=== PATIENT | male | born 1950 | race Caucasian/White ===

== ENCOUNTER → 2018-03-01 09:07 | Outpatient (CLI) | payer MEDICARE, OTHER, SELFPAY ==
--- NOTE | 2018-03-01 | PATH_ITS ---
Note [facility] Accession Number: [id number] TESTS RESULT FLAG UNITS REF RANGE LAB Clinician Provided Cytology Information No. of containers..01 ThinPrep Vial URINE DIAGNOSIS: 02 URINE NEGATIVE FOR HIGH-GRADE UROTHELIAL CARCINOMA ([facility]). Pathologist ICD10: 02 Z13.89 02 Ander Vanegas MD, Pathologist NPI- [id number] Jossie Vásquez, Network Support Administrator (ASC) 01 60 CC, YELLOW, CLOUDY /LCS FLAG LEGEND: L-Low Normal,H-High Normal,LL-Alert Low,HH-Alert High <-Panic Low,>-Panic High,A-Abnormal,AA-Critical Abnormal Performed at: 01 =Z [facility] [address], [place] [address] Ritchie Botello MD, 02 [facility] [address] [place] [id number] Cj Slade MD, A duplicate report has been generated due to demographic updates. Performed at: 01 [facility] [address], [place], [place] [id number] MD Ritchie Botello MD Phone: [phone]
[2018-03-01 09:22] LABS: Bacteria Urine None Seen
[2018-03-01 09:40] LABS: Add Manual Diff / Slide Review NO; Basophils Percent Auto 0.4 % (0-2); Eosinophils Percent Auto 2.8 % (2-4); Hematocrit 42.3 % (41-53); Hemoglobin 14.2 g/dL (13.5-17.5); Lymphocytes Percent Auto 24.6 % (25-40); Mean Corpuscular HGB Conc 33.5 % (30-36); Mean Corpuscular Hemoglobin 30.1 PG (26-34); Mean Corpuscular Volume 89.8 fL (80-100); Monocytes Percent Auto 7.5 % (3-14); Neutrophils Absolute Auto 4400 /uL (3000-5900); Neutrophils Percent Auto 64.7 % (50-75); Platelet Count 166 X10^3/uL (150-400); Red Blood Cell Count 4.71 X10^6/uL (4.5-5.9); Red Cell Distribution Width 14.1 % (11.6-14.8); White Blood Cell Count 6.9 X10^3/uL (4.5-11.0)
[2018-03-01 09:45] LABS: Appearance Urine UA CLOUDY; Bilirubin Urine UA NEGATIVE (NEGATIVE); Color Urine UA YELLOW; Glucose Urine UA NEGATIVE (Normal); Ketones Urine UA NEGATIVE (NEGATIVE); Leukocyte Esterase Urine UA 1+ (NEGATIVE); Nitrite Urine UA POSITIVE (Negative); Occult Blood Urine UA 1+ (Negative); Protein Urine UA 1+ (Negative); Specific Gravity Urine UA 1.015 (1.000-1.035); Urobilinogen Urine UA 0.2 E.U./dL (0.2)
[2018-03-01 10:31] LABS: Alanine Aminotransferase 25 IU/L (21-72); Albumin 3.8 g/dL (3.5-5.0); Albumin Globulin Ratio 1.3 (1.0-2.8); Alkaline Phosphatase 121 U/L (38-126); Aspartate Aminotransferase 18 IU/L (17-59); BUN Creatinine Ratio 23.3 (6-22); Bilirubin Total 0.3 mg/dL (0.2-1.3); Blood Urea Nitrogen 21 mg/dL (9-20); Carbon Dioxide 20 mmol/L (22-32); Chloride 110 mmol/L (98-107); Estimated Glomerular Filt Rate > 60.0 mL/min (>60); Glucose 114 mg/dL (80-110); HEMOLYSIS < 15 (0-50); Potassium 4.4 mmol/L (3.4-5.1); Sodium 140 mmol/L (137-145); Total Protein 6.8 g/dL (6.3-8.2)
[2018-03-01 10:32] LABS: RBC Urine 1-5/HPF (0-5/HPF); WBC Urine 10-30/HPF (0-5/HPF)
[2018-03-01 10:33] LABS: Amorphous Sediment Urine 3+; Culture Indicated Urine Specimen Cultured; Red Blood Cell Casts Urine 30-100/LPF (1-5/LPF)
--- NOTE | 2018-03-01 15:39 | PC.NURSE ---
Addendum entered by Cindi Grove R.N. 03/03/18 14:58: Micro came back on pt's urine submitted on 03/01. It's + for klebseilla pneumoniae. Sensitivity report faxed to [facility] clinic as well as [facility] (DR Dahl there today). Also called and spoke with Katharine to report + results and left message on [facility] clinic voicemail regarding the positive results. Original Note: Pt in for pre visit labs and urine specimen. Urine is being cx at this time. Source of urine was suprapubic catheter. Last time pt was seen her was approx 1 year ago and has since established care from Dr Garcia to Dr Dahl at the [facility]. I did fax these results to him for follow up. I tried to contact the clinic several times without success. Will brief 03/02 triage for follow up
--- NOTE | 2018-03-02 | DI.CT.S_ITS ---
PROCEDURE: CT ABDOMEN PELVIS WO/W CON INDICATIONS: survvaillence prostat cancer TECHNIQUE: After the administration of oral contrast, 5 mm thick sections acquired from the diaphragms to the iliac crests. After the administration of intravenous contrast, 5 mm thick sections acquired from the diaphragms to the symphysis. 5 mm thick coronal and sagittal reformats were acquired. For radiation dose reduction, the following was used: automated exposure control, adjustment of mA and/or kV according to patient size. COMPARISON: [facility], CT, IVP (ABD & PEL WWO CONTRAST), 12/13/2013, 9:51. [facility], CT, IVP (ABD & PEL WWO CONTRAST), 08/03/2014, 9:19. [facility], CT, IVP (ABD & PEL WWO CONTRAST), 02/27/2015, 11:43. [facility], CT, IVP (ABD & PEL WWO CONTRAST), 02/29/2016, 9:22. [facility], CT, IVP (ABD & PEL WWO CONTRAST), 03/03/2017, 10:39. FINDINGS: Image quality: Excellent. ABDOMEN: Lung bases: Lung bases are clear. Heart size is normal. Solid organs: Liver is normal in size and enhancement. Hepatic cyst is again noted measuring 6.3 cm on current study. Gallbladder appears normal. Biliary system is non-dilated. Pancreas enhances normally. Spleen is normal in size and enhancement. Splenules present anterior to the upper pole and at the anterior hilum of the spleen. 1 cm right adrenal nodule is unchanged and shows an internal attenuation of 9, consistent with adenoma. Both kidneys are normal in size. Small exophytic hypodensity in the anterolateral lower pole of the left kidney is unchanged. No hydronephrosis or nephrolithiasis. Bowel and peritoneum: Stomach, small and large bowel loops are normal in caliber and wall thickness. Surgical sutures adjacent to the cecum with nonvisualized appendix. Colonic diverticulosis. No free fluid or air. Nodes and vessels: No retroperitoneal or mesenteric adenopathy by size criteria. Aorta and inferior vena are normal in caliber. Miscellaneous: Supraumbilical hernia contains nonobstructed small bowel loops and fat. PELVIS: Genitourinary: Urinary bladder has been resected and neobladder is present with ileal conduit and right lower quadrant stoma. Prostate and seminal vesicles are nonvisualized.. Miscellaneous: No inguinal hernias or adenopathy. Bones: No suspicious bony lesions. No vertebral body compression fractures. IMPRESSION: 1. Status post urinary bladder resection with ileal conduit, no focal recurrence or metastatic disease seen. Status post prostatectomy. 2. Large hepatic cyst is unchanged. The 9 mm left renal cyst appears unchanged 3. 1 cm right adrenal adenoma is stable. 4. Uncomplicated colonic diverticulosis. Status post appendectomy. 5. Ventral hernia. Dictated by: Luis Reeder M.D. on 03/02/2018 at 11:35 Approved by: Luis Reeder M.D. on 03/02/2018 at 11:51
== END ==
PROVIDERS: Nurse Practitioner Gerontology; Family Provider Internal Medicine; PCP Internal Medicine; Visit Provider Internal Medicine Hematology & Oncology
DX: C67.9 Malignant neoplasm of bladder, unspecified (principal)
CPT/HCPCS: 36415; 80053; 81001; 85025; 87077; 87086; 87186

== ENCOUNTER → 2018-03-02 12:00 | Outpatient (CLI) | payer MEDICARE, OTHER, SELFPAY | PROVIDERS: Family Provider Internal Medicine; PCP Internal Medicine; Visit Provider Registered Nurse | DX: C67.9 Malignant neoplasm of bladder, unspecified (principal); C61 Malignant neoplasm of prostate; K76.89 Other specified diseases of liver; N28.1 Cyst of kidney, acquired; D35.01 Benign neoplasm of right adrenal gland; K57.90 Diverticulosis of intestine, part unspecified, without perforation or abscess without bleeding; K43.9 Ventral hernia without obstruction or gangrene | CPT/HCPCS: 71046; 74178; Q9967 ==

== ENCOUNTER → 2018-03-23 15:56 | Outpatient (CLI) | payer MEDICARE, OTHER, SELFPAY | LOC: DI 15:59 → CT 16:01 | PROVIDERS: Family Provider Internal Medicine; PCP Internal Medicine; Visit Provider Internal Medicine Hematology & Oncology | DX: Z53.9 Procedure and treatment not carried out, unspecified reason (principal) ==

== ENCOUNTER 2018-05-18 14:30 | Outpatient (RCR) | payer MEDICARE, OTHER, SELFPAY ==
--- NOTE | 2018-01-13 15:30 | PT.OIE ---
Current Diagnoses Morbid (severe) obesity due to excess calories (01/13/18) Pain in right knee (01/13/18) Pain in left knee (01/13/18) Low back pain (01/13/18) Difficulty in walking, not elsewhere classified (01/13/18) Weakness (01/13/18) Past Medical History (Last Updated 01/13/18 @ 15:12 by Lorenza Keating, PT) Depression (Acute) Past Surgical History (Last Updated 01/13/18 @ 15:13 by Lorenza Keating, PT) History of total knee arthroplasty (Acute) History of urostomy (Acute) Provider Visit Care Team Role Provider Type Esteban Garcia MD Family Provider Physician Primary Care Provider Specialty: Internal Medicine Address: [address] [place] [address], [id number] Email: HECTOR Encinas Attending Provider Advanced Practioner Clinician Specialty: Medical Address: [address] [place] [address], [id number] Email: Physical Therapy Initial Evaluation PT-OP-A Visit Information Start: 01/13/18 07:25 Freq: Status: Active Protocol: Document 01/13/18 14:58 [facility] (Rec: 01/13/18 15:29 [facility] [email or web address]) Out-Patient Physical Therapy Visit Information Visit Information Visit Type Initial Evaluation Visit Start Time 08:20 Visit Stop Time 09:00 Total Visit Minutes 40 Visit Number 1 Number of PROJECT ADMINISTRATOR Visits 0 PT-OP-B Current Condition Start: 01/13/18 07:25 Freq: Status: Active Protocol: Document 01/13/18 14:58 [facility] (Rec: 01/13/18 15:29 [facility] [email or web address]) Current Condition History of Current Condition Current Complaints weakness, B knee pain & LBP History of Current Condition Pt reports has lost 45 lbs recently (30 lbs in past 10 weeks with help of [facility] ). [facility] wants his exercise directed by a PT d/t his issues of LBP & B knee pain. Pt wants to continue to loose weight and wants a program to support this without aggrevating his knees or LB. Pt has hx of TKA which he did PT for in the past and did attend aquatic PT which he cont to do his exercises 3 days a week. Pt reports B knees give him pain especially with walking, extended activity, stairs and late in the day. He also reports the outside of his L foot hurts d/ t his reported supination ( feet were not evaluated this session d/t time). Pt waers SAS shoes or sketchers to help this. Treatment Goals Patient/Caregiver Goals be able to walk more without knee pain or fatigue, get up/ down from floor, have program to loose weight that does not aggrevate his knees or back PT-OP-G Mobility & Gait Start: 01/13/18 07:25 Freq: Status: Active Protocol: Document 01/13/18 14:58 [facility] (Rec: 01/13/18 15:29 [facility] [email or web address]) OP Gait Assessment Comments Gait Comments Dec overall push off with inc lat lean. PT-OP-K Range of Motion Start: 01/13/18 07:25 Freq: Status: Active Protocol: Document 01/13/18 14:58 [facility] (Rec: 01/13/18 15:29 [facility] [email or web address]) Knee Goniometric Range of Motion Knee Measured in Degrees Right Patient Position Supine Flexion Active (degrees) 110 Extension Active (degrees) 2 Left Patient Position Supine Flexion Active (degrees) 115 Extension Active (degrees) 2 PT-OP-M Strength Start: 01/13/18 07:25 Freq: Status: Active Protocol: Document 01/13/18 14:58 [facility] (Rec: 01/13/18 15:29 [facility] [email or web address]) Hip Strength Hip Manual Muscle Testing Right Flexion (L2) 5 Normal External Rotation 4 Good Internal Rotation 4 Good Left Flexion (L2) 5 Normal External Rotation 4- Good- Internal Rotation 4 Good Knee Strength Knee Manual Muscle Testing Right Flexion (S2) 4+ Good+ Extension (L3) 4+ Good+ Left Flexion (S2) 4 Good Extension (L3) 4+ Good+ Ankle/Foot Strength Ankle and Foot Manual Muscle Testing Right Dorsiflexion (L4) 5 Normal Plantarflexion (S1) 4+ Good+ Left Dorsiflexion (L4) 5 Normal Plantarflexion (S1) 4+ Good+ Comments seated testing PT-OP-Q Treatments Start: 01/13/18 07:25 Freq: Status: Active Protocol: Document 01/13/18 14:58 [facility] (Rec: 01/13/18 15:29 [facility] [email or web address]) Cardio Equipment Recumbent Stepper (Sci-Fit) Duration (Minutes) 3 Other edu on set up of seat & screen & encouraged to do at pool PT-OP-T Assessment and Plan Start: 01/13/18 07:25 Freq: Status: Active Protocol: Document 01/13/18 14:58 [facility] (Rec: 01/13/18 15:29 [facility] [email or web address]) Physical Therapy Assessment Rehab Potential Rehabilitation Potential Good Evaluation Complexity Number of Personal Factors/Comorbidities 3 or More Number of Body Systems Impaired 4 or More Clinical Presentation at Evaluation Stable Impairments Impairments Balance Gait Pain ROM Strength Goals Three Impairment Strength Mcc Goal (LTG) 5/5 LE strength to allow pt to inc walking distance to 1 mile. LTG Duration 03/15/18 Two Impairment up/down from ground Mcc Goal (LTG) Pt will be able to get up/down from ground independently & safely. LTG Duration 03/15/18 One Impairment strength Short Term Goal (STG) Indep with aquatic HEP STG Duration 02/12/18 Mcc Goal (LTG) Indep with gym program LTG Duration 03/15/18 Physical Therapy Plan Frequency and Duration Frequency of Treatment 2x/Week Duration of Treatment 2 months Plan of Care Start Date 01/13/18 Plan of Care End Date 03/15/18 Therapeutic Interventions Therapeutic Interventions Aquatic Therapy Balance Training Gait Training Manual Therapy Self-Care/Home Management Soft Tissue Mobilization Taping Therapeutic Exercises Modalities Cold Pack/Ice Massage Electric Stimulation Hot Packs Next Visit Focus/Plan Next Note Type Treatment Note Next Visit Plan Develop HEP for pool for challenging pt cardiovascularly & strength based for LEs & core; Teach patient about target HR
--- NOTE | 2018-01-13 15:30 | PT.OPPOC ---
Current Diagnoses Morbid (severe) obesity due to excess calories (01/13/18) Pain in right knee (01/13/18) Pain in left knee (01/13/18) Low back pain (01/13/18) Difficulty in walking, not elsewhere classified (01/13/18) Weakness (01/13/18) Provider Visit Care Team Role Provider Type Esteban Garcia MD Family Provider Physician Primary Care Provider Specialty: Internal Medicine Address: [address] [place] [address], [phone] Email: HECTOR Encinas Attending Provider Advanced Practioner Clinician Specialty: Medical Address: [address] [place] [address], [id number] Email: Plan Of Care PT-OP-T Assessment and Plan Start: 01/13/18 07:25 Freq: Status: Active Protocol: Document 01/13/18 14:58 [facility] (Rec: 01/13/18 15:29 [facility] [email or web address]) Physical Therapy Assessment Rehab Potential Rehabilitation Potential Good Evaluation Complexity Number of Personal Factors/Comorbidities 3 or More Number of Body Systems Impaired 4 or More Clinical Presentation at Evaluation Stable Impairments Impairments Balance Gait Pain ROM Strength Goals Three Impairment Strength Automatic Steel Tie Adjuster Goal (LTG) 5/5 LE strength to allow pt to inc walking distance to 1 mile. LTG Duration 03/15/18 Two Impairment up/down from ground Automatic Steel Tie Adjuster Goal (LTG) Pt will be able to get up/down from ground independently & safely. LTG Duration 03/15/18 One Impairment strength Short Term Goal (STG) Indep with aquatic HEP STG Duration 02/12/18 Jail Goal (LTG) Indep with gym program LTG Duration 03/15/18 Physical Therapy Plan Frequency and Duration Frequency of Treatment 2x/Week Duration of Treatment 2 months Plan of Care Start Date 01/13/18 Plan of Care End Date 03/15/18 Therapeutic Interventions Therapeutic Interventions Aquatic Therapy Balance Training Gait Training Manual Therapy Self-Care/Home Management Soft Tissue Mobilization Taping Therapeutic Exercises Modalities Cold Pack/Ice Massage Electric Stimulation Hot Packs Next Visit Focus/Plan Next Note Type Treatment Note Next Visit Plan Develop HEP for pool for challenging pt cardiovascularly & strength based for LEs & core; Teach patient about target HR Plan of Care Dates Plan of Care Start Date 01/13/18 Plan of Care End Date 03/15/18 Please Sign and Return: I have reviewed this Plan of Care and certify that the skilled therapy services above are required to meet the patient?s needs. Physician Signature Date Printed Name and Credentials Clinical Instructor Signature Printed Name and Credentials
--- NOTE | 2018-01-15 16:03 | PT.OTN ---
Current Diagnoses Morbid (severe) obesity due to excess calories (01/15/18) Pain in left knee (01/15/18) Physical Therapy Treatment Note PT-OP-A Visit Information Start: 01/13/18 07:25 Freq: Status: Active Protocol: Document 01/15/18 15:53 [facility] (Rec: 01/15/18 16:03 [facility] [id number]) Out-Patient Physical Therapy Visit Information Visit Information Visit Type Treatment Note Visit Start Time 11:00 Visit Stop Time 11:45 Total Visit Minutes 45 Visit Number 2 Number of RACING MANAGER Visits 0 Evaluation Information Evaluation Date 01/13/18 PT-OP-B Current Condition Start: 01/13/18 07:25 Freq: Status: Active Protocol: Document 01/13/18 14:58 [facility] (Rec: 01/13/18 15:29 [facility] [email or web address]) Current Condition History of Current Condition Current Complaints weakness, B knee pain & LBP History of Current Condition Pt reports has lost 45 lbs recently (30 lbs in past 10 weeks with help of [facility] ). [facility] wants his exercise directed by a PT d/t his issues of LBP & B knee pain. Pt wants to continue to loose weight and wants a program to support this without aggrevating his knees or LB. Pt has hx of TKA which he did PT for in the past and did attend aquatic PT which he cont to do his exercises 3 days a week. Pt reports B knees give him pain especially with walking, extended activity, stairs and late in the day. He also reports the outside of his L foot hurts d/ t his reported supination ( feet were not evaluated this session d/t time). Pt waers SAS shoes or sketchers to help this. Treatment Goals Patient/Caregiver Goals be able to walk more without knee pain or fatigue, get up/ down from floor, have program to loose weight that does not aggrevate his knees or back PT-OP-C Subjective Start: 01/13/18 07:25 Freq: Status: Active Protocol: Document 01/15/18 15:53 [facility] (Rec: 01/15/18 16:03 [facility] [id number]) OP-PT Subjective Patient Comments Patient Comments Excited to get started with aquatic therapy. Reports losing 29 lbs since starting at [facility]. Remains highly motivated. Frustrated that knee pain persists despite weight loss. PT-OP-G Mobility & Gait Start: 01/13/18 07:25 Freq: Status: Active Protocol: Document 01/13/18 14:58 [facility] (Rec: 01/13/18 15:29 [facility] [email or web address]) OP Gait Assessment Comments Gait Comments Dec overall push off with inc lat lean. PT-OP-K Range of Motion Start: 01/13/18 07:25 Freq: Status: Active Protocol: Document 01/13/18 14:58 [facility] (Rec: 01/13/18 15:29 [facility] [email or web address]) Knee Goniometric Range of Motion Knee Measured in Degrees Right Patient Position Supine Flexion Active (degrees) 110 Extension Active (degrees) 2 Left Patient Position Supine Flexion Active (degrees) 115 Extension Active (degrees) 2 PT-OP-M Strength Start: 01/13/18 07:25 Freq: Status: Active Protocol: Document 01/13/18 14:58 [facility] (Rec: 01/13/18 15:29 [facility] [email or web address]) Hip Strength Hip Manual Muscle Testing Right Flexion (L2) 5 Normal External Rotation 4 Good Internal Rotation 4 Good Left Flexion (L2) 5 Normal External Rotation 4- Good- Internal Rotation 4 Good Knee Strength Knee Manual Muscle Testing Right Flexion (S2) 4+ Good+ Extension (L3) 4+ Good+ Left Flexion (S2) 4 Good Extension (L3) 4+ Good+ Ankle/Foot Strength Ankle and Foot Manual Muscle Testing Right Dorsiflexion (L4) 5 Normal Plantarflexion (S1) 4+ Good+ Left Dorsiflexion (L4) 5 Normal Plantarflexion (S1) 4+ Good+ Comments seated testing PT-OP-Q Treatments Start: 01/13/18 07:25 Freq: Status: Active Protocol: Document 01/13/18 14:58 [facility] (Rec: 01/13/18 15:29 [facility] [email or web address]) Cardio Equipment Recumbent Stepper (Sci-Fit) Duration (Minutes) 3 Other edu on set up of seat & screen & encouraged to do at pool PT-OP-S Aquatic Treatment Start: 01/15/18 15:53 Freq: Status: Active Protocol: Document 01/15/18 15:53 [facility] (Rec: 01/15/18 16:03 [facility] [id number]) Aquatics Treatment Pool Entry/Exit Pool Entry/Exit Method Stairs Assistance Independent Water Walking Lunge Walk Water Level Chest Level Level of Assistance Verbal Cues Upper Extremity Exercises 1 Details forward pull downs Body Position Standing Water Level Chest Level Equipment med barbells Reps/Duration 10 Comments emphasis on core stabilization Spinal Exercises 1 Details supine crunch Equipment none Reps/Duration 20 [place] Activities [place] Activities Bicycle Bicycle Backwards [place] Running Hip Abduction/Adduction Sit Kicks Other Activities slow hip abd with ER and add with IR Duration 25 Comments including 10 min intervals 30 :30 submerging barbells during backward bicycle PT-OP-T Assessment and Plan Start: 01/13/18 07:25 Freq: Status: Active Protocol: Document 01/15/18 15:53 [facility] (Rec: 01/15/18 16:03 [facility] [id number]) Physical Therapy Assessment Rehab Potential Rehabilitation Potential Good Assessment Summary Assessment Frequent cues for LE alignment with all therapy activities; tendency toward LE external rotation right greater than left. Denied pain with aquatic exercise Physical Therapy Plan Next Visit Focus/Plan Next Note Type Treatment Note Next Visit Plan Target HR instruction, progression of ther ex as tolerated with continued emphasis on alignment, core stabilization with all activities, core strengthening
--- NOTE | 2018-01-18 13:00 | PT.OTN ---
Current Diagnoses Morbid (severe) obesity due to excess calories (01/18/18) Pain in left knee (01/18/18) Physical Therapy Treatment Note PT-OP-A Visit Information Start: 01/13/18 07:25 Freq: Status: Active Protocol: Document 01/18/18 13:00 [facility] (Rec: 01/18/18 15:50 [facility] [email or web address]) Out-Patient Physical Therapy Visit Information Visit Information Visit Type Treatment Note Visit Start Time 12:15 Visit Stop Time 13:00 Total Visit Minutes 45 Visit Number 3 Number of HAND PRESSER Visits 1 PT-OP-B Current Condition Start: 01/13/18 07:25 Freq: Status: Active Protocol: Document 01/13/18 14:58 [facility] (Rec: 01/13/18 15:29 [facility] [email or web address]) Current Condition History of Current Condition Current Complaints weakness, B knee pain & LBP History of Current Condition Pt reports has lost 45 lbs recently (30 lbs in past 10 weeks with help of [facility] ). [facility] wants his exercise directed by a PT d/t his issues of LBP & B knee pain. Pt wants to continue to loose weight and wants a program to support this without aggrevating his knees or LB. Pt has hx of TKA which he did PT for in the past and did attend aquatic PT which he cont to do his exercises 3 days a week. Pt reports B knees give him pain especially with walking, extended activity, stairs and late in the day. He also reports the outside of his L foot hurts d/ t his reported supination ( feet were not evaluated this session d/t time). Pt waers SAS shoes or sketchers to help this. Treatment Goals Patient/Caregiver Goals be able to walk more without knee pain or fatigue, get up/ down from floor, have program to loose weight that does not aggrevate his knees or back PT-OP-C Subjective Start: 01/13/18 07:25 Freq: Status: Active Protocol: Document 01/18/18 13:00 [facility] (Rec: 01/18/18 15:50 [facility] [email or web address]) OP-PT Subjective Patient Comments Patient Comments Pt. states he over did it last visit. States he had muscular pain for 3 days afterwards and was very fatigued. Hoping to back off a little bit today. PT-OP-G Mobility & Gait Start: 01/13/18 07:25 Freq: Status: Active Protocol: Document 01/13/18 14:58 [facility] (Rec: 01/13/18 15:29 [facility] [email or web address]) OP Gait Assessment Comments Gait Comments Dec overall push off with inc lat lean. PT-OP-K Range of Motion Start: 01/13/18 07:25 Freq: Status: Active Protocol: Document 01/13/18 14:58 [facility] (Rec: 01/13/18 15:29 [facility] [email or web address]) Knee Goniometric Range of Motion Knee Measured in Degrees Right Patient Position Supine Flexion Active (degrees) 110 Extension Active (degrees) 2 Left Patient Position Supine Flexion Active (degrees) 115 Extension Active (degrees) 2 PT-OP-M Strength Start: 01/13/18 07:25 Freq: Status: Active Protocol: Document 01/13/18 14:58 [facility] (Rec: 01/13/18 15:29 [facility] [email or web address]) Hip Strength Hip Manual Muscle Testing Right Flexion (L2) 5 Normal External Rotation 4 Good Internal Rotation 4 Good Left Flexion (L2) 5 Normal External Rotation 4- Good- Internal Rotation 4 Good Knee Strength Knee Manual Muscle Testing Right Flexion (S2) 4+ Good+ Extension (L3) 4+ Good+ Left Flexion (S2) 4 Good Extension (L3) 4+ Good+ Ankle/Foot Strength Ankle and Foot Manual Muscle Testing Right Dorsiflexion (L4) 5 Normal Plantarflexion (S1) 4+ Good+ Left Dorsiflexion (L4) 5 Normal Plantarflexion (S1) 4+ Good+ Comments seated testing PT-OP-Q Treatments Start: 01/13/18 07:25 Freq: Status: Active Protocol: Document 01/13/18 14:58 [facility] (Rec: 01/13/18 15:29 [facility] [email or web address]) Cardio Equipment Recumbent Stepper (Sci-Fit) Duration (Minutes) 3 Other edu on set up of seat & screen & encouraged to do at pool PT-OP-S Aquatic Treatment Start: 01/15/18 15:53 Freq: Status: Active Protocol: Document 01/18/18 13:00 [facility] (Rec: 01/18/18 15:50 [facility] [email or web address]) Aquatics Treatment Pool Entry/Exit Pool Entry/Exit Method Stairs Assistance Independent Water Walking Sideways Water Level Chest Level Walking Equipment Resistance Fins Forwards Water Level Chest Level Walking Equipment Resistance Fins Lunge Walk Water Level Chest Level Level of Assistance Verbal Cues Spinal Exercises 1 Details supine crunch Equipment Small Noodle Reps/Duration 20 Comments including obliques [place] Activities [place] Activities Bicycle Bicycle Backwards [place] Running Hip Abduction/Adduction Other Activities slow hip abd with ER and add with IR Duration 25 Comments including 10 min intervals 30 :30 submerging barbells during backward bicycle PT-OP-T Assessment and Plan Start: 01/13/18 07:25 Freq: Status: Active Protocol: Document 01/18/18 13:00 [facility] (Rec: 01/18/18 15:50 [facility] [email or web address]) Physical Therapy Assessment Assessment Summary Assessment Pt. decreased pace slightly with deep water cardio exercises, occasional cues needed for posture. Physical Therapy Plan Frequency and Duration Frequency of Treatment 2x/Week Duration of Treatment 2 months Plan of Care Start Date 01/13/18 Plan of Care End Date 03/15/18 Next Visit Focus/Plan Next Note Type Treatment Note Next Visit Plan Target HR instruction, progression of ther ex as tolerated with continued emphasis on alignment, core stabilization with all activities, core strengthening
--- NOTE | 2018-01-25 12:15 | PT.OTN ---
Current Diagnoses Morbid (severe) obesity due to excess calories (01/25/18) Pain in left knee (01/25/18) Physical Therapy Treatment Note PT-OP-A Visit Information Start: 01/13/18 07:25 Freq: Status: Active Protocol: Document 01/25/18 12:15 TMS (Rec: 01/25/18 15:23 TMS [email or web address]) Out-Patient Physical Therapy Visit Information Visit Information Visit Type Treatment Note Visit Start Time 11:30 Visit Stop Time 12:30 Total Visit Minutes 45 Visit Number 4 Number of TRIAL CONSULTANT Visits 2 PT-OP-B Current Condition Start: 01/13/18 07:25 Freq: Status: Active Protocol: Document 01/13/18 14:58 [facility] (Rec: 01/13/18 15:29 [facility] [email or web address]) Current Condition History of Current Condition Current Complaints weakness, B knee pain & LBP History of Current Condition Pt reports has lost 45 lbs recently (30 lbs in past 10 weeks with help of [facility] clinic ). Elmm wants his exercise directed by a PT d/t his issues of LBP & B knee pain. Pt wants to continue to loose weight and wants a program to support this without aggrevating his knees or LB. Pt has hx of TKA which he did PT for in the past and did attend aquatic PT which he cont to do his exercises 3 days a week. Pt reports B knees give him pain especially with walking, extended activity, stairs and late in the day. He also reports the outside of his L foot hurts d/ t his reported supination ( feet were not evaluated this session d/t time). Pt waers SAS shoes or sketchers to help this. Treatment Goals Patient/Caregiver Goals be able to walk more without knee pain or fatigue, get up/ down from floor, have program to loose weight that does not aggrevate his knees or back PT-OP-C Subjective Start: 01/13/18 07:25 Freq: Status: Active Protocol: Document 01/25/18 12:15 TMS (Rec: 01/25/18 15:23 TMS [email or web address]) OP-PT Subjective Patient Comments Patient Comments Pt. states he tolerated last treatment better then first. States he had slight pain in right hip after he was in pool independently last week. OK now. PT-OP-G Mobility & Gait Start: 01/13/18 07:25 Freq: Status: Active Protocol: Document 01/13/18 14:58 [facility] (Rec: 01/13/18 15:29 [facility] [email or web address]) OP Gait Assessment Comments Gait Comments Dec overall push off with inc lat lean. PT-OP-K Range of Motion Start: 01/13/18 07:25 Freq: Status: Active Protocol: Document 01/13/18 14:58 [facility] (Rec: 01/13/18 15:29 [facility] [email or web address]) Knee Goniometric Range of Motion Knee Measured in Degrees Right Patient Position Supine Flexion Active (degrees) 110 Extension Active (degrees) 2 Left Patient Position Supine Flexion Active (degrees) 115 Extension Active (degrees) 2 PT-OP-M Strength Start: 01/13/18 07:25 Freq: Status: Active Protocol: Document 01/13/18 14:58 [facility] (Rec: 01/13/18 15:29 [facility] [email or web address]) Hip Strength Hip Manual Muscle Testing Right Flexion (L2) 5 Normal External Rotation 4 Good Internal Rotation 4 Good Left Flexion (L2) 5 Normal External Rotation 4- Good- Internal Rotation 4 Good Knee Strength Knee Manual Muscle Testing Right Flexion (S2) 4+ Good+ Extension (L3) 4+ Good+ Left Flexion (S2) 4 Good Extension (L3) 4+ Good+ Ankle/Foot Strength Ankle and Foot Manual Muscle Testing Right Dorsiflexion (L4) 5 Normal Plantarflexion (S1) 4+ Good+ Left Dorsiflexion (L4) 5 Normal Plantarflexion (S1) 4+ Good+ Comments seated testing PT-OP-Q Treatments Start: 01/13/18 07:25 Freq: Status: Active Protocol: Document 01/13/18 14:58 [facility] (Rec: 01/13/18 15:29 [facility] [email or web address]) Cardio Equipment Recumbent Stepper (Sci-Fit) Duration (Minutes) 3 Other edu on set up of seat & screen & encouraged to do at pool PT-OP-S Aquatic Treatment Start: 01/15/18 15:53 Freq: Status: Active Protocol: Document 01/25/18 12:15 TMS (Rec: 01/25/18 15:23 TMS [email or web address]) Aquatics Treatment Pool Entry/Exit Pool Entry/Exit Method Stairs Assistance Independent Water Walking Sideways Water Level Chest Level Walking Equipment Resistance Fins Forwards Water Level Chest Level Walking Equipment Resistance Fins Lunge Walk Water Level Chest Level Walking Equipment Resistance Fins Level of Assistance Verbal Cues Lower Extremity Exercises 3 Details L.E. circumduction Body Position Standing Water Level Chest Level Equipment Resistance Fins Reps/Duration x 15 reps 2 Details Hip AB/AD Body Position Standing Water Level Chest Level Equipment Resistance Fins Reps/Duration x 15 reps 1 Details Hip flexion/extension Body Position Standing Water Level Chest Level Equipment Resistance Fins Reps/Duration x 15 reps Spinal Exercises 2 Details Deep water stabilization Water Level [place] Equipment Resistance Fins 1 Details supine crunch Equipment Large Noodle Reps/Duration 30 Comments including obliques [place] Activities [place] Activities Bicycle Bicycle Backwards Cross [place] Running Hip Abduction/Adduction Other Activities slow hip abd with ER and add with IR Duration 25 Comments Small resistance fins PT-OP-T Assessment and Plan Start: 01/13/18 07:25 Freq: Status: Active Protocol: Document 01/25/18 12:15 TMS (Rec: 01/25/18 15:23 TMS [email or web address]) Physical Therapy Assessment Assessment Summary Assessment Pt. tolerated increased resistance of fins with deep water exercises well, was fatigued after cardio exercises. No complaints of pain. Physical Therapy Plan Frequency and Duration Frequency of Treatment 2x/Week Duration of Treatment 2 months Plan of Care Start Date 01/13/18 Plan of Care End Date 03/15/18 Next Visit Focus/Plan Next Note Type Treatment Note Next Visit Plan Target HR instruction, progression of ther ex as tolerated with continued emphasis on alignment, core stabilization with all activities, core strengthening
--- NOTE | 2018-02-01 17:29 | PT.OTN ---
Current Diagnoses Morbid (severe) obesity due to excess calories (02/01/18) Pain in left knee (02/01/18) Physical Therapy Treatment Note PT-OP-A Visit Information Start: 01/13/18 07:25 Freq: Status: Active Protocol: Document 02/01/18 11:30 [facility] (Rec: 02/01/18 17:29 [facility] [id number]) Out-Patient Physical Therapy Visit Information Visit Information Visit Type Treatment Note Visit Start Time 11:30 Visit Stop Time 12:15 Total Visit Minutes 45 Visit Number 5 Number of LIBRARIAN HEAD Visits 0 PT-OP-B Current Condition Start: 01/13/18 07:25 Freq: Status: Active Protocol: Document 01/13/18 14:58 [facility] (Rec: 01/13/18 15:29 [facility] [email or web address]) Current Condition History of Current Condition Current Complaints weakness, B knee pain & LBP History of Current Condition Pt reports has lost 45 lbs recently (30 lbs in past 10 weeks with help of [facility] clinic ). Elmm wants his exercise directed by a PT d/t his issues of LBP & B knee pain. Pt wants to continue to loose weight and wants a program to support this without aggrevating his knees or LB. Pt has hx of TKA which he did PT for in the past and did attend aquatic PT which he cont to do his exercises 3 days a week. Pt reports B knees give him pain especially with walking, extended activity, stairs and late in the day. He also reports the outside of his L foot hurts d/ t his reported supination ( feet were not evaluated this session d/t time). Pt waers SAS shoes or sketchers to help this. Treatment Goals Patient/Caregiver Goals be able to walk more without knee pain or fatigue, get up/ down from floor, have program to loose weight that does not aggrevate his knees or back PT-OP-C Subjective Start: 01/13/18 07:25 Freq: Status: Active Protocol: Document 02/01/18 11:30 [facility] (Rec: 02/01/18 17:29 [facility] [id number]) OP-PT Subjective Patient Comments Patient Comments Reports he had low motivation for exercise last week, hoping to step it back up again this week. Has appointment at [facility] clinic this week. Patient Reported Progress Improving PT-OP-G Mobility & Gait Start: 01/13/18 07:25 Freq: Status: Active Protocol: Document 01/13/18 14:58 [facility] (Rec: 01/13/18 15:29 [facility] [email or web address]) OP Gait Assessment Comments Gait Comments Dec overall push off with inc lat lean. PT-OP-K Range of Motion Start: 01/13/18 07:25 Freq: Status: Active Protocol: Document 01/13/18 14:58 [facility] (Rec: 01/13/18 15:29 [facility] [email or web address]) Knee Goniometric Range of Motion Knee Measured in Degrees Right Patient Position Supine Flexion Active (degrees) 110 Extension Active (degrees) 2 Left Patient Position Supine Flexion Active (degrees) 115 Extension Active (degrees) 2 PT-OP-M Strength Start: 01/13/18 07:25 Freq: Status: Active Protocol: Document 01/13/18 14:58 [facility] (Rec: 01/13/18 15:29 [facility] [email or web address]) Hip Strength Hip Manual Muscle Testing Right Flexion (L2) 5 Normal External Rotation 4 Good Internal Rotation 4 Good Left Flexion (L2) 5 Normal External Rotation 4- Good- Internal Rotation 4 Good Knee Strength Knee Manual Muscle Testing Right Flexion (S2) 4+ Good+ Extension (L3) 4+ Good+ Left Flexion (S2) 4 Good Extension (L3) 4+ Good+ Ankle/Foot Strength Ankle and Foot Manual Muscle Testing Right Dorsiflexion (L4) 5 Normal Plantarflexion (S1) 4+ Good+ Left Dorsiflexion (L4) 5 Normal Plantarflexion (S1) 4+ Good+ Comments seated testing PT-OP-Q Treatments Start: 01/13/18 07:25 Freq: Status: Active Protocol: Document 01/13/18 14:58 [facility] (Rec: 01/13/18 15:29 [facility] [email or web address]) Cardio Equipment Recumbent Stepper (Sci-Fit) Duration (Minutes) 3 Other edu on set up of seat & screen & encouraged to do at pool PT-OP-S Aquatic Treatment Start: 01/15/18 15:53 Freq: Status: Active Protocol: Document 02/01/18 11:30 [facility] (Rec: 02/01/18 17:29 [facility] [id number]) Aquatics Treatment Pool Entry/Exit Pool Entry/Exit Method Stairs Assistance Independent Water Walking Sideways Water Level Chest Level Walking Equipment Resistance Fins Forwards Water Level Chest Level Walking Equipment Resistance Fins Lunge Walk Water Level Chest Level Walking Equipment Resistance Fins Level of Assistance Verbal Cues Upper Extremity Exercises 1 Details plank Body Position Standing Water Level Chest Level Equipment long barbell Reps/Duration 6 Comments emphasis on core stabilization Spinal Exercises 1 Details supine crunch Equipment Large Noodle Reps/Duration 30 Comments including obliques [place] Activities [place] Activities Bicycle Bicycle Backwards Cross [place] Running Hip Abduction/Adduction Duration 25 Comments Small resistance fins 22 minutes of intervals PT-OP-T Assessment and Plan Start: 01/13/18 07:25 Freq: Status: Active Protocol: Document 02/01/18 11:30 [facility] (Rec: 02/01/18 17:29 [facility] [id number]) Physical Therapy Assessment Goals Three Impairment Strength Nuclear Chemistry Technician Goal (LTG) 5/5 LE strength to allow pt to inc walking distance to 1 mile. LTG Duration 03/15/18 Two Impairment up/down from ground Senior Care Goal (LTG) Pt will be able to get up/down from ground independently & safely. LTG Duration 03/15/18 One Impairment strength Short Term Goal (STG) Indep with aquatic HEP STG Duration 02/12/18 Senior Care Goal (LTG) Indep with gym program LTG Duration 03/15/18 Assessment Summary Assessment Fatigued with exercises but tolerated progress of intervals well today, mod fatigue. Plank exercise required moderate cues and manual assist on last rep Physical Therapy Plan Frequency and Duration Frequency of Treatment 2x/Week Duration of Treatment 2 months Plan of Care Start Date 01/13/18 Plan of Care End Date 03/15/18 Therapeutic Interventions Therapeutic Interventions Aquatic Therapy Balance Training Gait Training Manual Therapy Self-Care/Home Management Soft Tissue Mobilization Taping Therapeutic Exercises Modalities Cold Pack/Ice Massage Electric Stimulation Hot Packs Next Visit Focus/Plan Next Note Type Treatment Note Next Visit Plan Continue aquatic exercise progression.
--- NOTE | 2018-02-04 11:02 | PT.OTN ---
Current Diagnoses Morbid (severe) obesity due to excess calories (02/04/18) Pain in left knee (02/04/18) Physical Therapy Treatment Note PT-OP-A Visit Information Start: 01/13/18 07:25 Freq: Status: Active Protocol: Document 02/04/18 10:52 EA (Rec: 02/04/18 11:02 EA [id number]) Out-Patient Physical Therapy Visit Information Visit Information Visit Type Treatment Note Visit Start Time 09:00 Visit Stop Time 09:45 Total Visit Minutes 45 Visit Number 6 PT-OP-B Current Condition Start: 01/13/18 07:25 Freq: Status: Active Protocol: Document 01/13/18 14:58 [facility] (Rec: 01/13/18 15:29 [facility] [email or web address]) Current Condition History of Current Condition Current Complaints weakness, B knee pain & LBP History of Current Condition Pt reports has lost 45 lbs recently (30 lbs in past 10 weeks with help of [facility] clinic ). Elmm wants his exercise directed by a PT d/t his issues of LBP & B knee pain. Pt wants to continue to loose weight and wants a program to support this without aggrevating his knees or LB. Pt has hx of TKA which he did PT for in the past and did attend aquatic PT which he cont to do his exercises 3 days a week. Pt reports B knees give him pain especially with walking, extended activity, stairs and late in the day. He also reports the outside of his L foot hurts d/ t his reported supination ( feet were not evaluated this session d/t time). Pt waers SAS shoes or sketchers to help this. Treatment Goals Patient/Caregiver Goals be able to walk more without knee pain or fatigue, get up/ down from floor, have program to loose weight that does not aggrevate his knees or back PT-OP-C Subjective Start: 01/13/18 07:25 Freq: Status: Active Protocol: Document 02/04/18 10:52 EA (Rec: 02/04/18 11:02 EA [id number]) OP-PT Subjective Patient Comments Patient Comments Pt reports [place] of [place] PT and and his goals is continue to lose weight with the use of safe exercises technique and education; states wants to loss more weight to prevent from having knee surgery. Patient reports that he lost > 50 lbs of BW since PT-OP-G Mobility & Gait Start: 01/13/18 07:25 Freq: Status: Active Protocol: Document 01/13/18 14:58 [facility] (Rec: 01/13/18 15:29 [facility] [email or web address]) OP Gait Assessment Comments Gait Comments Jun overall push off with inc lat lean. PT-OP-K Range of Motion Start: 01/13/18 07:25 Freq: Status: Active Protocol: Document 01/13/18 14:58 [facility] (Rec: 01/13/18 15:29 [facility] [email or web address]) Knee Goniometric Range of Motion Knee Measured in Degrees Right Patient Position Supine Flexion Active (degrees) 110 Extension Active (degrees) 2 Left Patient Position Supine Flexion Active (degrees) 115 Extension Active (degrees) 2 PT-OP-M Strength Start: 01/13/18 07:25 Freq: Status: Active Protocol: Document 01/13/18 14:58 [facility] (Rec: 01/13/18 15:29 [facility] [email or web address]) Hip Strength Hip Manual Muscle Testing Right Flexion (L2) 5 Normal External Rotation 4 Good Internal Rotation 4 Good Left Flexion (L2) 5 Normal External Rotation 4- Good- Internal Rotation 4 Good Knee Strength Knee Manual Muscle Testing Right Flexion (S2) 4+ Good+ Extension (L3) 4+ Good+ Left Flexion (S2) 4 Good Extension (L3) 4+ Good+ Ankle/Foot Strength Ankle and Foot Manual Muscle Testing Right Dorsiflexion (L4) 5 Normal Plantarflexion (S1) 4+ Good+ Left Dorsiflexion (L4) 5 Normal Plantarflexion (S1) 4+ Good+ Comments seated testing PT-OP-Q Treatments Start: 01/13/18 07:25 Freq: Status: Active Protocol: Document 02/04/18 10:52 [facility] (Rec: 02/04/18 11:02 EA [id number]) Cardio Equipment Recumbent Stepper (Sci-Fit) Duration (Minutes) 5 Other Cool down Recumbent Bicycle Duration (Minutes) 10 Other warm up Gym Equipment Cable Column (Body Solid) Rows Resistance x 4-5 pltes Reps/Time x 15 reps Lat Pull Down Details wide and close [place] Resistance 4-5 plates Reps/Time x 15 reps Shuttle Recovery Bilateral Squats Details 90 deg knee and hip angle Resistance 4-6 cords Shuttle Recovery Platform Stable Reps/Time x 15 reps x 3 sets Therapeutic Exercises Standing Exercises 1 Standing Exercise Name Semi steady squat: DB shoulder press,lateral raises, front raises Resistance 5 lbs DB Reps/Minutes 15 reps Comments Cues with form PT-OP-S Aquatic Treatment Start: 01/15/18 15:53 Freq: Status: Active Protocol: Document 02/01/18 11:30 [facility] (Rec: 02/01/18 17:29 [facility] [id number]) Aquatics Treatment Pool Entry/Exit Pool Entry/Exit Method Stairs Assistance Independent Water Walking Sideways Water Level Chest Level Walking Equipment Resistance Fins Forwards Water Level Chest Level Walking Equipment Resistance Fins Lunge Walk Water Level Chest Level Walking Equipment Resistance Fins Level of Assistance Verbal Cues Upper Extremity Exercises 1 Details plank Body Position Standing Water Level Chest Level Equipment long barbell Reps/Duration 6 Comments emphasis on core stabilization Spinal Exercises 1 Details supine crunch Equipment Large Noodle Reps/Duration 30 Comments including obliques [place] Activities [place] Activities Bicycle Bicycle Backwards [place] Running Hip Abduction/Adduction Duration 25 Comments Small resistance fins 22 minutes of intervals PT-OP-T Assessment and Plan Start: 01/13/18 07:25 Freq: Status: Active Protocol: Document 02/04/18 10:52 EA (Rec: 02/04/18 11:02 EA [id number]) Physical Therapy Assessment Assessment Summary Assessment Patient requires cues with cardion and toher resistance exercises as patient tends to push to maximum limit. Patient tolerated treatment well with no c/o pain and difficulty. Pt educated and showed good understanding with all exercises. Physical Therapy Plan Next Visit Focus/Plan Next Note Type Treatment Note Next Visit Plan Provide HEP.
--- NOTE | 2018-02-08 13:45 | PT.OTN ---
Current Diagnoses Morbid (severe) obesity due to excess calories (02/08/18) Pain in left knee (02/08/18) Physical Therapy Treatment Note PT-OP-A Visit Information Start: 01/13/18 07:25 Freq: Status: Active Protocol: Document 02/08/18 13:45 [facility] (Rec: 02/08/18 15:22 [facility] [email or web address]) Out-Patient Physical Therapy Visit Information Visit Information Visit Type Treatment Note Visit Start Time 13:00 Visit Stop Time 13:45 Total Visit Minutes 45 Visit Number 7 Number of [employer] OFFICER Visits 1 PT-OP-B Current Condition Start: 01/13/18 07:25 Freq: Status: Active Protocol: Document 01/13/18 14:58 [facility] (Rec: 01/13/18 15:29 [facility] [email or web address]) Current Condition History of Current Condition Current Complaints weakness, B knee pain & LBP History of Current Condition Pt reports has lost 45 lbs recently (30 lbs in past 10 weeks with help of [facility] clinic ). Elmm wants his exercise directed by a PT d/t his issues of LBP & B knee pain. Pt wants to continue to loose weight and wants a program to support this without aggrevating his knees or LB. Pt has hx of TKA which he did PT for in the past and did attend aquatic PT which he cont to do his exercises 3 days a week. Pt reports B knees give him pain especially with walking, extended activity, stairs and late in the day. He also reports the outside of his L foot hurts d/ t his reported supination ( feet were not evaluated this session d/t time). Pt waers SAS shoes or sketchers to help this. Treatment Goals Patient/Caregiver Goals be able to walk more without knee pain or fatigue, get up/ down from floor, have program to loose weight that does not aggrevate his knees or back PT-OP-C Subjective Start: 01/13/18 07:25 Freq: Status: Active Protocol: Document 02/08/18 13:45 [facility] (Rec: 02/08/18 15:22 [facility] [email or web address]) OP-PT Subjective Patient Comments Patient Comments Pt. states he's lost 50 pounds this year. PT-OP-G Mobility & Gait Start: 01/13/18 07:25 Freq: Status: Active Protocol: Document 01/13/18 14:58 [facility] (Rec: 01/13/18 15:29 [facility] [email or web address]) OP Gait Assessment Comments Gait Comments Dec overall push off with inc lat lean. PT-OP-K Range of Motion Start: 01/13/18 07:25 Freq: Status: Active Protocol: Document 01/13/18 14:58 [facility] (Rec: 01/13/18 15:29 [facility] [email or web address]) Knee Goniometric Range of Motion Knee Measured in Degrees Right Patient Position Supine Flexion Active (degrees) 110 Extension Active (degrees) 2 Left Patient Position Supine Flexion Active (degrees) 115 Extension Active (degrees) 2 PT-OP-M Strength Start: 01/13/18 07:25 Freq: Status: Active Protocol: Document 01/13/18 14:58 [facility] (Rec: 01/13/18 15:29 [facility] [email or web address]) Hip Strength Hip Manual Muscle Testing Right Flexion (L2) 5 Normal External Rotation 4 Good Internal Rotation 4 Good Left Flexion (L2) 5 Normal External Rotation 4- Good- Internal Rotation 4 Good Knee Strength Knee Manual Muscle Testing Right Flexion (S2) 4+ Good+ Extension (L3) 4+ Good+ Left Flexion (S2) 4 Good Extension (L3) 4+ Good+ Ankle/Foot Strength Ankle and Foot Manual Muscle Testing Right Dorsiflexion (L4) 5 Normal Plantarflexion (S1) 4+ Good+ Left Dorsiflexion (L4) 5 Normal Plantarflexion (S1) 4+ Good+ Comments seated testing PT-OP-Q Treatments Start: 01/13/18 07:25 Freq: Status: Active Protocol: Document 02/04/18 10:52 EA (Rec: 02/04/18 11:02 EA [id number]) Cardio Equipment Recumbent Stepper (Sci-Fit) Duration (Minutes) 5 Other Cool down Recumbent Bicycle Duration (Minutes) 10 Other warm up Gym Equipment Cable Column (Body Solid) Rows Resistance x 4-5 pltes Reps/Time x 15 reps Lat Pull Down Details wide and close translator deaf Resistance 4-5 plates Reps/Time x 15 reps Shuttle Recovery Bilateral Squats Details 90 deg knee and hip angle Resistance 4-6 cords Shuttle Recovery Platform Stable Reps/Time x 15 reps x 3 sets Therapeutic Exercises Standing Exercises 1 Standing Exercise Name Semi steady squat: DB shoulder press,lateral raises, front raises Resistance 5 lbs DB Reps/Minutes 15 reps Comments Cues with form PT-OP-S Aquatic Treatment Start: 01/15/18 15:53 Freq: Status: Active Protocol: Document 02/08/18 13:45 [facility] (Rec: 02/08/18 15:22 [facility] [email or web address]) Aquatics Treatment Pool Entry/Exit Pool Entry/Exit Method Stairs Assistance Independent Water Walking Sideways Water Level Chest Level Walking Equipment Resistance Fins Forwards Water Level Chest Level Walking Equipment Resistance Fins Comments Marching Lunge Walk Water Level Chest Level Walking Equipment Resistance Fins Level of Assistance Verbal Cues Upper Extremity Exercises 1 Details plank Body Position Standing Water Level Chest Level Equipment long barbell Reps/Duration 10 Comments emphasis on core stabilization Spinal Exercises 2 Details Deep water stabilization Water Level [place] Equipment Large barbells Comments including single and double arm pull downs 1 Details supine crunch Equipment Large Noodle Reps/Duration 30 Comments including obliques [place] Activities [place] Activities Bicycle Bicycle Backwards [place] Running Hip Abduction/Adduction Duration 25 Comments Small resistance fins, 5 rounds of 30/30 PT-OP-T Assessment and Plan Start: 01/13/18 07:25 Freq: Status: Active Protocol: Document 02/08/18 13:45 [facility] (Rec: 02/08/18 15:22 [facility] [email or web address]) Physical Therapy Assessment Assessment Summary Assessment Pt. fatigued after intervals, standing plank exercises challenging. Physical Therapy Plan Frequency and Duration Frequency of Treatment 2x/Week Duration of Treatment 2 months Plan of Care Start Date 01/13/18 Plan of Care End Date 03/15/18 Next Visit Focus/Plan Next Note Type Treatment Note Next Visit Plan Continue aquatics and land P.T . progression, provide HEP for land.
--- NOTE | 2018-02-11 16:48 | PT.OTN ---
Current Diagnoses Morbid (severe) obesity due to excess calories (02/11/18) Pain in left knee (02/11/18) Physical Therapy Treatment Note PT-OP-A Visit Information Start: 01/13/18 07:25 Freq: Status: Active Protocol: Document 02/11/18 13:01 [facility] (Rec: 02/11/18 13:56 [facility] [id number]) Out-Patient Physical Therapy Visit Information Visit Information Visit Type Treatment Note Visit Start Time 13:00 Visit Stop Time 13:45 Total Visit Minutes 45 Visit Number 7 Number of CUSHION INSTALLER Visits 1 PT-OP-B Current Condition Start: 01/13/18 07:25 Freq: Status: Active Protocol: Document 01/13/18 14:58 [facility] (Rec: 01/13/18 15:29 [facility] [email or web address]) Current Condition History of Current Condition Current Complaints weakness, B knee pain & LBP History of Current Condition Pt reports has lost 45 lbs recently (30 lbs in past 10 weeks with help of [facility] clinic ). Elmm wants his exercise directed by a PT d/t his issues of LBP & B knee pain. Pt wants to continue to loose weight and wants a program to support this without aggrevating his knees or LB. Pt has hx of TKA which he did PT for in the past and did attend aquatic PT which he cont to do his exercises 3 days a week. Pt reports B knees give him pain especially with walking, extended activity, stairs and late in the day. He also reports the outside of his L foot hurts d/ t his reported supination ( feet were not evaluated this session d/t time). Pt waers SAS shoes or sketchers to help this. Treatment Goals Patient/Caregiver Goals be able to walk more without knee pain or fatigue, get up/ down from floor, have program to loose weight that does not aggrevate his knees or back PT-OP-C Subjective Start: 01/13/18 07:25 Freq: Status: Active Protocol: Document 02/11/18 13:01 [facility] (Rec: 02/11/18 13:56 [facility] [id number]) OP-PT Subjective Patient Comments Patient Comments No new c/o. Still working to lose more weight, 35 if possible. Patient Reported Progress Improving PT-OP-G Mobility & Gait Start: 01/13/18 07:25 Freq: Status: Active Protocol: Document 01/13/18 14:58 [facility] (Rec: 01/13/18 15:29 [facility] [email or web address]) OP Gait Assessment Comments Gait Comments Dec overall push off with inc lat lean. PT-OP-K Range of Motion Start: 01/13/18 07:25 Freq: Status: Active Protocol: Document 01/13/18 14:58 [facility] (Rec: 01/13/18 15:29 [facility] [email or web address]) Knee Goniometric Range of Motion Knee Measured in Degrees Right Patient Position Supine Flexion Active (degrees) 110 Extension Active (degrees) 2 Left Patient Position Supine Flexion Active (degrees) 115 Extension Active (degrees) 2 PT-OP-M Strength Start: 01/13/18 07:25 Freq: Status: Active Protocol: Document 01/13/18 14:58 [facility] (Rec: 01/13/18 15:29 [facility] [email or web address]) Hip Strength Hip Manual Muscle Testing Right Flexion (L2) 5 Normal External Rotation 4 Good Internal Rotation 4 Good Left Flexion (L2) 5 Normal External Rotation 4- Good- Internal Rotation 4 Good Knee Strength Knee Manual Muscle Testing Right Flexion (S2) 4+ Good+ Extension (L3) 4+ Good+ Left Flexion (S2) 4 Good Extension (L3) 4+ Good+ Ankle/Foot Strength Ankle and Foot Manual Muscle Testing Right Dorsiflexion (L4) 5 Normal Plantarflexion (S1) 4+ Good+ Left Dorsiflexion (L4) 5 Normal Plantarflexion (S1) 4+ Good+ Comments seated testing PT-OP-Q Treatments Start: 01/13/18 07:25 Freq: Status: Active Protocol: Document 02/11/18 13:01 [facility] (Rec: 02/11/18 13:56 [facility] [id number]) Cardio Equipment Elliptical Duration (Minutes) 3 Resistance 1 Recumbent Stepper (Sci-Fit) Duration (Minutes) 5 Resistance 4 Recumbent Bicycle Duration (Minutes) 10 Resistance 6 Gym Equipment Cable Column (Body Solid) Rows Resistance x 4-5 pltes Reps/Time x 15 reps Lat Pull Down Details wide and close flyer repairer Resistance 4-5 plates Reps/Time x 15 reps Shuttle Recovery Bilateral Squats Details 90 deg knee and hip angle Resistance 4-6 cords Shuttle Recovery Platform Stable Reps/Time x 15 reps x 3 sets Therapeutic Exercises Sitting Exercises 1 Sitting Exercise Name seated hamstring curl Side bilateral Resistance 50 Reps/Minutes 2 x 10 Standing Exercises 4 Standing Exercise Name HS stretch Reps/Minutes 2 reps 3 Standing Exercise Name sidestepping with yellow theraband 2 Standing Exercise Name HC stretch Equipment Used AILYN 1 Standing Exercise Name Semi steady squat: DB shoulder press,lateral raises, front raises Resistance 5 lbs DB Reps/Minutes 15 reps Comments Cues with form PT-OP-S Aquatic Treatment Start: 01/15/18 15:53 Freq: Status: Active Protocol: Document 02/08/18 13:45 [facility] (Rec: 02/08/18 15:22 [facility] [email or web address]) Aquatics Treatment Pool Entry/Exit Pool Entry/Exit Method Stairs Assistance Independent Water Walking Sideways Water Level Chest Level Walking Equipment Resistance Fins Forwards Water Level Chest Level Walking Equipment Resistance Fins Comments Marching Lunge Walk Water Level Chest Level Walking Equipment Resistance Fins Level of Assistance Verbal Cues Upper Extremity Exercises 1 Details plank Body Position Standing Water Level Chest Level Equipment long barbell Reps/Duration 10 Comments emphasis on core stabilization Spinal Exercises 2 Details Deep water stabilization Water Level [place] Equipment Large barbells Comments including single and double arm pull downs 1 Details supine crunch Equipment Large Noodle Reps/Duration 30 Comments including obliques [place] Activities [place] Activities Bicycle Bicycle Backwards [place] Running Hip Abduction/Adduction Duration 25 Comments Small resistance fins, 5 rounds of 30/30 PT-OP-T Assessment and Plan Start: 01/13/18 07:25 Freq: Status: Active Protocol: Document 02/11/18 13:01 [facility] (Rec: 02/11/18 13:56 [facility] [id number]) Physical Therapy Assessment Goals Three Impairment Strength Mis Specialist Goal (LTG) 5/5 LE strength to allow pt to inc walking distance to 1 mile. LTG Duration 03/15/18 Two Impairment up/down from ground Mis Specialist Goal (LTG) Pt will be able to get up/down from ground independently & safely. LTG Duration 03/15/18 One Impairment strength Short Term Goal (STG) Indep with aquatic HEP STG Duration 02/12/18 Half-Way Goal (LTG) Indep with gym program LTG Duration 03/15/18 Assessment Summary Assessment Fatigued but no pain with ther ex Physical Therapy Plan Frequency and Duration Frequency of Treatment 2x/Week Duration of Treatment 2 months Plan of Care Start Date 01/13/18 Plan of Care End Date 03/15/18 Therapeutic Interventions Therapeutic Interventions Aquatic Therapy Balance Training Gait Training Manual Therapy Self-Care/Home Management Soft Tissue Mobilization Taping Therapeutic Exercises Modalities Cold Pack/Ice Massage Electric Stimulation Hot Packs Next Visit Focus/Plan Next Note Type Treatment Note Next Visit Plan Continue aquatics and land P.T . progression, treadmill trial as able or timed walk.
--- NOTE | 2018-02-15 15:48 | PT.OTN ---
Current Diagnoses Morbid (severe) obesity due to excess calories (02/15/18) Pain in left knee (02/15/18) Physical Therapy Treatment Note PT-OP-A Visit Information Start: 01/13/18 07:25 Freq: Status: Active Protocol: Document 02/15/18 11:30 [facility] (Rec: 02/15/18 15:48 [facility] [email or web address]) Out-Patient Physical Therapy Visit Information Visit Information Visit Start Time 11:30 Visit Stop Time 12:15 Total Visit Minutes 45 Visit Number 9 Number of CEMENT DESPATCH OPERATOR Visits 1 PT-OP-B Current Condition Start: 01/13/18 07:25 Freq: Status: Active Protocol: Document 01/13/18 14:58 [facility] (Rec: 01/13/18 15:29 [facility] [email or web address]) Current Condition History of Current Condition Current Complaints weakness, B knee pain & LBP History of Current Condition Pt reports has lost 45 lbs recently (30 lbs in past 10 weeks with help of [facility] clinic ). Elmm wants his exercise directed by a PT d/t his issues of LBP & B knee pain. Pt wants to continue to loose weight and wants a program to support this without aggrevating his knees or LB. Pt has hx of TKA which he did PT for in the past and did attend aquatic PT which he cont to do his exercises 3 days a week. Pt reports B knees give him pain especially with walking, extended activity, stairs and late in the day. He also reports the outside of his L foot hurts d/ t his reported supination ( feet were not evaluated this session d/t time). Pt waers SAS shoes or sketchers to help this. Treatment Goals Patient/Caregiver Goals be able to walk more without knee pain or fatigue, get up/ down from floor, have program to loose weight that does not aggrevate his knees or back PT-OP-C Subjective Start: 01/13/18 07:25 Freq: Status: Active Protocol: Document 02/15/18 11:30 [facility] (Rec: 02/15/18 15:48 [facility] [email or web address]) OP-PT Subjective Patient Comments Patient Comments Pt with no new complaints. Patient Reported Progress Improving PT-OP-G Mobility & Gait Start: 01/13/18 07:25 Freq: Status: Active Protocol: Document 01/13/18 14:58 [facility] (Rec: 01/13/18 15:29 [facility] [email or web address]) OP Gait Assessment Comments Gait Comments Dec overall push off with inc lat lean. PT-OP-K Range of Motion Start: 01/13/18 07:25 Freq: Status: Active Protocol: Document 01/13/18 14:58 [facility] (Rec: 01/13/18 15:29 [facility] [email or web address]) Knee Goniometric Range of Motion Knee Measured in Degrees Right Patient Position Supine Flexion Active (degrees) 110 Extension Active (degrees) 2 Left Patient Position Supine Flexion Active (degrees) 115 Extension Active (degrees) 2 PT-OP-M Strength Start: 01/13/18 07:25 Freq: Status: Active Protocol: Document 01/13/18 14:58 [facility] (Rec: 01/13/18 15:29 [facility] [email or web address]) Hip Strength Hip Manual Muscle Testing Right Flexion (L2) 5 Normal External Rotation 4 Good Internal Rotation 4 Good Left Flexion (L2) 5 Normal External Rotation 4- Good- Internal Rotation 4 Good Knee Strength Knee Manual Muscle Testing Right Flexion (S2) 4+ Good+ Extension (L3) 4+ Good+ Left Flexion (S2) 4 Good Extension (L3) 4+ Good+ Ankle/Foot Strength Ankle and Foot Manual Muscle Testing Right Dorsiflexion (L4) 5 Normal Plantarflexion (S1) 4+ Good+ Left Dorsiflexion (L4) 5 Normal Plantarflexion (S1) 4+ Good+ Comments seated testing PT-OP-Q Treatments Start: 01/13/18 07:25 Freq: Status: Active Protocol: Document 02/11/18 13:01 [facility] (Rec: 02/11/18 13:56 [facility] [id number]) Cardio Equipment Elliptical Duration (Minutes) 3 Resistance 1 Recumbent Stepper (Sci-Fit) Duration (Minutes) 5 Resistance 4 Recumbent Bicycle Duration (Minutes) 10 Resistance 6 Gym Equipment Cable Column (Body Solid) Rows Resistance x 4-5 pltes Reps/Time x 15 reps Lat Pull Down Details wide and close security and compliance project manager Resistance 4-5 plates Reps/Time x 15 reps Shuttle Recovery Bilateral Squats Details 90 deg knee and hip angle Resistance 4-6 cords Shuttle Recovery Platform Stable Reps/Time x 15 reps x 3 sets Therapeutic Exercises Sitting Exercises 1 Sitting Exercise Name seated hamstring curl Side bilateral Resistance 50 Reps/Minutes 2 x 10 Standing Exercises 4 Standing Exercise Name HS stretch Reps/Minutes 2 reps 3 Standing Exercise Name sidestepping with yellow theraband 2 Standing Exercise Name HC stretch Equipment Used AILYN 1 Standing Exercise Name Semi steady squat: DB shoulder press,lateral raises, front raises Resistance 5 lbs DB Reps/Minutes 15 reps Comments Cues with form PT-OP-S Aquatic Treatment Start: 01/15/18 15:53 Freq: Status: Active Protocol: Document 02/15/18 11:30 [facility] (Rec: 02/15/18 15:48 [facility] [email or web address]) Aquatics Treatment Pool Entry/Exit Pool Entry/Exit Method Stairs Assistance Independent Upper Extremity Exercises 1 Details plank Body Position Standing Water Level Chest Level Equipment long barbell Reps/Duration 10 Comments emphasis on core stabilization Spinal Exercises 2 Details Deep water stabilization Water Level [place] Equipment Large barbells Comments including single and double arm pull downs 1 Details supine crunch Equipment Large Noodle Reps/Duration 30 Comments including obliques [place] Activities [place] Activities Bicycle Bicycle Backwards [place] Running Hip Abduction/Adduction Duration 25 Comments Small resistance fins, 5 rounds of 30/30 PT-OP-T Assessment and Plan Start: 01/13/18 07:25 Freq: Status: Active Protocol: Document 02/15/18 11:30 [facility] (Rec: 02/15/18 15:48 [facility] [email or web address]) Physical Therapy Plan Frequency and Duration Frequency of Treatment 2x/Week Duration of Treatment 2 months Plan of Care Start Date 01/13/18 Plan of Care End Date 03/15/18 Therapeutic Interventions Therapeutic Interventions Aquatic Therapy Balance Training Gait Training Manual Therapy Self-Care/Home Management Soft Tissue Mobilization Taping Therapeutic Exercises Next Visit Focus/Plan Next Note Type Treatment Note Next Visit Plan Continue aquatics and land P.T . progression, treadmill trial as able or timed walk.
--- NOTE | 2018-02-17 09:43 | PT.OTN ---
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 Joy Parks Visit Start Time 09:45 Visit Stop Time 10:30 Total Visit Minutes 45 Visit Number 10 Number of DIVE SUPERVISOR Visits 1 PT-OP-B Current Condition Start: 01/13/18 07:25 Freq: Status: Active Protocol: Document 02/16/18 09:45 [facility] (Rec: 02/17/18 09:43 [facility] [email or web address]) Current Condition History of Current Condition Current Complaints c/o frequent bladder urgency day and night History of Current Condition bladder urgency symptoms began initially 5 years ago at 6 months s/p bladder cancer and removal of the bladder when the urostomy was performed. These symptoms were brought to his doctors attention but went away on their own. Now in the last 6 months these symptoms have returned. Carlos describes these symptoms as if she has a urge to void. They wake him up numerous times per night and occur frequently throughout the day. He reports feeling symptoms on the right side of his pelvis and urges last 10- 30 seconds at a time. Carlos also reports these symptoms started out as a tingling sensation but have greadually increased. He notes that they seem to have increased with his increase in exercise and weight loss. Future Testing and Treatments Planned Carlos is scheduled for a MRI and blood work on 03/02/18 PT-OP-C Subjective Start: 01/13/18 07:25 Freq: Status: Active Protocol: Document 02/15/18 11:30 [facility] (Rec: 02/15/18 15:48 [facility] [email or web address]) OP-PT Subjective Patient Comments Patient Comments Pt with no new complaints. Patient Reported Progress Improving PT-OP-G Mobility & Gait Start: 01/13/18 07:25 Freq: Status: Active Protocol: Document 01/13/18 14:58 [facility] (Rec: 01/13/18 15:29 [facility] [email or web address]) OP Gait Assessment Comments Gait Comments Dec overall push off with inc lat lean. PT-OP-J Posture/Palpation/Skin Start: 01/13/18 07:25 Freq: Status: Active Protocol: Document 02/16/18 09:45 [facility] (Rec: 02/17/18 09:43 [facility] [email or web address]) Palpation Assessment Location Two Palpation Location suprapubic fascia Palpation Findings Soft Tissue Tightness Palpation Details There is scar tissue noted over the suprapubic fascia on the right side in the region of bladder urgency symptoms One Palpation Location right sacral ARCENIO and S2-4 region Palpation Details right sided sacral palpation in the region of S2-4 did reproduce bladder urgency findings PT-OP-K Range of Motion Start: 01/13/18 07:25 Freq: Status: Active Protocol: Document 01/13/18 14:58 [facility] (Rec: 01/13/18 15:29 [facility] [email or web address]) Knee Goniometric Range of Motion Knee Measured in Degrees Right Patient Position Supine Flexion Active (degrees) 110 Extension Active (degrees) 2 Left Patient Position Supine Flexion Active (degrees) 115 Extension Active (degrees) 2 PT-OP-M Strength Start: 01/13/18 07:25 Freq: Status: Active Protocol: Document 01/13/18 14:58 [facility] (Rec: 01/13/18 15:29 [facility] [email or web address]) Hip Strength Hip Manual Muscle Testing Right Flexion (L2) 5 Normal External Rotation 4 Good Internal Rotation 4 Good Left Flexion (L2) 5 Normal External Rotation 4- Good- Internal Rotation 4 Good Knee Strength Knee Manual Muscle Testing Right Flexion (S2) 4+ Good+ Extension (L3) 4+ Good+ Left Flexion (S2) 4 Good Extension (L3) 4+ Good+ Ankle/Foot Strength Ankle and Foot Manual Muscle Testing Right Dorsiflexion (L4) 5 Normal Plantarflexion (S1) 4+ Good+ Left Dorsiflexion (L4) 5 Normal Plantarflexion (S1) 4+ Good+ Comments seated testing PT-OP-Q Treatments Start: 01/13/18 07:25 Freq: Status: Active Protocol: Document 02/16/18 09:45 [facility] (Rec: 02/17/18 09:43 [facility] [email or web address]) Therapeutic Exercises Other Exercises 2 Other Exercise Name quadraped pelvic tilts for sacral mobility 1 Other Exercise Name seated and standing pelvic tilts Comments Carlos educated on working on sacral mobility when urges appear Manual Therapy Treatment Joint Mobilizations 1 Joint sacral nutation/counter nutation Comments assessing S1 S2 nerve roots for any reproduction of bladder urgency symptoms Self-Care/Home Management Treatment Education Patient Education Home Exercise Program Caregiver Education education on urge symptoms and possible scar tissue contributing to symptoms PT-OP-S Aquatic Treatment Start: 01/15/18 15:53 Freq: Status: Active Protocol: Document 02/15/18 11:30 [facility] (Rec: 02/15/18 15:48 [facility] [email or web address]) Aquatics Treatment Pool Entry/Exit Pool Entry/Exit Method Stairs Assistance Independent Upper Extremity Exercises 1 Details plank Body Position Standing Water Level Chest Level Equipment long barbell Reps/Duration 10 Comments emphasis on core stabilization Spinal Exercises 2 Details Deep water stabilization Water Level [place] Equipment Large barbells Comments including single and double arm pull downs 1 Details supine crunch Equipment Large Noodle Reps/Duration 30 Comments including obliques [place] Activities [place] Activities Bicycle Bicycle Backwards [place] Running Hip Abduction/Adduction Duration 25 Comments Small resistance fins, 5 rounds of PT-OP-T Assessment and Plan Start: 01/13/18 07:25 Freq: Status: Active Protocol: Document 02/16/18 09:45 [facility] (Rec: 02/17/18 09:43 [facility] [email or web address]) Physical Therapy Assessment Assessment Summary Assessment I was able to reproduce bladder symptoms with plapation at the S2-4 region on the right as well as with sacral mobilizations. I need to look into this further as I am not sure if it was coincidence that Carlos experienced his symptoms of a bladder spasm with palpation or if it actually came from the palpation. There is scar tissue noted in the region of the right suprapubic fascia where he notes that his symptoms come from. Carlos is scheduled for a MRI 03/02/18 and I would like to get these results before we start doing any MFR and scar tissue mobilization. If he is clear then I will work on releasing scar tissue as well as sacral mobilizations and see if this helps reduce his phantom urgency symptoms. Physical Therapy Plan Frequency and Duration Frequency of Treatment 2x/Week Duration of Treatment 2 months Plan of Care Start Date 01/13/18 Plan of Care End Date 03/15/18 Therapeutic Interventions Therapeutic Interventions Aquatic Therapy Balance Training Gait Training Manual Therapy Self-Care/Home Management Soft Tissue Mobilization Taping Therapeutic Exercises Next Visit Focus/Plan Next Note Type Treatment Note Next Visit Plan continue with treatment for the lumbar spine and begin scar tissue work in the suprapubic region following MRI results of the region.
--- NOTE | 2018-02-21 14:41 | PT.OTN ---
Current Diagnoses Morbid (severe) obesity due to excess calories (02/18/18) Pain in left knee (02/18/18) Physical Therapy Treatment Note PT-OP-A Visit Information Start: 01/13/18 07:25 Freq: Status: Active Protocol: Document 02/18/18 09:45 SAK (Rec: 02/18/18 10:30 SAK [id number]) Out-Patient Physical Therapy Visit Information Visit Information Visit Type Progress Note Visit Start Time 09:45 Visit Stop Time 10:30 Total Visit Minutes 45 Visit Number 11 Number of CHIEF OF STAFF Visits 0 PT-OP-B Current Condition Start: 01/13/18 07:25 Freq: Status: Active Protocol: Document 02/16/18 09:45 AMH (Rec: 02/17/18 09:43 AMH [email or web address]) Current Condition History of Current Condition Current Complaints c/o frequent bladder urgency day and night History of Current Condition bladder urgency symptoms began initially 5 years ago at 6 months s/p bladder cancer and removal of the bladder when the urostomy was performed. These symptoms were brought to his doctors attention but went away on their own. Now in the last 6 months these symptoms have returned. Carlos describes these symptoms as if she has a urge to void. They wake him up numerous times per night and occur frequently throughout the day. He reports feeling symptoms on the right side of his pelvis and urges last 10- 30 seconds at a time. Carlos also reports these symptoms started out as a tingling sensation but have greadually increased. He notes that they seem to have increased with his increase in exercise and weight loss. Future Testing and Treatments Planned Carlos is scheduled for a MRI and blood work on 03/02/18 PT-OP-C Subjective Start: 01/13/18 07:25 Freq: Status: Active Protocol: Document 02/15/18 11:30 CLB (Rec: 02/15/18 15:48 CLB [email or web address]) OP-PT Subjective Patient Comments Patient Comments Pt with no new complaints. Patient Reported Progress Improving PT-OP-G Mobility & Gait Start: 01/13/18 07:25 Freq: Status: Active Protocol: Document 01/13/18 14:58 [facility] (Rec: 01/13/18 15:29 [facility] [email or web address]) OP Gait Assessment Comments Gait Comments Dec overall push off with inc lat lean. PT-OP-J Posture/Palpation/Skin Start: 01/13/18 07:25 Freq: Status: Active Protocol: Document 02/16/18 09:45 AMH (Rec: 02/17/18 09:43 AMH [email or web address]) Palpation Assessment Location Two Palpation Location suprapubic fascia Palpation Findings Soft Tissue Tightness Palpation Details There is scar tissue noted over the suprapubic fascia on the right side in the region of bladder urgency symptoms One Palpation Location right sacral ARCENIO and S2-4 region Palpation Details right sided sacral palpation in the region of S2-4 did reproduce bladder urgency findings PT-OP-K Range of Motion Start: 01/13/18 07:25 Freq: Status: Active Protocol: Document 01/13/18 14:58 [facility] (Rec: 01/13/18 15:29 [facility] [email or web address]) Knee Goniometric Range of Motion Knee Measured in Degrees Right Patient Position Supine Flexion Active (degrees) 110 Extension Active (degrees) 2 Left Patient Position Supine Flexion Active (degrees) 115 Extension Active (degrees) 2 PT-OP-M Strength Start: 01/13/18 07:25 Freq: Status: Active Protocol: Document 01/13/18 14:58 [facility] (Rec: 01/13/18 15:29 [facility] [email or web address]) Hip Strength Hip Manual Muscle Testing Right Flexion (L2) 5 Normal External Rotation 4 Good Internal Rotation 4 Good Left Flexion (L2) 5 Normal External Rotation 4- Good- Internal Rotation 4 Good Knee Strength Knee Manual Muscle Testing Right Flexion (S2) 4+ Good+ Extension (L3) 4+ Good+ Left Flexion (S2) 4 Good Extension (L3) 4+ Good+ Ankle/Foot Strength Ankle and Foot Manual Muscle Testing Right Dorsiflexion (L4) 5 Normal Plantarflexion (S1) 4+ Good+ Left Dorsiflexion (L4) 5 Normal Plantarflexion (S1) 4+ Good+ Comments seated testing PT-OP-Q Treatments Start: 01/13/18 07:25 Freq: Status: Active Protocol: Document 02/18/18 09:45 SAK (Rec: 02/18/18 10:30 SAK [id number]) Cardio Equipment Recumbent Stepper (Sci-Fit) Duration (Minutes) 10 Resistance 4 Gym Equipment Cable Column (Body Solid) Rows Resistance x 4-5 pltes Reps/Time x 15 reps Lat Pull Down Details wide and close asbestos surveyor Resistance 4-5 plates Reps/Time x 15 reps Shuttle Recovery Bilateral Squats Details 90 deg knee and hip angle Resistance 4-6 cords Shuttle Recovery Platform Stable Reps/Time x 15 reps x 3 sets Therapeutic Exercises Sitting Exercises 2 Sitting Exercise Name seated crunch Reps/Minutes 10x 1 Sitting Exercise Name seated hamstring curl Side bilateral Resistance 50 Reps/Minutes 2 x 10 Comments unil with 30# Standing Exercises 3 Standing Exercise Name sidestepping with yellow theraband 2 Standing Exercise Name HC stretch Equipment Used AILYN 1 Standing Exercise Name Semi steady squat: DB shoulder press,lateral raises, front raises Resistance 5 lbs DB Reps/Minutes 15 reps Comments Cues with form Self-Care/Home Management Treatment Education Other Education Target heart rate monitoring with practice PT-OP-S Aquatic Treatment Start: 01/15/18 15:53 Freq: Status: Active Protocol: Document 02/15/18 11:30 CLB (Rec: 02/15/18 15:48 CLB [email or web address]) Aquatics Treatment Pool Entry/Exit Pool Entry/Exit Method Stairs Assistance Independent Upper Extremity Exercises 1 Details plank Body Position Standing Water Level Chest Level Equipment long barbell Reps/Duration 10 Comments emphasis on core stabilization Spinal Exercises 2 Details Deep water stabilization Water Level [place] Equipment Large barbells Comments including single and double arm pull downs 1 Details supine crunch Equipment Large Noodle Reps/Duration 30 Comments including obliques [place] Activities [place] Activities Bicycle Bicycle Backwards Cross [place] Running Hip Abduction/Adduction Duration 25 Comments Small resistance fins, 5 rounds of 30/30 PT-OP-T Assessment and Plan Start: 01/13/18 07:25 Freq: Status: Active Protocol: Document 02/18/18 09:45 SAK (Rec: 02/21/18 14:41 SAK [id number]) Physical Therapy Assessment Goals Three Impairment Strength Manager Resort Goal (LTG) 5/5 LE strength to allow pt to inc walking distance to 1 mile. (goal progress) LTG Duration 6 wks Two Impairment up/down from ground Manager [place] Goal (LTG) Pt will be able to get up/down from ground independently & safely. (goal progress) LTG Duration 6 wks One Impairment strength Short Term Goal (STG) Indep with aquatic HEP (achieved) Mcfp Goal (LTG) Indep with gym program (goal progress) LTG Duration 6 wks Assessment Summary Assessment Fatigued but no pain with ther ex Physical Therapy Plan Frequency and Duration Frequency of Treatment 2x/Week Duration of Treatment 6 wks Plan of Care Start Date 02/18/18 Plan of Care End Date 04/01/18 Therapeutic Interventions Therapeutic Interventions Aquatic Therapy Balance Training Gait Training Manual Therapy Self-Care/Home Management Soft Tissue Mobilization Taping Therapeutic Exercises Next Visit Focus/Plan Next Note Type Treatment Note Next Visit Plan No further aquatic PT as patient is independent. Will focus on land-based PT with ther ex progression to help patient meet his therapy goals .
--- NOTE | 2018-02-23 17:39 | PT.OTN ---
Current Diagnoses Morbid (severe) obesity due to excess calories (02/23/18) Pain in left knee (02/23/18) Physical Therapy Treatment Note PT-OP-A Visit Information Start: 01/13/18 07:25 Freq: Status: Active Protocol: Document 02/18/18 09:45 SAK (Rec: 02/18/18 10:30 SAK [id number]) Out-Patient Physical Therapy Visit Information Visit Information Visit Type Progress Note Visit Start Time 09:45 Visit Stop Time 10:30 Total Visit Minutes 45 Visit Number 11 Number of ROADSIDE MECHANIC Visits 0 PT-OP-B Current Condition Start: 01/13/18 07:25 Freq: Status: Active Protocol: Document 02/16/18 09:45 [facility]H (Rec: 02/17/18 09:43 AMH [email or web address]) Current Condition History of Current Condition Current Complaints c/o frequent bladder urgency day and night History of Current Condition bladder urgency symptoms began initially 5 years ago at 6 months s/p bladder cancer and removal of the bladder when the urostomy was performed. These symptoms were brought to his doctors attention but went away on their own. Now in the last 6 months these symptoms have returned. Carlos describes these symptoms as if she has a urge to void. They wake him up numerous times per night and occur frequently throughout the day. He reports feeling symptoms on the right side of his pelvis and urges last 10- 30 seconds at a time. Carlos also reports these symptoms started out as a tingling sensation but have greadually increased. He notes that they seem to have increased with his increase in exercise and weight loss. Future Testing and Treatments Planned Carlos is scheduled for a MRI and blood work on 03/02/18 PT-OP-C Subjective Start: 01/13/18 07:25 Freq: Status: Active Protocol: Document 02/23/18 09:07 SAK (Rec: 02/23/18 09:52 SAK [id number]) OP-PT Subjective Patient Comments Patient Comments Walked 1 1/2 miles over weekend and paid for it PT-OP-G Mobility & Gait Start: 01/13/18 07:25 Freq: Status: Active Protocol: Document 01/13/18 14:58 LR (Rec: 01/13/18 15:29 LR [email or web address]) OP Gait Assessment Comments Gait Comments Dec overall push off with inc lat lean. PT-OP-J Posture/Palpation/Skin Start: 01/13/18 07:25 Freq: Status: Active Protocol: Document 02/16/18 09:45 [facility]H (Rec: 02/17/18 09:43 AMH [email or web address]) Palpation Assessment Location Two Palpation Location suprapubic fascia Palpation Findings Soft Tissue Tightness Palpation Details There is scar tissue noted over the suprapubic fascia on the right side in the region of bladder urgency symptoms One Palpation Location right sacral ARCENIO and S2-4 region Palpation Details right sided sacral palpation in the region of S2-4 did reproduce bladder urgency findings PT-OP-K Range of Motion Start: 01/13/18 07:25 Freq: Status: Active Protocol: Document 01/13/18 14:58 [facility] (Rec: 01/13/18 15:29 [facility] [email or web address]) Knee Goniometric Range of Motion Knee Measured in Degrees Right Patient Position Supine Flexion Active (degrees) 110 Extension Active (degrees) 2 Left Patient Position Supine Flexion Active (degrees) 115 Extension Active (degrees) 2 PT-OP-M Strength Start: 01/13/18 07:25 Freq: Status: Active Protocol: Document 01/13/18 14:58 [facility] (Rec: 01/13/18 15:29 [facility] [email or web address]) Hip Strength Hip Manual Muscle Testing Right Flexion (L2) 5 Normal External Rotation 4 Good Internal Rotation 4 Good Left Flexion (L2) 5 Normal External Rotation 4- Good- Internal Rotation 4 Good Knee Strength Knee Manual Muscle Testing Right Flexion (S2) 4+ Good+ Extension (L3) 4+ Good+ Left Flexion (S2) 4 Good Extension (L3) 4+ Good+ Ankle/Foot Strength Ankle and Foot Manual Muscle Testing Right Dorsiflexion (L4) 5 Normal Plantarflexion (S1) 4+ Good+ Left Dorsiflexion (L4) 5 Normal Plantarflexion (S1) 4+ Good+ Comments seated testing PT-OP-Q Treatments Start: 01/13/18 07:25 Freq: Status: Active Protocol: Document 02/23/18 09:07 SAK (Rec: 02/23/18 09:52 SAK [id number]) Cardio Equipment Recumbent Stepper (Sci-Fit) Duration (Minutes) 10 Resistance 2-4 Gym Equipment Cable Column (Body Solid) Other- 1 Details biceps free weights Resistance 7# bernadette Reps/Time 15 reps Triceps Resistance 3 plates Reps/Time 15 reps Rows Resistance x 4-5 pltes Reps/Time x 15 reps Lat Pull Down Details wide and close c d still operator Resistance 4-5 plates Reps/Time x 15 reps Shuttle Recovery Unilateral Squats Resistance 67 Reps/Time 15 reps Bilateral Squats Details 90 deg knee and hip angle Resistance 4-6 cords Shuttle Recovery Platform Stable Reps/Time x 15 reps x 3 sets Therapeutic Exercises Standing Exercises 5 Standing Exercise Name quad and hamstring stretches Reps/Minutes 2 x 30 3 Standing Exercise Name monster steps all directions with red theraband, standing hip ex 3 way Reps/Minutes 10 2 Standing Exercise Name HC stretch Equipment Used AILYN Self-Care/Home Management Treatment Education Other Education Target heart rate monitoring with practice; review. Instruction in lower HR at rest and with ex in pool. PT-OP-S Aquatic Treatment Start: 01/15/18 15:53 Freq: Status: Active Protocol: Document 02/15/18 11:30 CLB (Rec: 02/15/18 15:48 CLB [email or web address]) Aquatics Treatment Pool Entry/Exit Pool Entry/Exit Method Stairs Assistance Independent Upper Extremity Exercises 1 Details plank Body Position Standing Water Level Chest Level Equipment long barbell Reps/Duration 10 Comments emphasis on core stabilization Spinal Exercises 2 Details Deep water stabilization Water Level [place] Equipment Large barbells Comments including single and double arm pull downs 1 Details supine crunch Equipment Large Noodle Reps/Duration 30 Comments including obliques [place] Activities [place] Activities Bicycle Bicycle Backwards [place] Running Hip Abduction/Adduction Duration 25 Comments Small resistance fins, 5 rounds of 30/30 PT-OP-T Assessment and Plan Start: 01/13/18 07:25 Freq: Status: Active Protocol: Document 02/23/18 09:07 SAK (Rec: 02/23/18 17:39 SAK [id number]) Physical Therapy Assessment Goals Three Impairment Strength Crew Clerk Goal (LTG) 5/5 LE strength to allow pt to inc walking distance to 1 mile. (goal progress) LTG Duration 6 wks Two Impairment up/down from ground Crew Clerk Goal (LTG) Pt will be able to get up/down from ground independently & safely. (goal progress) LTG Duration 6 wks One Impairment strength Short Term Goal (STG) Indep with aquatic HEP (achieved) Shelter Goal (LTG) Indep with gym program (goal progress) LTG Duration 6 wks Assessment Summary Assessment Good tolerance for progression of ex with good focus and response to cues for form with ex. Physical Therapy Plan Frequency and Duration Frequency of Treatment 2x/Week Duration of Treatment 6 wks Plan of Care Start Date 02/18/18 Plan of Care End Date 04/01/18 Therapeutic Interventions Therapeutic Interventions Aquatic Therapy Balance Training Gait Training Manual Therapy Self-Care/Home Management Soft Tissue Mobilization Taping Therapeutic Exercises Next Visit Focus/Plan Next Note Type Treatment Note Next Visit Plan Try lunge walking, core ex including possible modified plank.
--- NOTE | 2018-03-02 09:55 | PT.OTN ---
Current Diagnoses Morbid (severe) obesity due to excess calories (03/02/18) Pain in left knee (03/02/18) Physical Therapy Treatment Note PT-OP-A Visit Information Start: 01/13/18 07:25 Freq: Status: Active Protocol: Document 03/02/18 09:09 [facility] (Rec: 03/02/18 09:54 [facility] [id number]) Out-Patient Physical Therapy Visit Information Visit Information Visit Type Treatment Note Visit Start Time 09:00 Visit Stop Time 09:45 Total Visit Minutes 45 Visit Number 13 Number of MISSILE INSPECTOR PREFLIGHT Visits 0 PT-OP-B Current Condition Start: 01/13/18 07:25 Freq: Status: Active Protocol: Document 02/16/18 09:45 [facility] (Rec: 02/17/18 09:43 [facility] [email or web address]) Current Condition History of Current Condition Current Complaints c/o frequent bladder urgency day and night History of Current Condition bladder urgency symptoms began initially 5 years ago at 6 months s/p bladder cancer and removal of the bladder when the urostomy was performed. These symptoms were brought to his doctors attention but went away on their own. Now in the last 6 months these symptoms have returned. Carlos describes these symptoms as if she has a urge to void. They wake him up numerous times per night and occur frequently throughout the day. He reports feeling symptoms on the right side of his pelvis and urges last 10- 30 seconds at a time. Carlos also reports these symptoms started out as a tingling sensation but have greadually increased. He notes that they seem to have increased with his increase in exercise and weight loss. Future Testing and Treatments Planned Carlos is scheduled for a MRI and blood work on 03/02/18 PT-OP-C Subjective Start: 01/13/18 07:25 Freq: Status: Active Protocol: Document 03/02/18 09:09 [facility] (Rec: 03/02/18 09:54 [facility] [id number]) OP-PT Subjective Patient Comments Patient Comments Pt reports he has been working on pool and land workouts. PT-OP-G Mobility & Gait Start: 01/13/18 07:25 Freq: Status: Active Protocol: Document 01/13/18 14:58 [facility] (Rec: 01/13/18 15:29 [facility] [id number]) OP Gait Assessment Comments Gait Comments Dec overall push off with inc lat lean. PT-OP-J Posture/Palpation/Skin Start: 01/13/18 07:25 Freq: Status: Active Protocol: Document 02/16/18 09:45 [facility] (Rec: 02/17/18 09:43 [facility] [email or web address]) Palpation Assessment Location Two Palpation Location suprapubic fascia Palpation Findings Soft Tissue Tightness Palpation Details There is scar tissue noted over the suprapubic fascia on the right side in the region of bladder urgency symptoms One Palpation Location right sacral ARCENIO and S2-4 region Palpation Details right sided sacral palpation in the region of S2-4 did reproduce bladder urgency findings PT-OP-K Range of Motion Start: 01/13/18 07:25 Freq: Status: Active Protocol: Document 01/13/18 14:58 [facility] (Rec: 01/13/18 15:29 [facility] [id number]) Knee Goniometric Range of Motion Knee Measured in Degrees Right Patient Position Supine Flexion Active (degrees) 110 Extension Active (degrees) 2 Left Patient Position Supine Flexion Active (degrees) 115 Extension Active (degrees) 2 PT-OP-M Strength Start: 01/13/18 07:25 Freq: Status: Active Protocol: Document 01/13/18 14:58 [facility] (Rec: 01/13/18 15:29 [facility] [id number]) Hip Strength Hip Manual Muscle Testing Right Flexion (L2) 5 Normal External Rotation 4 Good Internal Rotation 4 Good Left Flexion (L2) 5 Normal External Rotation 4- Good- Internal Rotation 4 Good Knee Strength Knee Manual Muscle Testing Right Flexion (S2) 4+ Good+ Extension (L3) 4+ Good+ Left Flexion (S2) 4 Good Extension (L3) 4+ Good+ Ankle/Foot Strength Ankle and Foot Manual Muscle Testing Right Dorsiflexion (L4) 5 Normal Plantarflexion (S1) 4+ Good+ Left Dorsiflexion (L4) 5 Normal Plantarflexion (S1) 4+ Good+ Comments seated testing PT-OP-Q Treatments Start: 01/13/18 07:25 Freq: Status: Active Protocol: Document 03/02/18 09:09 [facility] (Rec: 03/02/18 09:54 [facility] [id number]) Gym Equipment Cable Column (Body Solid) Triceps Details focus on posture Resistance 3 plates Reps/Time 15 reps Shuttle Balance 1 Details red clips Comments WBOS & NBOS fwd & side Therapeutic Exercises Standing Exercises 6 Standing Exercise Name walking lunges Reps/Minutes 3x20ft 5 Standing Exercise Name quad and hamstring stretches Reps/Minutes 2 x 30 3 Standing Exercise Name monster steps all directions with red theraband, standing hip ex 3 way Reps/Minutes 2x20ft each Other Exercises 3 Other Exercise Name pplank on forearm & knees Comments 3x30 sec Therapeutic Activity Therapeutic Activity 1 Name up and down from floor Comments rail for down; none for up PT-OP-S Aquatic Treatment Start: 01/15/18 15:53 Freq: Status: Active Protocol: Document 02/15/18 11:30 [facility] (Rec: 02/15/18 15:48 [facility] [email or web address]) Aquatics Treatment Pool Entry/Exit Pool Entry/Exit Method Stairs Assistance Independent Upper Extremity Exercises 1 Details plank Body Position Standing Water Level Chest Level Equipment long barbell Reps/Duration 10 Comments emphasis on core stabilization Spinal Exercises 2 Details Deep water stabilization Water Level [place] Equipment Large barbells Comments including single and double arm pull downs 1 Details supine crunch Equipment Large Noodle Reps/Duration 30 Comments including obliques [place] Activities [place] Activities Bicycle Bicycle Backwards [place] Running Hip Abduction/Adduction Duration 25 Comments Small resistance fins, 5 rounds of 30/30 PT-OP-T Assessment and Plan Start: 01/13/18 07:25 Freq: Status: Active Protocol: Document 03/02/18 09:09 [facility] (Rec: 03/02/18 09:54 [facility] [id number]) Physical Therapy Assessment Goals Three Impairment Strength Penitentiary Goal (LTG) 5/5 LE strength to allow pt to inc walking distance to 1 mile. (goal progress) LTG Duration 6 wks Two Impairment up/down from ground Hair Sample Matcher Goal (LTG) Pt will be able to get up/down from ground independently & safely. (goal progress) LTG Duration 6 wks One Impairment strength Short Term Goal (STG) Indep with aquatic HEP (achieved) Penitentiary Goal (LTG) Indep with gym program (goal progress) LTG Duration 6 wks Assessment Summary Assessment Pt did great with new exercises with cueing throughout for form. He did well with challenge of balance board. Physical Therapy Plan Frequency and Duration Frequency of Treatment 2x/Week Duration of Treatment 6 wks Plan of Care Start Date 02/18/18 Plan of Care End Date 04/01/18 Next Visit Focus/Plan Next Note Type Treatment Note Next Visit Plan Advance balance
--- NOTE | 2018-03-02 10:46 | DI.RAD.S_ITS ---
PROCEDURE: XR CHEST 2V INDICATIONS: Bladder cancer surveillance TECHNIQUE: 2 views of the chest were acquired. COMPARISON: [facility], , CHEST 2 VIEW, 03/03/2017, 10:14. FINDINGS: Surgical changes and devices: None. Lungs and pleura: No pleural effusions or pneumothorax. Lungs are clear. Mediastinum: Mediastinal contours are normal. Heart size is normal. Bones and chest wall: No suspicious bony abnormalities. Soft tissues appear unremarkable. IMPRESSION: No acute cardiopulmonary abnormality or evidence of metastatic disease. Dictated by: Luis Reeder M.D. on 03/02/2018 at 11:33 Approved by: Luis Reeder M.D. on 03/02/2018 at 11:34
--- NOTE | 2018-03-09 09:53 | PT.OTN ---
Current Diagnoses Morbid (severe) obesity due to excess calories (03/09/18) Pain in left knee (03/09/18) Physical Therapy Treatment Note PT-OP-A Visit Information Start: 01/13/18 07:25 Freq: Status: Active Protocol: Document 03/09/18 09:02 [facility] (Rec: 03/09/18 09:53 [facility] [id number]) Out-Patient Physical Therapy Visit Information Visit Information Visit Type Treatment Note Visit Start Time 09:00 Visit Stop Time 09:45 Total Visit Minutes 45 Visit Number 14 Number of APPRENTICE PHOTOGRAPHER Visits 0 PT-OP-B Current Condition Start: 01/13/18 07:25 Freq: Status: Active Protocol: Document 02/16/18 09:45 [facility] (Rec: 02/17/18 09:43 [facility] [email or web address]) Current Condition History of Current Condition Current Complaints c/o frequent bladder urgency day and night History of Current Condition bladder urgency symptoms began initially 5 years ago at 6 months s/p bladder cancer and removal of the bladder when the urostomy was performed. These symptoms were brought to his doctors attention but went away on their own. Now in the last 6 months these symptoms have returned. Carlos describes these symptoms as if she has a urge to void. They wake him up numerous times per night and occur frequently throughout the day. He reports feeling symptoms on the right side of his pelvis and urges last 10- 30 seconds at a time. Carlos also reports these symptoms started out as a tingling sensation but have greadually increased. He notes that they seem to have increased with his increase in exercise and weight loss. Future Testing and Treatments Planned Carlos is scheduled for a MRI and blood work on 03/02/18 PT-OP-C Subjective Start: 01/13/18 07:25 Freq: Status: Active Protocol: Document 03/09/18 09:02 [facility] (Rec: 03/09/18 09:53 [facility] [id number]) OP-PT Subjective Patient Comments Patient Comments Last week, he had a lot of tests and they found a bacterial test and is on antibiotics. Reports he plans to do a couple more land sessions PT-OP-G Mobility & Gait Start: 01/13/18 07:25 Freq: Status: Active Protocol: Document 01/13/18 14:58 [facility] (Rec: 01/13/18 15:29 [facility] [email or web address]) OP Gait Assessment Comments Gait Comments Dec overall push off with inc lat lean. PT-OP-J Posture/Palpation/Skin Start: 01/13/18 07:25 Freq: Status: Active Protocol: Document 02/16/18 09:45 [facility] (Rec: 02/17/18 09:43 [facility] [email or web address]) Palpation Assessment Location Two Palpation Location suprapubic fascia Palpation Findings Soft Tissue Tightness Palpation Details There is scar tissue noted over the suprapubic fascia on the right side in the region of bladder urgency symptoms One Palpation Location right sacral ARCENIO and S2-4 region Palpation Details right sided sacral palpation in the region of S2-4 did reproduce bladder urgency findings PT-OP-K Range of Motion Start: 01/13/18 07:25 Freq: Status: Active Protocol: Document 01/13/18 14:58 [facility] (Rec: 01/13/18 15:29 [facility] [email or web address]) Knee Goniometric Range of Motion Knee Measured in Degrees Right Patient Position Supine Flexion Active (degrees) 110 Extension Active (degrees) 2 Left Patient Position Supine Flexion Active (degrees) 115 Extension Active (degrees) 2 PT-OP-M Strength Start: 01/13/18 07:25 Freq: Status: Active Protocol: Document 01/13/18 14:58 [facility] (Rec: 01/13/18 15:29 [facility] [email or web address]) Hip Strength Hip Manual Muscle Testing Right Flexion (L2) 5 Normal External Rotation 4 Good Internal Rotation 4 Good Left Flexion (L2) 5 Normal External Rotation 4- Good- Internal Rotation 4 Good Knee Strength Knee Manual Muscle Testing Right Flexion (S2) 4+ Good+ Extension (L3) 4+ Good+ Left Flexion (S2) 4 Good Extension (L3) 4+ Good+ Ankle/Foot Strength Ankle and Foot Manual Muscle Testing Right Dorsiflexion (L4) 5 Normal Plantarflexion (S1) 4+ Good+ Left Dorsiflexion (L4) 5 Normal Plantarflexion (S1) 4+ Good+ Comments seated testing PT-OP-Q Treatments Start: 01/13/18 07:25 Freq: Status: Active Protocol: Document 03/09/18 09:02 [facility] (Rec: 03/09/18 09:53 [facility] [id number]) Cardio Equipment Recumbent Stepper (Sci-Fit) Duration (Minutes) 10 Resistance 2-4 Gym Equipment Shuttle Balance 1 Details red clips Comments WBOS & NBOS fwd & side; fwd staggered stance Therapeutic Exercises Supine Exercises 1 Supine Exercise Name bridge w/ball under ankles Reps/Minutes 10 sec x10 reps Standing Exercises 6 Standing Exercise Name walking lunges Reps/Minutes 3x20ft 3 Standing Exercise Name monster steps all directions with red theraband, standing hip ex 3 way Reps/Minutes 2x20ft each 2 Standing Exercise Name HC stretch Equipment Used AILYN Other Exercises 4 Other Exercise Name Sideplank forearm & knee Reps/Minutes 2x20 B 3 Other Exercise Name plank on forearm & knees Comments 3x30 sec PT-OP-S Aquatic Treatment Start: 01/15/18 15:53 Freq: Status: Active Protocol: Document 02/15/18 11:30 [facility] (Rec: 02/15/18 15:48 [facility] [email or web address]) Aquatics Treatment Pool Entry/Exit Pool Entry/Exit Method Stairs Assistance Independent Upper Extremity Exercises 1 Details plank Body Position Standing Water Level Chest Level Equipment long barbell Reps/Duration 10 Comments emphasis on core stabilization Spinal Exercises 2 Details Deep water stabilization Water Level [place] Equipment Large barbells Comments including single and double arm pull downs 1 Details supine crunch Equipment Large Noodle Reps/Duration 30 Comments including obliques [place] Activities [place] Activities Bicycle Bicycle Backwards [place] Running Hip Abduction/Adduction Duration 25 Comments Small resistance fins, 5 rounds of 30/30 PT-OP-T Assessment and Plan Start: 01/13/18 07:25 Freq: Status: Active Protocol: Document 03/09/18 09:02 [facility] (Rec: 03/09/18 09:53 [facility] [id number]) Physical Therapy Assessment Goals Three Impairment Strength Sn[place] Goal (LTG) 5/5 LE strength to allow pt to inc walking distance to 1 mile. (goal progress) LTG Duration 6 wks Two Impairment up/down from ground [place] Goal (LTG) Pt will be able to get up/down from ground independently & safely. (goal progress) LTG Duration 6 wks One Impairment strength Short Term Goal (STG) Indep with aquatic HEP (achieved) Snf Goal (LTG) Indep with gym program (goal progress) LTG Duration 6 wks Assessment Summary Assessment Pt is improving with his overall tolerance to exercise. He did better with balance exercises. Physical Therapy Plan Frequency and Duration Frequency of Treatment 2x/Week Duration of Treatment 6 wks Plan of Care Start Date 02/18/18 Plan of Care End Date 04/01/18 Next Visit Focus/Plan Next Note Type Treatment Note Next Visit Plan Advance balance
--- NOTE | 2018-03-25 17:39 | PT.OTN ---
Current Diagnoses Morbid (severe) obesity due to excess calories (03/25/18) Pain in left knee (03/25/18) Physical Therapy Treatment Note PT-OP-A Visit Information Start: 01/13/18 07:25 Freq: Status: Active Protocol: Document 03/09/18 09:02 [facility] (Rec: 03/09/18 09:53 [facility] [id number]) Out-Patient Physical Therapy Visit Information Visit Information Visit Type Treatment Note Visit Start Time 09:00 Visit Stop Time 09:45 Total Visit Minutes 45 Visit Number 14 Number of SECURITY SUPERVISOR Visits 0 PT-OP-B Current Condition Start: 01/13/18 07:25 Freq: Status: Active Protocol: Document 02/16/18 09:45 [facility] (Rec: 02/17/18 09:43 [facility] [email or web address]) Current Condition History of Current Condition Current Complaints c/o frequent bladder urgency day and night History of Current Condition bladder urgency symptoms began initially 5 years ago at 6 months s/p bladder cancer and removal of the bladder when the urostomy was performed. These symptoms were brought to his doctors attention but went away on their own. Now in the last 6 months these symptoms have returned. Carlos describes these symptoms as if she has a urge to void. They wake him up numerous times per night and occur frequently throughout the day. He reports feeling symptoms on the right side of his pelvis and urges last 10- 30 seconds at a time. Carlos also reports these symptoms started out as a tingling sensation but have greadually increased. He notes that they seem to have increased with his increase in exercise and weight loss. Future Testing and Treatments Planned Carlos is scheduled for a MRI and blood work on 03/02/18 PT-OP-C Subjective Start: 01/13/18 07:25 Freq: Status: Active Protocol: Document 03/25/18 17:32 [facility] (Rec: 03/25/18 17:38 [facility] [email or web address]) OP-PT Subjective Patient Comments Patient Comments Carlos reports his CT scan is clear. He has questions about the report saying that sutures are seen near the cecum though. He requests me to look up CT scan PT-OP-G Mobility & Gait Start: 01/13/18 07:25 Freq: Status: Active Protocol: Document 01/13/18 14:58 [facility] (Rec: 01/13/18 15:29 [facility] [email or web address]) OP Gait Assessment Comments Gait Comments Dec overall push off with inc lat lean. PT-OP-J Posture/Palpation/Skin Start: 01/13/18 07:25 Freq: Status: Active Protocol: Document 02/16/18 09:45 [facility] (Rec: 02/17/18 09:43 [facility] [email or web address]) Palpation Assessment Location Two Palpation Location suprapubic fascia Palpation Findings Soft Tissue Tightness Palpation Details There is scar tissue noted over the suprapubic fascia on the right side in the region of bladder urgency symptoms One Palpation Location right sacral ARCENIO and S2-4 region Palpation Details right sided sacral palpation in the region of S2-4 did reproduce bladder urgency findings PT-OP-K Range of Motion Start: 01/13/18 07:25 Freq: Status: Active Protocol: Document 01/13/18 14:58 [facility] (Rec: 01/13/18 15:29 [facility] [email or web address]) Knee Goniometric Range of Motion Knee Measured in Degrees Right Patient Position Supine Flexion Active (degrees) 110 Extension Active (degrees) 2 Left Patient Position Supine Flexion Active (degrees) 115 Extension Active (degrees) 2 PT-OP-M Strength Start: 01/13/18 07:25 Freq: Status: Active Protocol: Document 01/13/18 14:58 [facility] (Rec: 01/13/18 15:29 [facility] [email or web address]) Hip Strength Hip Manual Muscle Testing Right Flexion (L2) 5 Normal External Rotation 4 Good Internal Rotation 4 Good Left Flexion (L2) 5 Normal External Rotation 4- Good- Internal Rotation 4 Good Knee Strength Knee Manual Muscle Testing Right Flexion (S2) 4+ Good+ Extension (L3) 4+ Good+ Left Flexion (S2) 4 Good Extension (L3) 4+ Good+ Ankle/Foot Strength Ankle and Foot Manual Muscle Testing Right Dorsiflexion (L4) 5 Normal Plantarflexion (S1) 4+ Good+ Left Dorsiflexion (L4) 5 Normal Plantarflexion (S1) 4+ Good+ Comments seated testing PT-OP-Q Treatments Start: 01/13/18 07:25 Freq: Status: Active Protocol: Document 03/25/18 17:32 [facility] (Rec: 03/25/18 17:38 [facility] [email or web address]) Manual Therapy Treatment Soft Tissue Mobilization 1 Body Location MFR across suprapubic fascia and region of the cecum Body Position Supine Comments good tolerance Manual Techniques 1 Type manual iliopsoas stretch Comments in migue test position PT-OP-S Aquatic Treatment Start: 01/15/18 15:53 Freq: Status: Active Protocol: Document 02/15/18 11:30 [facility] (Rec: 02/15/18 15:48 [facility] [email or web address]) Aquatics Treatment Pool Entry/Exit Pool Entry/Exit Method Stairs Assistance Independent Upper Extremity Exercises 1 Details plank Body Position Standing Water Level Chest Level Equipment long barbell Reps/Duration 10 Comments emphasis on core stabilization Spinal Exercises 2 Details Deep water stabilization Water Level [place] Equipment Large barbells Comments including single and double arm pull downs 1 Details supine crunch Equipment Large Noodle Reps/Duration 30 Comments including obliques [place] Activities [place] Activities Bicycle Bicycle Backwards [place] Running Hip Abduction/Adduction Duration 25 Comments Small resistance fins, 5 rounds of 30/30 PT-OP-T Assessment and Plan Start: 01/13/18 07:25 Freq: Status: Active Protocol: Document 03/25/18 17:32 [facility] (Rec: 03/25/18 17:38 [facility] [email or web address]) Physical Therapy Assessment Assessment Summary Assessment scar tissue present over the cecum region and suprapubic fascia. Iliopsoas also tight on the right so encouraged stretching at home Physical Therapy Plan Frequency and Duration Frequency of Treatment 2x/Week Duration of Treatment 6 wks Plan of Care Start Date 02/18/18 Plan of Care End Date 04/01/18 Therapeutic Interventions Therapeutic Interventions Aquatic Therapy Balance Training Gait Training Manual Therapy Self-Care/Home Management Soft Tissue Mobilization Taping Therapeutic Exercises Next Visit Focus/Plan Next Note Type Progress Note Next Visit Plan review objective info for progress report
--- NOTE | 2018-03-30 17:23 | PT.OTN ---
Current Diagnoses Morbid (severe) obesity due to excess calories (03/30/18) Pain in left knee (03/30/18) Physical Therapy Treatment Note PT-OP-A Visit Information Start: 01/13/18 07:25 Freq: Status: Active Protocol: Document 03/30/18 17:14 [facility] (Rec: 03/30/18 17:23 [facility] [email or web address]) Out-Patient Physical Therapy Visit Information Visit Information Visit Type Progress Note Visit Start Time 14:30 Visit Stop Time 15:15 Total Visit Minutes 45 Visit Number 15 Number of COMPUTING CONSULTANT Visits 0 PT-OP-B Current Condition Start: 01/13/18 07:25 Freq: Status: Active Protocol: Document 02/16/18 09:45 [facility] (Rec: 02/17/18 09:43 [facility] [email or web address]) Current Condition History of Current Condition Current Complaints c/o frequent bladder urgency day and night History of Current Condition bladder urgency symptoms began initially 5 years ago at 6 months s/p bladder cancer and removal of the bladder when the urostomy was performed. These symptoms were brought to his doctors attention but went away on their own. Now in the last 6 months these symptoms have returned. Carlos describes these symptoms as if she has a urge to void. They wake him up numerous times per night and occur frequently throughout the day. He reports feeling symptoms on the right side of his pelvis and urges last 10- 30 seconds at a time. Carlos also reports these symptoms started out as a tingling sensation but have greadually increased. He notes that they seem to have increased with his increase in exercise and weight loss. 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 PT-OP-J Posture/Palpation/Skin Start: 01/13/18 07:25 Freq: Status: Active Protocol: Document 03/30/18 17:14 [facility] (Rec: 03/30/18 17:23 [facility] [email or web address]) Palpation Assessment Location Two Palpation Location suprapubic fascia Palpation Findings Soft Tissue Tightness Palpation Details There is scar tissue noted over the suprapubic fascia on the right side in the region of bladder urgency symptoms One Palpation Location right sacral ARCENIO and S2-4 region Palpation Details right sided sacral palpation in the region of S2-4 did reproduce bladder urgency findings PT-OP-K Range of Motion Start: 01/13/18 07:25 Freq: Status: Active Protocol: Document 01/13/18 14:58 [facility] (Rec: 01/13/18 15:29 [facility] [email or web address]) Knee Goniometric Range of Motion Knee Measured in Degrees Right Patient Position Supine Flexion Active (degrees) 110 Extension Active (degrees) 2 Left Patient Position Supine Flexion Active (degrees) 115 Extension Active (degrees) 2 PT-OP-M Strength Start: 01/13/18 07:25 Freq: Status: Active Protocol: Document 01/13/18 14:58 [facility] (Rec: 01/13/18 15:29 [facility] [email or web address]) Hip Strength Hip Manual Muscle Testing Right Flexion (L2) 5 Normal External Rotation 4 Good Internal Rotation 4 Good Left Flexion (L2) 5 Normal External Rotation 4- Good- Internal Rotation 4 Good Knee Strength Knee Manual Muscle Testing Right Flexion (S2) 4+ Good+ Extension (L3) 4+ Good+ Left Flexion (S2) 4 Good Extension (L3) 4+ Good+ Ankle/Foot Strength Ankle and Foot Manual Muscle Testing Right Dorsiflexion (L4) 5 Normal Plantarflexion (S1) 4+ Good+ Left Dorsiflexion (L4) 5 Normal Plantarflexion (S1) 4+ Good+ Comments seated testing PT-OP-Q Treatments Start: 01/13/18 07:25 Freq: Status: Active Protocol: Document 03/30/18 17:14 [facility] (Rec: 03/30/18 17:23 [facility] [email or web address]) Manual Therapy Treatment Soft Tissue Mobilization 1 Body Location MFR across suprapubic fascia and region of the cecum Body Position Supine Comments good tolerance Manual Techniques 1 Type manual iliopsoas stretch Comments in migue test position PT-OP-R Modalities Start: 01/13/18 07:25 Freq: Status: Active Protocol: Document 03/30/18 17:14 [facility] (Rec: 03/30/18 17:23 [facility] [email or web address]) Electric Stimulation Electric Stimulation Pre-Modulated Body Location sacral nerve roots Comments trial of electrical stimulation over the sacral nerve roots bilaterally PT-OP-S Aquatic Treatment Start: 01/15/18 15:53 Freq: Status: Active Protocol: Document 02/15/18 11:30 [facility] (Rec: 02/15/18 15:48 [facility] [email or web address]) Aquatics Treatment Pool Entry/Exit Pool Entry/Exit Method Stairs Assistance Independent Upper Extremity Exercises 1 Details plank Body Position Standing Water Level Chest Level Equipment long barbell Reps/Duration 10 Comments emphasis on core stabilization Spinal Exercises 2 Details Deep water stabilization Water Level Kulm Equipment Large barbells Comments including single and double arm pull downs 1 Details supine crunch Equipment Large Noodle Reps/Duration 30 Comments including obliques Kulm Activities Kulm Activities Bicycle Bicycle Backwards [place] Running Hip Abduction/Adduction Duration 25 Comments Small resistance fins, 5 rounds of 30/30 PT-OP-T Assessment and Plan Start: 01/13/18 07:25 Freq: Status: Active Protocol: Document 03/30/18 17:14 [facility] (Rec: 03/30/18 17:23 [facility] [email or web address]) Physical Therapy Assessment Assessment Summary Assessment 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 This is only his second visit for this treatment and there has not been any change yet. I did do a trial of stimuation over the sacral nerve roots to see if this can help at all. He may be a candidate for a home TENS unit Physical Therapy Plan Frequency and Duration Frequency of Treatment 2x/Week Duration of Treatment 6 wks Plan of Care Start Date 03/30/18 Plan of Care End Date 05/11/18 Therapeutic Interventions Therapeutic Interventions Aquatic Therapy Balance Training Gait Training Manual Therapy Self-Care/Home Management Soft Tissue Mobilization Taping Therapeutic Exercises Next Visit Focus/Plan Next Note Type Treatment Note Next Visit Plan continue working on scar tissue reduction to see if we can decrease nerve symptoms
--- NOTE | 2018-04-06 17:32 | PT.OTN ---
Current Diagnoses Morbid (severe) obesity due to excess calories (04/06/18) Pain in left knee (04/06/18) Physical Therapy Treatment Note PT-OP-A Visit Information Start: 01/13/18 07:25 Freq: Status: Active Protocol: Document 04/06/18 17:28 [facility] (Rec: 04/06/18 17:32 [facility] [email or web address]) Out-Patient Physical Therapy Visit Information Visit Information Visit Type Treatment Note Visit Start Time 14:30 Visit Stop Time 15:15 Total Visit Minutes 45 Visit Number 16 Number of PROVIDER RELATIONS MANAGER Visits 0 PT-OP-B Current Condition Start: 01/13/18 07:25 Freq: Status: Active Protocol: Document 02/16/18 09:45 [facility] (Rec: 02/17/18 09:43 [facility] [email or web address]) Current Condition History of Current Condition Current Complaints c/o frequent bladder urgency day and night History of Current Condition bladder urgency symptoms began initially 5 years ago at 6 months s/p bladder cancer and removal of the bladder when the urostomy was performed. These symptoms were brought to his doctors attention but went away on their own. Now in the last 6 months these symptoms have returned. Carlos describes these symptoms as if she has a urge to void. They wake him up numerous times per night and occur frequently throughout the day. He reports feeling symptoms on the right side of his pelvis and urges last 10- 30 seconds at a time. Carlos also reports these symptoms started out as a tingling sensation but have greadually increased. He notes that they seem to have increased with his increase in exercise and weight loss. Future Testing and Treatments Planned Carlos is scheduled for a MRI and blood work on 03/02/18 PT-OP-C Subjective Start: 01/13/18 07:25 Freq: Status: Active Protocol: Document 04/06/18 17:28 [facility] (Rec: 04/06/18 17:32 [facility] [email or web address]) OP-PT Subjective Patient Comments Patient Comments Carlos states he feels treatment may be helping some. He has had a night or two with decreased symptoms PT-OP-G Mobility & Gait Start: 01/13/18 07:25 Freq: Status: Active Protocol: Document 01/13/18 14:58 [facility] (Rec: 01/13/18 15:29 [facility] [email or web address]) OP Gait Assessment Comments Gait Comments Dec overall push off with inc lat lean. PT-OP-J Posture/Palpation/Skin Start: 01/13/18 07:25 Freq: Status: Active Protocol: Document 03/30/18 17:14 [facility] (Rec: 03/30/18 17:23 [facility] [email or web address]) Palpation Assessment Location Two Palpation Location suprapubic fascia Palpation Findings Soft Tissue Tightness Palpation Details There is scar tissue noted over the suprapubic fascia on the right side in the region of bladder urgency symptoms One Palpation Location right sacral ARCENIO and S2-4 region Palpation Details right sided sacral palpation in the region of S2-4 did reproduce bladder urgency findings PT-OP-K Range of Motion Start: 01/13/18 07:25 Freq: Status: Active Protocol: Document 01/13/18 14:58 [facility] (Rec: 01/13/18 15:29 [facility] [email or web address]) Knee Goniometric Range of Motion Knee Measured in Degrees Right Patient Position Supine Flexion Active (degrees) 110 Extension Active (degrees) 2 Left Patient Position Supine Flexion Active (degrees) 115 Extension Active (degrees) 2 PT-OP-M Strength Start: 01/13/18 07:25 Freq: Status: Active Protocol: Document 01/13/18 14:58 [facility] (Rec: 01/13/18 15:29 [facility] [email or web address]) Hip Strength Hip Manual Muscle Testing Right Flexion (L2) 5 Normal External Rotation 4 Good Internal Rotation 4 Good Left Flexion (L2) 5 Normal External Rotation 4- Good- Internal Rotation 4 Good Knee Strength Knee Manual Muscle Testing Right Flexion (S2) 4+ Good+ Extension (L3) 4+ Good+ Left Flexion (S2) 4 Good Extension (L3) 4+ Good+ Ankle/Foot Strength Ankle and Foot Manual Muscle Testing Right Dorsiflexion (L4) 5 Normal Plantarflexion (S1) 4+ Good+ Left Dorsiflexion (L4) 5 Normal Plantarflexion (S1) 4+ Good+ Comments seated testing PT-OP-Q Treatments Start: 01/13/18 07:25 Freq: Status: Active Protocol: Document 04/06/18 17:28 [facility] (Rec: 04/06/18 17:32 [facility] [email or web address]) Manual Therapy Treatment Soft Tissue Mobilization 1 Body Location MFR across suprapubic fascia and region of the cecum Body Position Supine Comments good tolerance Manual Techniques 1 Type manual iliopsoas stretch Comments in migue test position PT-OP-R Modalities Start: 01/13/18 07:25 Freq: Status: Active Protocol: Document 04/06/18 17:28 [facility] (Rec: 04/06/18 17:32 [facility] [email or web address]) Ultrasound Therapy Treatment right lower abdomen Treatment Duration (minutes) 8 Patient Position Supine Coupling Medium Ultrasound Gel Applicator Size (cm2) 5 Frequency Setting (mHz) 1 Mode Setting Continuous Duty Cycle 100% Intensity Setting (w/cm2) 1.5 PT-OP-S Aquatic Treatment Start: 01/15/18 15:53 Freq: Status: Active Protocol: Document 02/15/18 11:30 [facility] (Rec: 02/15/18 15:48 [facility] [email or web address]) Aquatics Treatment Pool Entry/Exit Pool Entry/Exit Method Stairs Assistance Independent Upper Extremity Exercises 1 Details plank Body Position Standing Water Level Chest Level Equipment long barbell Reps/Duration 10 Comments emphasis on core stabilization Spinal Exercises 2 Details Deep water stabilization Water Level Firestone Equipment Large barbells Comments including single and double arm pull downs 1 Details supine crunch Equipment Large Noodle Reps/Duration 30 Comments including obliques Firestone Activities Firestone Activities Bicycle Bicycle Backwards [place] Running Hip Abduction/Adduction Duration 25 Comments Small resistance fins, 5 rounds of 30/30 PT-OP-T Assessment and Plan Start: 01/13/18 07:25 Freq: Status: Active Protocol: Document 04/06/18 17:28 [facility] (Rec: 04/06/18 17:32 [facility] [email or web address]) Physical Therapy Assessment Assessment Summary Assessment Carlos has myofascial restrictions and scar tissue near the cecum and stoma. MFR to this region reproduced his phantom bladder symtoms today Physical Therapy Plan Frequency and Duration Frequency of Treatment 2x/Week Duration of Treatment 6 wks Plan of Care Start Date 03/30/18 Plan of Care End Date 05/11/18 Therapeutic Interventions Therapeutic Interventions Aquatic Therapy Balance Training Gait Training Manual Therapy Self-Care/Home Management Soft Tissue Mobilization Taping Therapeutic Exercises Next Visit Focus/Plan Next Note Type Treatment Note Next Visit Plan continue working on scar tissue reduction to see if we can decrease nerve symptoms
--- NOTE | 2018-04-13 16:19 | PT.OTN ---
Current Diagnoses Morbid (severe) obesity due to excess calories (04/13/18) Pain in left knee (04/13/18) Physical Therapy Treatment Note PT-OP-A Visit Information Start: 01/13/18 07:25 Freq: Status: Active Protocol: Document 04/06/18 17:28 [facility] (Rec: 04/06/18 17:32 [facility] [email or web address]) Out-Patient Physical Therapy Visit Information Visit Information Visit Type Treatment Note Visit Start Time 14:30 Visit Stop Time 15:15 Total Visit Minutes 45 Visit Number 16 Number of EXHIBITOR SALES Visits 0 PT-OP-B Current Condition Start: 01/13/18 07:25 Freq: Status: Active Protocol: Document 02/16/18 09:45 [facility] (Rec: 02/17/18 09:43 [facility] [email or web address]) Current Condition History of Current Condition Current Complaints c/o frequent bladder urgency day and night History of Current Condition bladder urgency symptoms began initially 5 years ago at 6 months s/p bladder cancer and removal of the bladder when the urostomy was performed. These symptoms were brought to his doctors attention but went away on their own. Now in the last 6 months these symptoms have returned. Carlos describes these symptoms as if she has a urge to void. They wake him up numerous times per night and occur frequently throughout the day. He reports feeling symptoms on the right side of his pelvis and urges last 10- 30 seconds at a time. Carlos also reports these symptoms started out as a tingling sensation but have greadually increased. He notes that they seem to have increased with his increase in exercise and weight loss. Future Testing and Treatments Planned Carlos is scheduled for a MRI and blood work on 03/02/18 PT-OP-C Subjective Start: 01/13/18 07:25 Freq: Status: Active Protocol: Document 04/13/18 16:13 [facility] (Rec: 04/13/18 16:16 [facility] [email or web address]) OP-PT Subjective Patient Comments Patient Comments Christiano reports symptoms may be a little better but he is not sleeping at all and is very tired today PT-OP-G Mobility & Gait Start: 01/13/18 07:25 Freq: Status: Active Protocol: Document 01/13/18 14:58 [facility] (Rec: 01/13/18 15:29 [facility] [email or web address]) OP Gait Assessment Comments Gait Comments Dec overall push off with inc lat lean. PT-OP-J Posture/Palpation/Skin Start: 01/13/18 07:25 Freq: Status: Active Protocol: Document 03/30/18 17:14 [facility] (Rec: 03/30/18 17:23 [facility] [email or web address]) Palpation Assessment Location Two Palpation Location suprapubic fascia Palpation Findings Soft Tissue Tightness Palpation Details There is scar tissue noted over the suprapubic fascia on the right side in the region of bladder urgency symptoms One Palpation Location right sacral ARCENIO and S2-4 region Palpation Details right sided sacral palpation in the region of S2-4 did reproduce bladder urgency findings PT-OP-K Range of Motion Start: 01/13/18 07:25 Freq: Status: Active Protocol: Document 01/13/18 14:58 [facility] (Rec: 01/13/18 15:29 [facility] [email or web address]) Knee Goniometric Range of Motion Knee Measured in Degrees Right Patient Position Supine Flexion Active (degrees) 110 Extension Active (degrees) 2 Left Patient Position Supine Flexion Active (degrees) 115 Extension Active (degrees) 2 PT-OP-M Strength Start: 01/13/18 07:25 Freq: Status: Active Protocol: Document 01/13/18 14:58 [facility] (Rec: 01/13/18 15:29 [facility] [email or web address]) Hip Strength Hip Manual Muscle Testing Right Flexion (L2) 5 Normal External Rotation 4 Good Internal Rotation 4 Good Left Flexion (L2) 5 Normal External Rotation 4- Good- Internal Rotation 4 Good Knee Strength Knee Manual Muscle Testing Right Flexion (S2) 4+ Good+ Extension (L3) 4+ Good+ Left Flexion (S2) 4 Good Extension (L3) 4+ Good+ Ankle/Foot Strength Ankle and Foot Manual Muscle Testing Right Dorsiflexion (L4) 5 Normal Plantarflexion (S1) 4+ Good+ Left Dorsiflexion (L4) 5 Normal Plantarflexion (S1) 4+ Good+ Comments seated testing PT-OP-Q Treatments Start: 01/13/18 07:25 Freq: Status: Active Protocol: Document 04/13/18 16:13 [facility] (Rec: 04/13/18 16:16 [facility] [email or web address]) Manual Therapy Treatment Soft Tissue Mobilization 1 Body Location MFR across suprapubic fascia and region of the cecum Body Position Supine Comments good tolerance Manual Techniques 1 Type manual iliopsoas stretch Comments in migue test position PT-OP-R Modalities Start: 01/13/18 07:25 Freq: Status: Active Protocol: Document 04/13/18 16:13 [facility] (Rec: 04/13/18 16:16 [facility] [email or web address]) Electric Stimulation Electric Stimulation Pre-Modulated Body Location sacral nerve roots Comments trial of electrical stimulation over the sacral nerve roots bilaterally PT-OP-S Aquatic Treatment Start: 01/15/18 15:53 Freq: Status: Active Protocol: Document 02/15/18 11:30 [facility] (Rec: 02/15/18 15:48 [facility] [email or web address]) Aquatics Treatment Pool Entry/Exit Pool Entry/Exit Method Stairs Assistance Independent Upper Extremity Exercises 1 Details plank Body Position Standing Water Level Chest Level Equipment long barbell Reps/Duration 10 Comments emphasis on core stabilization Spinal Exercises 2 Details Deep water stabilization Water Level Wing Equipment Large barbells Comments including single and double arm pull downs 1 Details supine crunch Equipment Large Noodle Reps/Duration 30 Comments including obliques Wing Activities Wing Activities Bicycle Bicycle Backwards [place] Running Hip Abduction/Adduction Duration 25 Comments Small resistance fins, 5 rounds of 30/30 PT-OP-T Assessment and Plan Start: 01/13/18 07:25 Freq: Status: Active Protocol: Document 04/13/18 16:13 [facility] (Rec: 04/13/18 16:16 [facility] [email or web address]) Physical Therapy Assessment Assessment Summary Assessment Tender over the supra pubic fascia today, did a trial of electrical stimulation again today with treatment. Christiano may benefit from a home TENS unit I will send his MD a referral today Physical Therapy Plan Frequency and Duration Frequency of Treatment 2x/Week Duration of Treatment 6 wks Plan of Care Start Date 03/30/18 Plan of Care End Date 05/11/18 Therapeutic Interventions Therapeutic Interventions Aquatic Therapy Balance Training Gait Training Manual Therapy Self-Care/Home Management Soft Tissue Mobilization Taping Therapeutic Exercises Next Visit Focus/Plan Next Note Type Treatment Note Next Visit Plan Trial of home TENS if insurance approves, continue with manual therapy treatments
--- NOTE | 2018-04-27 18:20 | PT.OTN ---
Current Diagnoses Morbid (severe) obesity due to excess calories (04/27/18) Pain in left knee (04/27/18) Physical Therapy Treatment Note PT-OP-A Visit Information Start: 01/13/18 07:25 Freq: Status: Active Protocol: Document 04/27/18 18:16 [facility] (Rec: 04/27/18 18:19 [facility] [email or web address]) Out-Patient Physical Therapy Visit Information Visit Information Visit Type Treatment Note Visit Start Time 14:30 Visit Stop Time 15:15 Total Visit Minutes 45 Visit Number 17 Number of FUR BLOWING MACHINE ATTENDANT Visits 0 PT-OP-B Current Condition Start: 01/13/18 07:25 Freq: Status: Active Protocol: Document 02/16/18 09:45 [facility] (Rec: 02/17/18 09:43 [facility] [email or web address]) Current Condition History of Current Condition Current Complaints c/o frequent bladder urgency day and night History of Current Condition bladder urgency symptoms began initially 5 years ago at 6 months s/p bladder cancer and removal of the bladder when the urostomy was performed. These symptoms were brought to his doctors attention but went away on their own. Now in the last 6 months these symptoms have returned. Carlos describes these symptoms as if she has a urge to void. They wake him up numerous times per night and occur frequently throughout the day. He reports feeling symptoms on the right side of his pelvis and urges last 10- 30 seconds at a time. Carlos also reports these symptoms started out as a tingling sensation but have greadually increased. He notes that they seem to have increased with his increase in exercise and weight loss. Future Testing and Treatments Planned Carlos is scheduled for a MRI and blood work on 03/02/18 PT-OP-C Subjective Start: 01/13/18 07:25 Freq: Status: Active Protocol: Document 04/27/18 18:16 [facility] (Rec: 04/27/18 18:19 [facility] [email or web address]) OP-PT Subjective Patient Comments Patient Comments Christiano notes that the frequency of his urges is slightly better. She has been feeling fatigued following his treatments PT-OP-G Mobility & Gait Start: 01/13/18 07:25 Freq: Status: Active Protocol: Document 01/13/18 14:58 [facility] (Rec: 01/13/18 15:29 [facility] [email or web address]) OP Gait Assessment Comments Gait Comments Dec overall push off with inc lat lean. PT-OP-J Posture/Palpation/Skin Start: 01/13/18 07:25 Freq: Status: Active Protocol: Document 03/30/18 17:14 [facility] (Rec: 03/30/18 17:23 [facility] [email or web address]) Palpation Assessment Location Two Palpation Location suprapubic fascia Palpation Findings Soft Tissue Tightness Palpation Details There is scar tissue noted over the suprapubic fascia on the right side in the region of bladder urgency symptoms One Palpation Location right sacral ARCENIO and S2-4 region Palpation Details right sided sacral palpation in the region of S2-4 did reproduce bladder urgency findings PT-OP-K Range of Motion Start: 01/13/18 07:25 Freq: Status: Active Protocol: Document 01/13/18 14:58 [facility] (Rec: 01/13/18 15:29 [facility] [email or web address]) Knee Goniometric Range of Motion Knee Measured in Degrees Right Patient Position Supine Flexion Active (degrees) 110 Extension Active (degrees) 2 Left Patient Position Supine Flexion Active (degrees) 115 Extension Active (degrees) 2 PT-OP-M Strength Start: 01/13/18 07:25 Freq: Status: Active Protocol: Document 01/13/18 14:58 [facility] (Rec: 01/13/18 15:29 [facility] [email or web address]) Hip Strength Hip Manual Muscle Testing Right Flexion (L2) 5 Normal External Rotation 4 Good Internal Rotation 4 Good Left Flexion (L2) 5 Normal External Rotation 4- Good- Internal Rotation 4 Good Knee Strength Knee Manual Muscle Testing Right Flexion (S2) 4+ Good+ Extension (L3) 4+ Good+ Left Flexion (S2) 4 Good Extension (L3) 4+ Good+ Ankle/Foot Strength Ankle and Foot Manual Muscle Testing Right Dorsiflexion (L4) 5 Normal Plantarflexion (S1) 4+ Good+ Left Dorsiflexion (L4) 5 Normal Plantarflexion (S1) 4+ Good+ Comments seated testing PT-OP-Q Treatments Start: 01/13/18 07:25 Freq: Status: Active Protocol: Document 04/27/18 18:16 [facility] (Rec: 04/27/18 18:19 [facility] [email or web address]) Manual Therapy Treatment Soft Tissue Mobilization 1 Body Location MFR across suprapubic fascia and region of the cecum Body Position Supine Comments good tolerance Manual Techniques 1 Type manual iliopsoas stretch Comments in migue test position PT-OP-R Modalities Start: 01/13/18 07:25 Freq: Status: Active Protocol: Document 04/27/18 18:19 [facility] (Rec: 04/27/18 18:20 [facility] [email or web address]) Electric Stimulation Electric Stimulation Pre-Modulated Body Location sacral nerve roots Comments trial of electrical stimulation over the sacral nerve roots bilaterally PT-OP-S Aquatic Treatment Start: 01/15/18 15:53 Freq: Status: Active Protocol: Document 02/15/18 11:30 [facility] (Rec: 02/15/18 15:48 [facility] [email or web address]) Aquatics Treatment Pool Entry/Exit Pool Entry/Exit Method Stairs Assistance Independent Upper Extremity Exercises 1 Details plank Body Position Standing Water Level Chest Level Equipment long barbell Reps/Duration 10 Comments emphasis on core stabilization Spinal Exercises 2 Details Deep water stabilization Water Level [place] Equipment Large barbells Comments including single and double arm pull downs 1 Details supine crunch Equipment Large Noodle Reps/Duration 30 Comments including obliques [place] Activities [place] Activities Bicycle Bicycle Backwards [place] Running Hip Abduction/Adduction Duration 25 Comments Small resistance fins, 5 rounds of 30/30 PT-OP-T Assessment and Plan Start: 01/13/18 07:25 Freq: Status: Active Protocol: Document 04/27/18 18:16 [facility] (Rec: 04/27/18 18:19 [facility] [email or web address]) Physical Therapy Assessment Assessment Summary Assessment tolerating treatment well and MFR reproduces symptoms of urgency Physical Therapy Plan Frequency and Duration Frequency of Treatment 2x/Week Duration of Treatment 6 wks Plan of Care Start Date 03/30/18 Plan of Care End Date 05/11/18 Next Visit Focus/Plan Next Note Type Treatment Note Next Visit Plan continue with Plan of care
--- NOTE | 2018-05-05 14:36 | PT.OTN ---
Current Diagnoses Morbid (severe) obesity due to excess calories (05/04/18) Pain in left knee (05/04/18) Physical Therapy Treatment Note PT-OP-A Visit Information Start: 01/13/18 07:25 Freq: Status: Active Protocol: Document 05/04/18 14:30 [facility] (Rec: 05/05/18 14:36 [facility] [email or web address]) Out-Patient Physical Therapy Visit Information Visit Information Visit Type Treatment Note Visit Start Time 14:30 Visit Stop Time 15:15 Total Visit Minutes 45 Visit Number 18 Number of WELDING SPECIALIST Visits 0 PT-OP-B Current Condition Start: 01/13/18 07:25 Freq: Status: Active Protocol: Document 02/16/18 09:45 [facility] (Rec: 02/17/18 09:43 [facility] [email or web address]) Current Condition History of Current Condition Current Complaints c/o frequent bladder urgency day and night History of Current Condition bladder urgency symptoms began initially 5 years ago at 6 months s/p bladder cancer and removal of the bladder when the urostomy was performed. These symptoms were brought to his doctors attention but went away on their own. Now in the last 6 months these symptoms have returned. Carlos describes these symptoms as if she has a urge to void. They wake him up numerous times per night and occur frequently throughout the day. He reports feeling symptoms on the right side of his pelvis and urges last 10- 30 seconds at a time. Carlos also reports these symptoms started out as a tingling sensation but have greadually increased. He notes that they seem to have increased with his increase in exercise and weight loss. Future Testing and Treatments Planned Carlos is scheduled for a MRI and blood work on 03/02/18 PT-OP-C Subjective Start: 01/13/18 07:25 Freq: Status: Active Protocol: Document 05/04/18 14:30 [facility] (Rec: 05/05/18 14:36 [facility] [email or web address]) OP-PT Subjective Patient Comments Patient Comments Christiano reports he started taking Neurontin per Dr. Dahl 2 days ago and feels like he may be sleeping a little better. He notes Dr. Dahl had liked the idea of doing deep tissue ultrasound to to help break up scar tissue PT-OP-G Mobility & Gait Start: 01/13/18 07:25 Freq: Status: Active Protocol: Document 01/13/18 14:58 [facility] (Rec: 01/13/18 15:29 [facility] [email or web address]) OP Gait Assessment Comments Gait Comments Dec overall push off with inc lat lean. PT-OP-J Posture/Palpation/Skin Start: 01/13/18 07:25 Freq: Status: Active Protocol: Document 03/30/18 17:14 [facility] (Rec: 03/30/18 17:23 [facility] [email or web address]) Palpation Assessment Location Two Palpation Location suprapubic fascia Palpation Findings Soft Tissue Tightness Palpation Details There is scar tissue noted over the suprapubic fascia on the right side in the region of bladder urgency symptoms One Palpation Location right sacral ARCENIO and S2-4 region Palpation Details right sided sacral palpation in the region of S2-4 did reproduce bladder urgency findings PT-OP-K Range of Motion Start: 01/13/18 07:25 Freq: Status: Active Protocol: Document 01/13/18 14:58 [facility] (Rec: 01/13/18 15:29 [facility] [email or web address]) Knee Goniometric Range of Motion Knee Measured in Degrees Right Patient Position Supine Flexion Active (degrees) 110 Extension Active (degrees) 2 Left Patient Position Supine Flexion Active (degrees) 115 Extension Active (degrees) 2 PT-OP-M Strength Start: 01/13/18 07:25 Freq: Status: Active Protocol: Document 01/13/18 14:58 [facility] (Rec: 01/13/18 15:29 [facility] [email or web address]) Hip Strength Hip Manual Muscle Testing Right Flexion (L2) 5 Normal External Rotation 4 Good Internal Rotation 4 Good Left Flexion (L2) 5 Normal External Rotation 4- Good- Internal Rotation 4 Good Knee Strength Knee Manual Muscle Testing Right Flexion (S2) 4+ Good+ Extension (L3) 4+ Good+ Left Flexion (S2) 4 Good Extension (L3) 4+ Good+ Ankle/Foot Strength Ankle and Foot Manual Muscle Testing Right Dorsiflexion (L4) 5 Normal Plantarflexion (S1) 4+ Good+ Left Dorsiflexion (L4) 5 Normal Plantarflexion (S1) 4+ Good+ Comments seated testing PT-OP-Q Treatments Start: 01/13/18 07:25 Freq: Status: Active Protocol: Document 05/04/18 14:30 [facility] (Rec: 05/05/18 14:36 [facility] [email or web address]) Manual Therapy Treatment Soft Tissue Mobilization 1 Body Location MFR across suprapubic fascia and region of the cecum Body Position Supine Comments good tolerance PT-OP-R Modalities Start: 01/13/18 07:25 Freq: Status: Active Protocol: Document 05/04/18 14:30 [facility] (Rec: 05/05/18 14:36 [facility] [email or web address]) Ultrasound Therapy Treatment right lower abdomen Treatment Duration (minutes) 8 Patient Position Supine Coupling Medium Ultrasound Gel Applicator Size (cm2) 5 Frequency Setting (mHz) 1 Mode Setting Continuous Duty Cycle 100% Intensity Setting (w/cm2) 1.5 PT-OP-S Aquatic Treatment Start: 01/15/18 15:53 Freq: Status: Active Protocol: Document 02/15/18 11:30 [facility] (Rec: 02/15/18 15:48 [facility] [email or web address]) Aquatics Treatment Pool Entry/Exit Pool Entry/Exit Method Stairs Assistance Independent Upper Extremity Exercises 1 Details plank Body Position Standing Water Level Chest Level Equipment long barbell Reps/Duration 10 Comments emphasis on core stabilization Spinal Exercises 2 Details Deep water stabilization Water Level [place] Equipment Large barbells Comments including single and double arm pull downs 1 Details supine crunch Equipment Large Noodle Reps/Duration 30 Comments including obliques [place] Activities [place] Activities Bicycle Bicycle Backwards [place] Running Hip Abduction/Adduction Duration 25 Comments Small resistance fins, 5 rounds of 30/30 PT-OP-T Assessment and Plan Start: 01/13/18 07:25 Freq: Status: Active Protocol: Document 05/04/18 14:30 [facility] (Rec: 05/05/18 14:36 [facility] [email or web address]) Physical Therapy Assessment Assessment Summary Assessment tolerating treatment well, tired following treatment, sleeping is improved. Physical Therapy Plan Frequency and Duration Frequency of Treatment 2x/Week Duration of Treatment 6 wks Plan of Care Start Date 03/30/18 Plan of Care End Date 05/11/18 Therapeutic Interventions Therapeutic Interventions Aquatic Therapy Balance Training Gait Training Manual Therapy Self-Care/Home Management Soft Tissue Mobilization Taping Therapeutic Exercises Next Visit Focus/Plan Next Note Type Treatment Note Next Visit Plan continue with ultrasound and deep tissue scar release
--- NOTE | 2018-05-11 16:47 | PT.OTN ---
Current Diagnoses Morbid (severe) obesity due to excess calories (05/11/18) Pain in left knee (05/11/18) Physical Therapy Treatment Note PT-OP-A Visit Information Start: 01/13/18 07:25 Freq: Status: Active Protocol: Document 05/11/18 16:38 [facility] (Rec: 05/11/18 16:47 [facility] [email or web address]) Out-Patient Physical Therapy Visit Information Visit Information Visit Type Treatment Note Visit Start Time 14:30 Visit Stop Time 15:15 Total Visit Minutes 45 Visit Number 19 Number of CHIEF PSYCHOLOGIST Visits 0 PT-OP-B Current Condition Start: 01/13/18 07:25 Freq: Status: Active Protocol: Document 02/16/18 09:45 [facility] (Rec: 02/17/18 09:43 [facility] [email or web address]) Current Condition History of Current Condition Current Complaints c/o frequent bladder urgency day and night History of Current Condition bladder urgency symptoms began initially 5 years ago at 6 months s/p bladder cancer and removal of the bladder when the urostomy was performed. These symptoms were brought to his doctors attention but went away on their own. Now in the last 6 months these symptoms have returned. Carlos describes these symptoms as if she has a urge to void. They wake him up numerous times per night and occur frequently throughout the day. He reports feeling symptoms on the right side of his pelvis and urges last 10- 30 seconds at a time. Carlos also reports these symptoms started out as a tingling sensation but have greadually increased. He notes that they seem to have increased with his increase in exercise and weight loss. Future Testing and Treatments Planned Carlos is scheduled for a MRI and blood work on 03/02/18 PT-OP-C Subjective Start: 01/13/18 07:25 Freq: Status: Active Protocol: Document 05/11/18 16:38 [facility] (Rec: 05/11/18 16:47 [facility] [email or web address]) OP-PT Subjective Patient Comments Patient Comments Christiano reports he is still experiencing his nerve like symptoms but now they seem more intense and are painful. They wake him up multiple times per night and increasing in intensity PT-OP-G Mobility & Gait Start: 01/13/18 07:25 Freq: Status: Active Protocol: Document 01/13/18 14:58 [facility] (Rec: 01/13/18 15:29 [facility] [email or web address]) OP Gait Assessment Comments Gait Comments Dec overall push off with inc lat lean. PT-OP-J Posture/Palpation/Skin Start: 01/13/18 07:25 Freq: Status: Active Protocol: Document 03/30/18 17:14 [facility] (Rec: 03/30/18 17:23 [facility] [email or web address]) Palpation Assessment Location Two Palpation Location suprapubic fascia Palpation Findings Soft Tissue Tightness Palpation Details There is scar tissue noted over the suprapubic fascia on the right side in the region of bladder urgency symptoms One Palpation Location right sacral ARCENIO and S2-4 region Palpation Details right sided sacral palpation in the region of S2-4 did reproduce bladder urgency findings PT-OP-K Range of Motion Start: 01/13/18 07:25 Freq: Status: Active Protocol: Document 01/13/18 14:58 [facility] (Rec: 01/13/18 15:29 [facility] [email or web address]) Knee Goniometric Range of Motion Knee Measured in Degrees Right Patient Position Supine Flexion Active (degrees) 110 Extension Active (degrees) 2 Left Patient Position Supine Flexion Active (degrees) 115 Extension Active (degrees) 2 PT-OP-M Strength Start: 01/13/18 07:25 Freq: Status: Active Protocol: Document 01/13/18 14:58 [facility] (Rec: 01/13/18 15:29 [facility] [email or web address]) Hip Strength Hip Manual Muscle Testing Right Flexion (L2) 5 Normal External Rotation 4 Good Internal Rotation 4 Good Left Flexion (L2) 5 Normal External Rotation 4- Good- Internal Rotation 4 Good Knee Strength Knee Manual Muscle Testing Right Flexion (S2) 4+ Good+ Extension (L3) 4+ Good+ Left Flexion (S2) 4 Good Extension (L3) 4+ Good+ Ankle/Foot Strength Ankle and Foot Manual Muscle Testing Right Dorsiflexion (L4) 5 Normal Plantarflexion (S1) 4+ Good+ Left Dorsiflexion (L4) 5 Normal Plantarflexion (S1) 4+ Good+ Comments seated testing PT-OP-Q Treatments Start: 01/13/18 07:25 Freq: Status: Active Protocol: Document 05/11/18 16:38 [facility] (Rec: 05/11/18 16:47 [facility] [email or web address]) Manual Therapy Treatment Soft Tissue Mobilization 1 Body Location MFR across suprapubic fascia and region of the cecum Body Position Supine Comments good tolerance Manual Techniques 1 Type manual iliopsoas stretch Comments in migue test position PT-OP-R Modalities Start: 01/13/18 07:25 Freq: Status: Active Protocol: Document 05/11/18 16:47 [facility] (Rec: 05/11/18 16:47 [facility] [email or web address]) Ultrasound Therapy Treatment right lower abdomen Treatment Duration (minutes) 8 Patient Position Supine Coupling Medium Ultrasound Gel Applicator Size (cm2) 5 Frequency Setting (mHz) 1 Mode Setting Continuous Duty Cycle 100% Intensity Setting (w/cm2) 1.5 PT-OP-S Aquatic Treatment Start: 01/15/18 15:53 Freq: Status: Active Protocol: Document 02/15/18 11:30 [facility] (Rec: 02/15/18 15:48 [facility] [email or web address]) Aquatics Treatment Pool Entry/Exit Pool Entry/Exit Method Stairs Assistance Independent Upper Extremity Exercises 1 Details plank Body Position Standing Water Level Chest Level Equipment long barbell Reps/Duration 10 Comments emphasis on core stabilization Spinal Exercises 2 Details Deep water stabilization Water Level [place] Equipment Large barbells Comments including single and double arm pull downs 1 Details supine crunch Equipment Large Noodle Reps/Duration 30 Comments including obliques [place] Activities [place] Activities Bicycle Bicycle Backwards [place] Running Hip Abduction/Adduction Duration 25 Comments Small resistance fins, 5 rounds of 30/30 PT-OP-T Assessment and Plan Start: 01/13/18 07:25 Freq: Status: Active Protocol: Document 05/11/18 16:38 [facility] (Rec: 05/11/18 16:47 [facility] [email or web address]) Physical Therapy Assessment Assessment Summary Assessment no change with treatment at this point, still experiencing symptoms. Christiano notes he will begin taking 2 neurontin as prescribed instead of 1. Physical Therapy Plan Frequency and Duration Frequency of Treatment 2x/Week Duration of Treatment 6 wks Plan of Care Start Date 03/30/18 Plan of Care End Date 05/11/18 Next Visit Focus/Plan Next Note Type Treatment Note Next Visit Plan continue xm one additional visit then TONA PT
--- NOTE | 2018-05-19 09:56 | PT.OTN ---
Current Diagnoses Morbid (severe) obesity due to excess calories (05/18/18) Pain in left knee (05/18/18) Physical Therapy Treatment Note PT-OP-A Visit Information Start: 01/13/18 07:25 Freq: Status: Active Protocol: Document 05/18/18 14:30 [facility] (Rec: 05/19/18 09:56 [facility] [email or web address]) Out-Patient Physical Therapy Visit Information Visit Information Visit Type Treatment Note Visit Start Time 14:30 Visit Stop Time 15:15 Total Visit Minutes 45 Visit Number 20 Number of ABNORMAL PSYCHOLOGY TEACHER Visits 0 PT-OP-B Current Condition Start: 01/13/18 07:25 Freq: Status: Active Protocol: Document 02/16/18 09:45 [facility] (Rec: 02/17/18 09:43 [facility] [email or web address]) Current Condition History of Current Condition Current Complaints c/o frequent bladder urgency day and night History of Current Condition bladder urgency symptoms began initially 5 years ago at 6 months s/p bladder cancer and removal of the bladder when the urostomy was performed. These symptoms were brought to his doctors attention but went away on their own. Now in the last 6 months these symptoms have returned. Carlos describes these symptoms as if she has a urge to void. They wake him up numerous times per night and occur frequently throughout the day. He reports feeling symptoms on the right side of his pelvis and urges last 10- 30 seconds at a time. Carlos also reports these symptoms started out as a tingling sensation but have greadually increased. He notes that they seem to have increased with his increase in exercise and weight loss. Future Testing and Treatments Planned Carlos is scheduled for a MRI and blood work on 03/02/18 PT-OP-C Subjective Start: 01/13/18 07:25 Freq: Status: Active Protocol: Document 05/18/18 14:30 [facility] (Rec: 05/19/18 09:56 [facility] [email or web address]) OP-PT Subjective Patient Comments Patient Comments Christiano reports he had two really good nights where he slept much better with decreased urgency. He also started taking two of the neurontin. Urge symptoms were still there during the day. PT-OP-G Mobility & Gait Start: 01/13/18 07:25 Freq: Status: Active Protocol: Document 01/13/18 14:58 [facility] (Rec: 01/13/18 15:29 [facility] [email or web address]) OP Gait Assessment Comments Gait Comments Dec overall push off with inc lat lean. PT-OP-J Posture/Palpation/Skin Start: 01/13/18 07:25 Freq: Status: Active Protocol: Document 03/30/18 17:14 [facility] (Rec: 03/30/18 17:23 [facility] [email or web address]) Palpation Assessment Location Two Palpation Location suprapubic fascia Palpation Findings Soft Tissue Tightness Palpation Details There is scar tissue noted over the suprapubic fascia on the right side in the region of bladder urgency symptoms One Palpation Location right sacral ARCENIO and S2-4 region Palpation Details right sided sacral palpation in the region of S2-4 did reproduce bladder urgency findings PT-OP-K Range of Motion Start: 01/13/18 07:25 Freq: Status: Active Protocol: Document 01/13/18 14:58 [facility] (Rec: 01/13/18 15:29 [facility] [email or web address]) Knee Goniometric Range of Motion Knee Measured in Degrees Right Patient Position Supine Flexion Active (degrees) 110 Extension Active (degrees) 2 Left Patient Position Supine Flexion Active (degrees) 115 Extension Active (degrees) 2 PT-OP-M Strength Start: 01/13/18 07:25 Freq: Status: Active Protocol: Document 01/13/18 14:58 [facility] (Rec: 01/13/18 15:29 [facility] [email or web address]) Hip Strength Hip Manual Muscle Testing Right Flexion (L2) 5 Normal External Rotation 4 Good Internal Rotation 4 Good Left Flexion (L2) 5 Normal External Rotation 4- Good- Internal Rotation 4 Good Knee Strength Knee Manual Muscle Testing Right Flexion (S2) 4+ Good+ Extension (L3) 4+ Good+ Left Flexion (S2) 4 Good Extension (L3) 4+ Good+ Ankle/Foot Strength Ankle and Foot Manual Muscle Testing Right Dorsiflexion (L4) 5 Normal Plantarflexion (S1) 4+ Good+ Left Dorsiflexion (L4) 5 Normal Plantarflexion (S1) 4+ Good+ Comments seated testing PT-OP-Q Treatments Start: 01/13/18 07:25 Freq: Status: Active Protocol: Document 05/18/18 14:30 [facility] (Rec: 05/19/18 09:56 [facility] [email or web address]) Manual Therapy Treatment Soft Tissue Mobilization 1 Body Location MFR across suprapubic fascia and region of the cecum Body Position Supine Comments good tolerance Manual Techniques 1 Type manual iliopsoas stretch Comments in migue test position PT-OP-R Modalities Start: 01/13/18 07:25 Freq: Status: Active Protocol: Document 05/11/18 16:47 [facility] (Rec: 05/11/18 16:47 [facility] [email or web address]) Ultrasound Therapy Treatment right lower abdomen Treatment Duration (minutes) 8 Patient Position Supine Coupling Medium Ultrasound Gel Applicator Size (cm2) 5 Frequency Setting (mHz) 1 Mode Setting Continuous Duty Cycle 100% Intensity Setting (w/cm2) 1.5 PT-OP-S Aquatic Treatment Start: 01/15/18 15:53 Freq: Status: Active Protocol: Document 02/15/18 11:30 [facility] (Rec: 02/15/18 15:48 [facility] [email or web address]) Aquatics Treatment Pool Entry/Exit Pool Entry/Exit Method Stairs Assistance Independent Upper Extremity Exercises 1 Details plank Body Position Standing Water Level Chest Level Equipment long barbell Reps/Duration 10 Comments emphasis on core stabilization Spinal Exercises 2 Details Deep water stabilization Water Level [place] Equipment Large barbells Comments including single and double arm pull downs 1 Details supine crunch Equipment Large Noodle Reps/Duration 30 Comments including obliques [place] Activities [place] Activities Bicycle Bicycle Backwards [place] Running Hip Abduction/Adduction Duration 25 Comments Small resistance fins, 5 rounds of PT-OP-T Assessment and Plan Start: 01/13/18 07:25 Freq: Status: Active Protocol: Document 05/18/18 14:30 [facility] (Rec: 05/19/18 09:56 [facility] [email or web address]) Physical Therapy Assessment Assessment Summary Assessment Symptoms have improved, not sure if it is do to increase in medication or manual release. Will reassess symptoms again next visit Physical Therapy Plan Frequency and Duration Frequency of Treatment 2x/Week Duration of Treatment 8 weeks Plan of Care Start Date 05/18/18 Plan of Care End Date 07/13/18 Therapeutic Interventions Therapeutic Interventions Aquatic Therapy Balance Training Gait Training Manual Therapy Self-Care/Home Management Soft Tissue Mobilization Taping Therapeutic Exercises Next Visit Focus/Plan Next Note Type Treatment Note Next Visit Plan the patient has one visit left but is feeling like if symptoms are just starting to improve he would like to try more. We will reassess next visit
--- NOTE | 2018-07-07 10:54 | PT.OPDS ---
Current Diagnoses Morbid (severe) obesity due to excess calories (05/18/18) Pain in left knee (05/18/18) Provider Visit Care Team Role Provider Type Esteban Garcia MD Family Provider Physician Primary Care Provider Specialty: Internal Medicine Address: [address] [place] [address], [phone] Email: HECTOR Encinas Attending Provider Advanced Public Policy Manager Specialty: Medical Address: [address] [place] [address], [phone] Email: Visit Number Visit Number 20 Discharge Summary PT-OP-B Current Condition Start: 01/13/18 07:25 Freq: Status: Active Protocol: Document 02/16/18 09:45 [facility] (Rec: 02/17/18 09:43 [facility] [email or web address]) Current Condition History of Current Condition Current Complaints c/o frequent bladder urgency day and night History of Current Condition bladder urgency symptoms began initially 5 years ago at 6 months s/p bladder cancer and removal of the bladder when the urostomy was performed. These symptoms were brought to his doctors attention but went away on their own. Now in the last 6 months these symptoms have returned. Carlos describes these symptoms as if she has a urge to void. They wake him up numerous times per night and occur frequently throughout the day. He reports feeling symptoms on the right side of his pelvis and urges last 10- 30 seconds at a time. Carlos also reports these symptoms started out as a tingling sensation but have greadually increased. He notes that they seem to have increased with his increase in exercise and weight loss. Future Testing and Treatments Planned Carlos is scheduled for a MRI and blood work on 03/02/18 PT-OP-C Subjective Start: 01/13/18 07:25 Freq: Status: Active Protocol: Document 05/18/18 14:30 [facility] (Rec: 05/19/18 09:56 [facility] [email or web address]) OP-PT Subjective Patient Comments Patient Comments Christiano reports he had two really good nights where he slept much better with decreased urgency. He also started taking two of the neurontin. Urge symptoms were still there during the day. PT-OP-G Mobility & Gait Start: 01/13/18 07:25 Freq: Status: Active Protocol: Document 01/13/18 14:58 [facility] (Rec: 01/13/18 15:29 [facility] [email or web address]) OP Gait Assessment Comments Gait Comments Dec overall push off with inc lat lean. PT-OP-J Posture/Palpation/Skin Start: 01/13/18 07:25 Freq: Status: Active Protocol: Document 03/30/18 17:14 [facility] (Rec: 03/30/18 17:23 [facility] [email or web address]) Palpation Assessment Location Two Palpation Location suprapubic fascia Palpation Findings Soft Tissue Tightness Palpation Details There is scar tissue noted over the suprapubic fascia on the right side in the region of bladder urgency symptoms One Palpation Location right sacral ARCENIO and S2-4 region Palpation Details right sided sacral palpation in the region of S2-4 did reproduce bladder urgency findings PT-OP-K Range of Motion Start: 01/13/18 07:25 Freq: Status: Active Protocol: Document 01/13/18 14:58 [facility] (Rec: 01/13/18 15:29 [facility] [email or web address]) Knee Goniometric Range of Motion Knee Measured in Degrees Right Patient Position Supine Flexion Active (degrees) 110 Extension Active (degrees) 2 Left Patient Position Supine Flexion Active (degrees) 115 Extension Active (degrees) 2 PT-OP-M Strength Start: 01/13/18 07:25 Freq: Status: Active Protocol: Document 01/13/18 14:58 [facility] (Rec: 01/13/18 15:29 [facility] [email or web address]) Hip Strength Hip Manual Muscle Testing Right Flexion (L2) 5 Normal External Rotation 4 Good Internal Rotation 4 Good Left Flexion (L2) 5 Normal External Rotation 4- Good- Internal Rotation 4 Good Knee Strength Knee Manual Muscle Testing Right Flexion (S2) 4+ Good+ Extension (L3) 4+ Good+ Left Flexion (S2) 4 Good Extension (L3) 4+ Good+ Ankle/Foot Strength Ankle and Foot Manual Muscle Testing Right Dorsiflexion (L4) 5 Normal Plantarflexion (S1) 4+ Good+ Left Dorsiflexion (L4) 5 Normal Plantarflexion (S1) 4+ Good+ Comments seated testing PT-OP-T Assessment and Plan Start: 01/13/18 07:25 Freq: Status: Active Protocol: Document 07/07/18 10:52 [facility] (Rec: 12/19/18 10:54 [facility] [email or web address]) Physical Therapy Assessment Assessment Summary Assessment Carlos has been seen for MFR over the abdominal fascia to try and help with urgency symptoms. Despite efforts as of his last visit he was still experiencing phantom urge symptoms. He will be discharged from PT for this impairment at this time Physical Therapy Plan Discharge Physical Therapy Discharge Reasons [place] in Progress Discharge Comments Carlos would like to be seen for his lumbar spine symptoms. We are discharging him from urgency to void/phantom symptoms at this time
== END 2018-07-14 09:38 ==
LOC: PHYS 14:30
PROVIDERS: Family Provider Internal Medicine; PCP Internal Medicine; Visit Provider Registered Nurse
DX: M25.562 Pain in left knee (principal); E66.01 Morbid (severe) obesity due to excess calories
CPT/HCPCS: 71046; 97014; 97035; 97110; 97112; 97113; 97140; 97161; 97164; 97535; G0283

== ENCOUNTER → 2018-06-28 09:17 | Outpatient (CLI) | payer MEDICARE, OTHER, SELFPAY ==
--- NOTE | 2018-06-28 | DI.CT.S_ITS ---
PROCEDURE: CT LUMBAR SPINE WO CON INDICATIONS: bilateral sciatica at times frequncey of urination TECHNIQUE: Noncontrast 3 mm thick sections acquired from the T12 level to the sacrum. Sagittal and coronal reformats were constructed. For radiation dose reduction, the following was used: automated exposure control. COMPARISON: [facility], CT, CT ABDOMEN PELVIS WO/W CON, 03/02/2018, 10:29. FINDINGS: Image quality: Excellent. Bones: There is normal bony alignment. No acute vertebral body compression fractures. No suspicious lytic or blastic bony lesions. Central spinal caliber is of normal overall caliber. No pars defects. T12-L1: Normal appearance. L1-L2: Disc height is normal. Mild, diffuse disc bulge. Mild bilateral facet hypertrophy. Mild narrowing of the central canal. No neural foraminal narrowing. No definite neural impingement. L2-L3: Disc height is normal. Mild, diffuse disc bulge. Mild bilateral facet hypertrophy. Mild to moderate narrowing of the central canal. Mild bilateral neural foraminal narrowing. No definite neural impingement. L3-L4: Disc height is normal. Mild, diffuse disc bulge. Moderate facet and mild ligamentum flavum hypertrophy. Moderate to severe narrowing of the central canal. Moderate bilateral neural foraminal narrowing. No definite neural impingement. L4-L5: Disc height is normal. Moderate, diffuse disc bulge. Severe facet and moderate ligamentum flavum hypertrophy. Severe narrowing of the central canal. Severe bilateral neural foraminal narrowing with flattening deformity exiting L4 nerve roots. L5-S1: Disc height is normal. Mild, diffuse disc bulge. Severe right and moderate left neural foraminal narrowing. No central stenosis. Severe right and mild left neural foraminal narrowing flattening deformity exiting right L5 nerve root. Soft tissues: No retroperitoneal masses or hematomas. Partially visualized cyst in the right lobe liver is stable are visualized compared to prior CT scan obtained 03/02/2018. Scattered diverticuli noted in the visualized colon without evidence of diverticulitis. Visualized aorta is normal in caliber. IMPRESSION: 1. Multilevel degenerative disc disease. 2. Multilevel facet arthropathy. 3. Severe L4-L5 central canal narrowing. Moderate to severe L3-L4 central canal narrowing. Mild to moderate L2-L3 central canal narrowing. Mild L1-L2 Central canal narrowing. 4. Severe bilateral L4-L5 neural foraminal narrowing. Severe right and mild left L5-S1 neural foraminal narrowing. Moderate bilateral L3-L4 neural foraminal narrowing. Mild bilateral L2-L3 neural foraminal narrowing Dictated by: Aurelia Salomon MD, PhD on 06/28/2018 at 11:34 Approved by: Aurelia Salomon MD, PhD on 06/28/2018 at 11:51
--- NOTE | 2018-07-05 14:43 | ONC.NAV ---
Description: Financial Assistance Activity: Sent a check to [employer]. per pt's request, for $97.00, per authorization from Mary Jarvis. Enclosed a note for [employer]. to fax us the receipt.
== END ==
PROVIDERS: Family Provider Internal Medicine; PCP Internal Medicine; Visit Provider Nurse Practitioner Family
DX: M51.16 Intervertebral disc disorders with radiculopathy, lumbar region (principal); M51.17 Intervertebral disc disorders with radiculopathy, lumbosacral region; M47.26 Other spondylosis with radiculopathy, lumbar region; M48.061 Spinal stenosis, lumbar region without neurogenic claudication; M48.07 Spinal stenosis, lumbosacral region; R35.0 Frequency of micturition; K57.90 Diverticulosis of intestine, part unspecified, without perforation or abscess without bleeding; K76.89 Other specified diseases of liver
CPT/HCPCS: 72131

== ENCOUNTER 2018-08-16 12:30 | Outpatient (RCR) | payer MEDICARE, OTHER, SELFPAY ==
--- NOTE | 2018-07-08 14:10 | PT.OIE ---
Current Diagnoses Arthropathy, unspecified (07/08/18) Other intervertebral disc degeneration, lumbar region (07/08/18) Intervertebral disc stenosis of neural canal of lumbar region (07/08/18) Abnormal posture (07/08/18) Weakness (07/08/18) Past Medical History (Last Updated 01/13/18 @ 15:12 by Lorenza Keating, PT) Depression (Acute) Past Surgical History (Last Updated 01/13/18 @ 15:13 by Lorenza Keating, PT) History of total knee arthroplasty (Acute) History of urostomy (Acute) Provider Visit Care Team Role Provider Type Esteban Garcia MD Family Provider Physician Primary Care Provider Specialty: Internal Medicine Address: [address] [place] [address], [phone] Email: Luis Dahl MD Attending Provider Physician Specialty: Wound Care Address: [address] [place] [address], [facility] Email: [email or web address] Physical Therapy Initial Evaluation PT-OP-A Visit Information Start: 07/08/18 11:14 Freq: Status: Active Protocol: Document 07/08/18 11:15 [facility] (Rec: 07/08/18 12:08 [facility] [id number]) Out-Patient Physical Therapy Visit Information Visit Information Visit Type Initial Evaluation Visit Start Time 11:15 Visit Stop Time 12:05 Total Visit Minutes 50 Visit Number 1 Number of CALENDERER Visits 0 Evaluation Information Evaluation Date 07/08/18 Precautions Precautions Hx bladder cancer; just hit 5 year cancer free anniversary, Hx right TKA PT-OP-B Current Condition Start: 07/08/18 11:14 Freq: Status: Active Protocol: Document 07/08/18 11:15 [facility] (Rec: 07/08/18 12:08 [facility] [id number]) Current Condition History of Current Condition Onset Date 4 yrs Current Complaints LBP, anterior hip/groin pain, medial bilateral LE pain History of Current Condition Has had persistent, worsening pain. Has seen a chiropractor recently with some relief (70 % 3-4 days). Wants combination land and aquatic PT to do what he can to avoid surgery. No good position for pain relief. Prior PT focused on soft tissue relief, manual therapy anteriorly not helpful. 5 years clear of bladder CA. MRI shows miltilevel degenerative disc disease, multilevel facet arthropathy, severe L4-5 central canal narrowing, mild L1-2 central canal narrowing. Severe bilateral L4-5 neural foraminal narrowing, severe right and mild left L5-S1 neural foraminal narrowing. Moderate bilateral L3-4 neural foraminal narrowing, mild bilateral L2-L3 neural foraminal narrowing. Future Testing and Treatments Planned Waiting for consult at [facility] Treatment Goals Patient/Caregiver Goals Minimize pain, improve his function, avoid back surgery. Prior Functional Status Baseline Function- ADL's Independent Baseline Function- Mobility Independent Baseline Function- Gait indep Baseline Function- Recreation/Hobbies No limitations Current Functional Impairments (Reported) Functional Limitations- ADL's painful Functional Limitations- Mobility/Gait painful, limited to short distance community Functional Limitations- Recreation/ painful, unable Hobbies Personal Factors Other Personal Factors That May Effect obesity: BMI 41 Therapy/Recovery PT-OP-C Subjective Start: 07/08/18 11:14 Freq: Status: Active Protocol: Document 07/08/18 14:08 [facility] (Rec: 07/08/18 14:10 [facility] [id number]) Patient Questionnaires Oswestry Low Back Index Oswestry Score 47 Oswestry Impairment 40 to 59% Impaired (Score 40- 59) OP-PT Pain Assessment Pain Assessment Grid Paper Pain Assessment Grid Completed Yes Location Bilateral Pain Location Details lumbar spine, bernadette medial LE's, right anterior thigh Intensity 7 Description Aching Burning Pinching Pressure Spasm Tender Throbbing Frequency Intermittent Pain Alleviating Factors None PT-OP-G Mobility & Gait Start: 07/08/18 11:14 Freq: Status: Active Protocol: Document 07/08/18 11:15 [facility] (Rec: 07/08/18 14:04 [facility] [id number]) OP Mobility Evaluation Bed Mobility Rolling painful Supine to and from Sit painful Transfers Sit to Stand painful with increased lumbar lordosis OP Gait Assessment Gait Gait Assistance Required: Independent Assistive Devices Assistive Device None Gait Deviations General Gait Pattern Wide Based Gait Comments Gait Comments ER bernadette LE's, increased lumbar lordosis, increased thoracic kyphosis, forward head PT-OP-J Posture/Palpation/Skin Start: 07/08/18 11:14 Freq: Status: Active Protocol: Document 07/08/18 11:15 [facility] (Rec: 07/08/18 14:04 [facility] [id number]) Posture Evaluation Position Standing Head/C-Spine Posture Forward Head T-Spine Posture Increased Kyphosis L-Spine Posture Increased Lordosis Palpation Assessment Location Two Palpation Location lumbar parspinals Palpation Findings Soft Tissue Tightness Tenderness PT-OP-K Range of Motion Start: 07/08/18 11:14 Freq: Status: Active Protocol: Document 07/08/18 11:15 [facility] (Rec: 07/08/18 14:04 [facility] [id number]) Lumbar Spine Range of Motion Lumbar Spine Active Testing Position Standing Extension 20 Rotation Left 30 Rotation Right 30 Lateral Flexion Left 25 Lateral Flexion Right 25 Comments forward flexion of trunk to 80 deg but with minimal movement in lumbar spine; majority of movement occurs at hips Hip Goniometric Range of Motion Hip Measured in Degrees bernadette Testing Position Supine Flexion w/Knee Flexed 100 Straight Leg Raise 65 Extension 0 Internal Rotation 10 External Rotation 35 Hip ROM Limitations Hip ROM Limitations Soft Tissue Tightness Pain Knee Goniometric Range of Motion Knee Measured in Degrees Right Knee ROM WFL Yes Left Knee ROM WFL Yes PT-OP-M Strength Start: 07/08/18 11:14 Freq: Status: Active Protocol: Document 07/08/18 11:15 [facility] (Rec: 07/08/18 14:04 [facility] [id number]) Trunk Strength Trunk Manual Muscle Testing Core Stabilization poor activation of TrA, multifidi Hip Strength Hip Manual Muscle Testing bernadette Flexion (L2) 4 Good Extension (S1) 3+ Fair+ Abduction 4 Good External Rotation 4- Good- Internal Rotation 4 Good Knee Strength Knee Manual Muscle Testing bernadette Flexion (S2) 5 Normal Extension (L3) 5 Normal Ankle/Foot Strength Ankle and Foot Manual Muscle Testing Right Dorsiflexion (L4) 5 Normal Plantarflexion (S1) 5 Normal Left Dorsiflexion (L4) 5 Normal Plantarflexion (S1) 5 Normal PT-OP-Q Treatments Start: 07/08/18 11:14 Freq: Status: Active Protocol: Document 07/08/18 11:15 [facility] (Rec: 07/08/18 14:04 [facility] [id number]) Self-Care/Home Management Treatment Education Patient Education Body Mechanics Home Exercise Program Posture Other Education emphasis on posterior pelvic tilt. PT-OP-T Assessment and Plan Start: 07/08/18 11:14 Freq: Status: Active Protocol: Document 07/08/18 11:15 [facility] (Rec: 07/08/18 14:04 [facility] [id number]) Physical Therapy Assessment Rehab Potential Rehabilitation Potential Excellent Evaluation Complexity Number of Personal Factors/Comorbidities 1-2 Number of Body Systems Impaired 3 Clinical Presentation at Evaluation Evolving Impairments Impairments Activity Tolerance Functional Mobility Gait Pain Posture Strength Goals Four Impairment posture Short Term Goal (STG) Patient will demonstrate good understanding of neutral posture and be able to correct his posture with minimal verbal and manual cues STG Duration 6 wks Long-Term Goal (LTG) Patient will demonstrate ability to self-correct posture with no cues consistently LTG Duration 3 months Three Impairment strength/core stab Short Term Goal (STG) Patient to demonstrate good understanding of HEP and be compliant with HEP with emphasis on core stab and strengthening STG Duration 6 wks Linoleum Mechanic Goal (LTG) Patient to demonstrate good core stabilization with functional mobility skills LTG Duration 3 months Two Impairment activity tolerance Short Term Goal (STG) Decrease Oswestry disability index score to no greater than 30% STG Duration 6 wks Linoleum Mechanic Goal (LTG) Decrease Oswestry Disability Index score to no greater than 15% and return to usual activities without pain LTG Duration 3 months One Impairment painful functional mobility Short Term Goal (STG) Patient will be able to roll over in bed with minimal to no pain STG Duration 6 wks Linoleum Mechanic Goal (LTG) Patient will be able to perform all transfers and walk community distances with minimal to no pain. LTG Duration 3 months Physical Therapy Plan Therapeutic Interventions Therapeutic Interventions Aquatic Therapy Home Exercise Program Manual Therapy Neuromuscular Re-education Patient/Caregiver Education Self-Care/Home Management Soft Tissue Mobilization Taping Therapeutic Activities Therapeutic Exercises Modalities Cold Pack/Ice Massage Electric Stimulation Hot Packs Ultrasound Next Visit Focus/Plan Next Note Type Treatment Note Next Visit Plan Review HEP, progress as indicated. Aquatic therapy .
--- NOTE | 2018-07-08 14:10 | PT.OPPOC ---
Current Diagnoses Arthropathy, unspecified (07/08/18) Other intervertebral disc degeneration, lumbar region (07/08/18) Intervertebral disc stenosis of neural canal of lumbar region (07/08/18) Abnormal posture (07/08/18) Weakness (07/08/18) Provider Visit Care Team Role Provider Type Esteban Garcia MD Family Provider Physician Primary Care Provider Specialty: Internal Medicine Address: [address] [place] [address], [id number] Email: Luis Dahl MD Attending Provider Physician Specialty: Wound Care Address: [address] [place] [address], [id number] Email: [email or web address] Plan Of Care PT-OP-T Assessment and Plan Start: 07/08/18 11:14 Freq: Status: Active Protocol: Document 07/08/18 11:15 SAK (Rec: 07/08/18 14:04 SAK [id number]) Physical Therapy Assessment Rehab Potential Rehabilitation Potential Excellent Evaluation Complexity Number of Personal Factors/Comorbidities 1-2 Number of Body Systems Impaired 3 Clinical Presentation at Evaluation Evolving Impairments Impairments Activity Tolerance Functional Mobility Gait Pain Posture Strength Goals Four Impairment posture Short Term Goal (STG) Patient will demonstrate good understanding of neutral posture and be able to correct his posture with minimal verbal and manual cues STG Duration 6 wks Alf Goal (LTG) Patient will demonstrate ability to self-correct posture with no cues consistently LTG Duration 3 months Three Impairment strength/core stab Short Term Goal (STG) Patient to demonstrate good understanding of HEP and be compliant with HEP with emphasis on core stab and strengthening STG Duration 6 wks Alf Goal (LTG) Patient to demonstrate good core stabilization with functional mobility skills LTG Duration 3 months Two Impairment activity tolerance Short Term Goal (STG) Decrease Oswestry disability index score to no greater than 30% STG Duration 6 wks Alf Goal (LTG) Decrease Oswestry Disability Index score to no greater than 15% and return to usual activities without pain LTG Duration 3 months One Impairment painful functional mobility Short Term Goal (STG) Patient will be able to roll over in bed with minimal to no pain STG Duration 6 wks Radio Rigger Goal (LTG) Patient will be able to perform all transfers and walk community distances with minimal to no pain. LTG Duration 3 months Physical Therapy Plan Therapeutic Interventions Therapeutic Interventions Aquatic Therapy Home Exercise Program Manual Therapy Neuromuscular Re-education Patient/Caregiver Education Self-Care/Home Management Soft Tissue Mobilization Taping Therapeutic Activities Therapeutic Exercises Modalities Cold Pack/Ice Massage Electric Stimulation Hot Packs Ultrasound Next Visit Focus/Plan Next Note Type Treatment Note Next Visit Plan Review HEP, progress as indicated. Aquatic therapy . Plan of Care Dates Plan of Care Start Date 05/18/18 Plan of Care End Date 07/13/18 Please Sign and Return: I have reviewed this Plan of Care and certify that the skilled therapy services above are required to meet the patient?s needs. Physician Signature Date Printed Name and Credentials Clinical Instructor Signature Printed Name and Credentials
--- NOTE | 2018-07-09 11:14 | PT.OTN ---
Current Diagnoses Arthropathy, unspecified (07/09/18) Other intervertebral disc degeneration, lumbar region (07/09/18) Intervertebral disc stenosis of neural canal of lumbar region (07/09/18) Physical Therapy Treatment Note PT-OP-A Visit Information Start: 07/08/18 11:14 Freq: Status: Active Protocol: Document 07/09/18 10:16 SAK (Rec: 07/09/18 11:13 SAK [id number]) Out-Patient Physical Therapy Visit Information Visit Information Visit Type Treatment Note Visit Start Time 10:15 Visit Stop Time 11:05 Total Visit Minutes 50 Visit Number 2 Number of RUBBER CUTTING MACHINE TENDER Visits 0 Evaluation Information Evaluation Date 07/08/18 Precautions Precautions Hx bladder cancer; just hit 5 year cancer free anniversary, Hx right TKA PT-OP-B Current Condition Start: 07/08/18 11:14 Freq: Status: Active Protocol: Document 07/08/18 11:15 [facility] (Rec: 07/08/18 12:08 SAK [id number]) Current Condition History of Current Condition Onset Date 4 yrs Current Complaints LBP, anterior hip/groin pain, medial bilateral LE pain History of Current Condition Has had persistent, worsening pain. Has seen a chiropractor recently with some relief (70 % 3-4 days). Wants combination land and aquatic PT to do what he can to avoid surgery. No good position for pain relief. Prior PT focused on soft tissue relief, manual therapy anteriorly not helpful. 5 years clear of bladder CA. MRI shows miltilevel degenerative disc disease, multilevel facet arthropathy, severe L4-5 central canal narrowing, mild L1-2 central canal narrowing. Severe bilateral L4-5 neural foraminal narrowing, severe right and mild left L5-S1 neural foraminal narrowing. Moderate bilateral L3-4 neural foraminal narrowing, mild bilateral L2-L3 neural foraminal narrowing. Future Testing and Treatments Planned Waiting for consult at [facility] Treatment Goals Patient/Caregiver Goals Minimize pain, improve his function, avoid back surgery. Prior Functional Status Baseline Function- ADL's Independent Baseline Function- Mobility Independent Baseline Function- Gait indep Baseline Function- Recreation/Hobbies No limitations Current Functional Impairments (Reported) Functional Limitations- ADL's painful Functional Limitations- Mobility/Gait painful, limited to short distance community Functional Limitations- Recreation/ painful, unable Hobbies Personal Factors Other Personal Factors That May Effect obesity: BMI 41 Therapy/Recovery PT-OP-C Subjective Start: 07/08/18 11:14 Freq: Status: Active Protocol: Document 07/09/18 10:16 SAK (Rec: 07/09/18 11:13 SAK [id number]) OP-PT Subjective Patient Comments Patient Comments Reports very painful by evening sitting in recliner. PT-OP-G Mobility & Gait Start: 07/08/18 11:14 Freq: Status: Active Protocol: Document 07/08/18 11:15 SAK (Rec: 07/08/18 14:04 [facility] [id number]) OP Mobility Evaluation Bed Mobility Rolling painful Supine to and from Sit painful Transfers Sit to Stand painful with increased lumbar lordosis OP Gait Assessment Gait Gait Assistance Required: Independent Assistive Devices Assistive Device None Gait Deviations General Gait Pattern Wide Based Gait Comments Gait Comments ER bernadette LE's, increased lumbar lordosis, increased thoracic kyphosis, forward head PT-OP-J Posture/Palpation/Skin Start: 07/08/18 11:14 Freq: Status: Active Protocol: Document 07/08/18 11:15 SAK (Rec: 07/08/18 14:04 [facility] [id number]) Posture Evaluation Position Standing Head/C-Spine Posture Forward Head T-Spine Posture Increased Kyphosis L-Spine Posture Increased Lordosis Palpation Assessment Location Two Palpation Location lumbar parspinals Palpation Findings Soft Tissue Tightness Tenderness PT-OP-K Range of Motion Start: 07/08/18 11:14 Freq: Status: Active Protocol: Document 07/08/18 11:15 SAK (Rec: 07/08/18 14:04 [facility] [id number]) Lumbar Spine Range of Motion Lumbar Spine Active Testing Position Standing Extension 20 Rotation Left 30 Rotation Right 30 Lateral Flexion Left 25 Lateral Flexion Right 25 Comments forward flexion of trunk to 80 deg but with minimal movement in lumbar spine; majority of movement occurs at hips Hip Goniometric Range of Motion Hip Measured in Degrees bernadette Testing Position Supine Flexion w/Knee Flexed 100 Straight Leg Raise 65 Extension 0 Internal Rotation 10 External Rotation 35 Hip ROM Limitations Hip ROM Limitations Soft Tissue Tightness Pain Knee Goniometric Range of Motion Knee Measured in Degrees Right Knee ROM WFL Yes Left Knee ROM WFL Yes PT-OP-M Strength Start: 07/08/18 11:14 Freq: Status: Active Protocol: Document 07/08/18 11:15 SAK (Rec: 07/08/18 14:04 [facility] [id number]) Trunk Strength Trunk Manual Muscle Testing Core Stabilization poor activation of TrA, multifidi Hip Strength Hip Manual Muscle Testing bernadette Flexion (L2) 4 Good Extension (S1) 3+ Fair+ Abduction 4 Good External Rotation 4- Good- Internal Rotation 4 Good Knee Strength Knee Manual Muscle Testing bernadette Flexion (S2) 5 Normal Extension (L3) 5 Normal Ankle/Foot Strength Ankle and Foot Manual Muscle Testing Right Dorsiflexion (L4) 5 Normal Plantarflexion (S1) 5 Normal Left Dorsiflexion (L4) 5 Normal Plantarflexion (S1) 5 Normal PT-OP-Q Treatments Start: 07/08/18 11:14 Freq: Status: Active Protocol: Document 07/09/18 10:16 SAMY (Rec: 07/09/18 11:13 [facility] [id number]) Cardio Equipment Recumbent Stepper (Sci-Fit) Duration (Minutes) 8 Resistance 2 Seat Position 14 Gym Equipment Therapeutic Ball pelvic tilts Exercise Details A/P, side/side, circles Ball Size/Color 75 cm Body Position Sitting Reps/Duration 10x ea Comments verbal and manual cues Therapeutic Exercises Supine Exercises dbl leg lowering Supine Exercise Name with TrA Reps/Minutes 10x september Supine Exercise Name with TrA Reps/Minutes 10x TrA with hamstring set Equipment Used 65 cm therapy ball Reps/Minutes 10x sequential bridge Reps/Minutes 10x Pelvic tilt Reps/Minutes 10x Standing Exercises postural isometric Reps/Minutes 5x Self-Care/Home Management Treatment Education Patient Education Home Exercise Program Posture Other Education updated written HEP PT-OP-T Assessment and Plan Start: 07/08/18 11:14 Freq: Status: Active Protocol: Document 07/09/18 10:16 SAMY (Rec: 07/09/18 11:13 [facility] [id number]) Physical Therapy Assessment Goals Four Impairment posture Short Term Goal (STG) Patient will demonstrate good understanding of neutral posture and be able to correct his posture with minimal verbal and manual cues STG Duration 6 wks Assembler Bonding Goal (LTG) Patient will demonstrate ability to self-correct posture with no cues consistently LTG Duration 3 months Three Impairment strength/core stab Short Term Goal (STG) Patient to demonstrate good understanding of HEP and be compliant with HEP with emphasis on core stab and strengthening STG Duration 6 wks Assembler Bonding Goal (LTG) Patient to demonstrate good core stabilization with functional mobility skills LTG Duration 3 months Two Impairment activity tolerance Short Term Goal (STG) Decrease Oswestry disability index score to no greater than 30% STG Duration 6 wks Prison Goal (LTG) Decrease Oswestry Disability Index score to no greater than 15% and return to usual activities without pain LTG Duration 3 months One Impairment painful functional mobility Short Term Goal (STG) Patient will be able to roll over in bed with minimal to no pain STG Duration 6 wks Assembler Bonding Goal (LTG) Patient will be able to perform all transfers and walk community distances with minimal to no pain. LTG Duration 3 months Physical Therapy Plan Next Visit Focus/Plan Next Note Type Treatment Note Next Visit Plan Progress ther ex for core stabilization and strengthening. possible ultrasound and manual therapy in prone as tolerated and indicated.
--- NOTE | 2018-07-16 14:39 | PT.OPPOC ---
Current Diagnoses Arthropathy, unspecified (07/16/18) Other intervertebral disc degeneration, lumbar region (07/16/18) Intervertebral disc stenosis of neural canal of lumbar region (07/16/18) Provider Visit Care Team Role Provider Type Esteban Garcia MD Family Provider Physician Primary Care Provider Specialty: Internal Medicine Address: [address] [place] [address] Email: Luis Dahl MD Attending Provider Physician Specialty: Wound Care Address: [address] [place] [address], [facility] Email: [email or web address] Plan Of Care PT-OP-T Assessment and Plan Start: 07/08/18 11:14 Freq: Status: Active Protocol: Document 07/09/18 10:16 SAK (Rec: 07/09/18 11:13 SAK [id number]) Physical Therapy Assessment Goals Four Impairment posture Short Term Goal (STG) Patient will demonstrate good understanding of neutral posture and be able to correct his posture with minimal verbal and manual cues STG Duration 6 wks Prison Goal (LTG) Patient will demonstrate ability to self-correct posture with no cues consistently LTG Duration 3 months Three Impairment strength/core stab Short Term Goal (STG) Patient to demonstrate good understanding of HEP and be compliant with HEP with emphasis on core stab and strengthening STG Duration 6 wks Consulting Technical Director Goal (LTG) Patient to demonstrate good core stabilization with functional mobility skills LTG Duration 3 months Two Impairment activity tolerance Short Term Goal (STG) Decrease Oswestry disability index score to no greater than 30% STG Duration 6 wks Consulting Technical Director Goal (LTG) Decrease Oswestry Disability Index score to no greater than 15% and return to usual activities without pain LTG Duration 3 months One Impairment painful functional mobility Short Term Goal (STG) Patient will be able to roll over in bed with minimal to no pain STG Duration 6 wks Consulting Technical Director Goal (LTG) Patient will be able to perform all transfers and walk community distances with minimal to no pain. LTG Duration 3 months Assessment Summary Assessment Frequent verbal and manual cues for patient's postural alignment and core stabilization, has difficulty achieving posterior pelvic tilt, core musculature fatigues quickly Physical Therapy Plan Frequency and Duration Frequency of Treatment 2x/Week Duration of Treatment 3 months Plan of Care Start Date 07/08/18 Plan of Care End Date 10/06/18 Therapeutic Interventions Therapeutic Interventions Aquatic Therapy Home Exercise Program Manual Therapy Neuromuscular Re-education Patient/Caregiver Education Self-Care/Home Management Soft Tissue Mobilization Taping Therapeutic Activities Therapeutic Exercises Modalities Cold Pack/Ice Massage Electric Stimulation Hot Packs Ultrasound Next Visit Focus/Plan Next Note Type Treatment Note Next Visit Plan Progress ther ex for core stabilization and strengthening, continue combination land and aquatic PT. Plan of Care Dates Plan of Care Start Date 07/08/18 Plan of Care End Date 10/06/18 Please Sign and Return: I have reviewed this Plan of Care and certify that the skilled therapy services above are required to meet the patient?s needs. Physician Signature Date Printed Name and Credentials Clinical Instructor Signature Printed Name and Credentials
--- NOTE | 2018-07-16 14:47 | PT.OTN ---
Current Diagnoses Arthropathy, unspecified (07/16/18) Other intervertebral disc degeneration, lumbar region (07/16/18) Intervertebral disc stenosis of neural canal of lumbar region (07/16/18) Physical Therapy Treatment Note PT-OP-A Visit Information Start: 07/08/18 11:14 Freq: Status: Active Protocol: Document 07/15/18 11:13 [facility] (Rec: 07/15/18 12:05 SAK [id number]) Out-Patient Physical Therapy Visit Information Visit Information Visit Type Treatment Note Visit Start Time 11:15 Visit Stop Time 12:05 Total Visit Minutes 50 Visit Number 3 Number of ED TRANSPORTER Visits 0 Evaluation Information Evaluation Date 07/08/18 Precautions Precautions Hx bladder cancer; just hit 5 year cancer free anniversary, Hx right TKA PT-OP-B Current Condition Start: 07/08/18 11:14 Freq: Status: Active Protocol: Document 07/08/18 11:15 [facility] (Rec: 07/08/18 12:08 [facility] [id number]) Current Condition History of Current Condition Onset Date 4 yrs Current Complaints LBP, anterior hip/groin pain, medial bilateral LE pain History of Current Condition Has had persistent, worsening pain. Has seen a chiropractor recently with some relief (70 % 3-4 days). Wants combination land and aquatic PT to do what he can to avoid surgery. No good position for pain relief. Prior PT focused on soft tissue relief, manual therapy anteriorly not helpful. 5 years clear of bladder CA. MRI shows miltilevel degenerative disc disease, multilevel facet arthropathy, severe L4-5 central canal narrowing, mild L1-2 central canal narrowing. Severe bilateral L4-5 neural foraminal narrowing, severe right and mild left L5-S1 neural foraminal narrowing. Moderate bilateral L3-4 neural foraminal narrowing, mild bilateral L2-L3 neural foraminal narrowing. Future Testing and Treatments Planned Waiting for consult at [facility] Treatment Goals Patient/Caregiver Goals Minimize pain, improve his function, avoid back surgery. Prior Functional Status Baseline Function- ADL's Independent Baseline Function- Mobility Independent Baseline Function- Gait indep Baseline Function- Recreation/Hobbies No limitations Current Functional Impairments (Reported) Functional Limitations- ADL's painful Functional Limitations- Mobility/Gait painful, limited to short distance community Functional Limitations- Recreation/ painful, unable Hobbies Personal Factors Other Personal Factors That May Effect obesity: BMI 41 Therapy/Recovery PT-OP-C Subjective Start: 07/08/18 11:14 Freq: Status: Active Protocol: Document 07/15/18 11:13 SAK (Rec: 07/15/18 12:05 SAK [id number]) OP-PT Subjective Patient Comments Patient Comments For 2 days after last session feeling better, then 2 nights of pain and poor sleep. Went to chiropractor and did extended exercise in pool yesterday and had bad night last night. Has not tried ice or heat. Has done HEP 1x. PT-OP-G Mobility & Gait Start: 07/08/18 11:14 Freq: Status: Active Protocol: Document 07/08/18 11:15 SAK (Rec: 07/08/18 14:04 SAK [id number]) OP Mobility Evaluation Bed Mobility Rolling painful Supine to and from Sit painful Transfers Sit to Stand painful with increased lumbar lordosis OP Gait Assessment Gait Gait Assistance Required: Independent Assistive Devices Assistive Device None Gait Deviations General Gait Pattern Wide Based Gait Comments Gait Comments ER bernadette LE's, increased lumbar lordosis, increased thoracic kyphosis, forward head PT-OP-J Posture/Palpation/Skin Start: 07/08/18 11:14 Freq: Status: Active Protocol: Document 07/08/18 11:15 SAK (Rec: 07/08/18 14:04 [facility] [id number]) Posture Evaluation Position Standing Head/C-Spine Posture Forward Head T-Spine Posture Increased Kyphosis L-Spine Posture Increased Lordosis Palpation Assessment Location Two Palpation Location lumbar parspinals Palpation Findings Soft Tissue Tightness Tenderness PT-OP-K Range of Motion Start: 07/08/18 11:14 Freq: Status: Active Protocol: Document 07/08/18 11:15 SAK (Rec: 07/08/18 14:04 [facility] [id number]) Lumbar Spine Range of Motion Lumbar Spine Active Testing Position Standing Extension 20 Rotation Left 30 Rotation Right 30 Lateral Flexion Left 25 Lateral Flexion Right 25 Comments forward flexion of trunk to 80 deg but with minimal movement in lumbar spine; majority of movement occurs at hips Hip Goniometric Range of Motion Hip Measured in Degrees bernadette Testing Position Supine Flexion w/Knee Flexed 100 Straight Leg Raise 65 Extension 0 Internal Rotation 10 External Rotation 35 Hip ROM Limitations Hip ROM Limitations Soft Tissue Tightness Pain Knee Goniometric Range of Motion Knee Measured in Degrees Right Knee ROM WFL Yes Left Knee ROM WFL Yes PT-OP-M Strength Start: 07/08/18 11:14 Freq: Status: Active Protocol: Document 07/08/18 11:15 [facility] (Rec: 07/08/18 14:04 [facility] [id number]) Trunk Strength Trunk Manual Muscle Testing Core Stabilization poor activation of TrA, multifidi Hip Strength Hip Manual Muscle Testing bernadette Flexion (L2) 4 Good Extension (S1) 3+ Fair+ Abduction 4 Good External Rotation 4- Good- Internal Rotation 4 Good Knee Strength Knee Manual Muscle Testing bernadette Flexion (S2) 5 Normal Extension (L3) 5 Normal Ankle/Foot Strength Ankle and Foot Manual Muscle Testing Right Dorsiflexion (L4) 5 Normal Plantarflexion (S1) 5 Normal Left Dorsiflexion (L4) 5 Normal Plantarflexion (S1) 5 Normal PT-OP-Q Treatments Start: 07/08/18 11:14 Freq: Status: Active Protocol: Document 07/15/18 11:13 SAMY (Rec: 07/15/18 12:05 [facility] [id number]) Cardio Equipment Recumbent Stepper (Sci-Fit) Duration (Minutes) 8 Resistance 3 Seat Position 13 Gym Equipment Therapeutic Ball pelvic tilts Exercise Details A/P, side/side, circles Ball Size/Color 75 cm Body Position Sitting Reps/Duration 10x ea Comments verbal and manual cues Therapeutic Exercises Supine Exercises dbl leg lowering Equipment Used 65 cm march Supine Exercise Name with TrA Reps/Minutes 10x TrA with hamstring set Equipment Used 65 cm therapy ball Reps/Minutes 10x sequential bridge Reps/Minutes 10x Pelvic tilt Reps/Minutes 10x Standing Exercises postural isometric Reps/Minutes 10x 6 Standing Exercise Name squats Equipment Used yardstick Reps/Minutes 10x Self-Care/Home Management Treatment Education Patient Education Body Mechanics Home Exercise Program Posture PT-OP-T Assessment and Plan Start: 07/08/18 11:14 Freq: Status: Active Protocol: Document 07/15/18 11:13 SAMY (Rec: 07/09/18 11:13 [facility] [id number]) Physical Therapy Assessment Goals Four Impairment posture Short Term Goal (STG) Patient will demonstrate good understanding of neutral posture and be able to correct his posture with minimal verbal and manual cues STG Duration 6 wks Team Coordinator Goal (LTG) Patient will demonstrate ability to self-correct posture with no cues consistently LTG Duration 3 months Three Impairment strength/core stab Short Term Goal (STG) Patient to demonstrate good understanding of HEP and be compliant with HEP with emphasis on core stab and strengthening STG Duration 6 wks Team Coordinator Goal (LTG) Patient to demonstrate good core stabilization with functional mobility skills LTG Duration 3 months Two Impairment activity tolerance Short Term Goal (STG) Decrease Oswestry disability index score to no greater than 30% STG Duration 6 wks Team Coordinator Goal (LTG) Decrease Oswestry Disability Index score to no greater than 15% and return to usual activities without pain LTG Duration 3 months One Impairment painful functional mobility Short Term Goal (STG) Patient will be able to roll over in bed with minimal to no pain STG Duration 6 wks Senior Care Goal (LTG) Patient will be able to perform all transfers and walk community distances with minimal to no pain. LTG Duration 3 months Assessment Summary Assessment Frequent verbal and manual cues for patient's postural alignment and core stabilization, has difficulty achieving posterior pelvic tilt, core musculature fatigues quickly Physical Therapy Plan Frequency and Duration Frequency of Treatment 2x/Week Duration of Treatment 3 months Plan of Care Start Date 07/08/18 Plan of Care End Date 10/06/18 Therapeutic Interventions Therapeutic Interventions Aquatic Therapy Home Exercise Program Manual Therapy Neuromuscular Re-education Patient/Caregiver Education Self-Care/Home Management Soft Tissue Mobilization Taping Therapeutic Activities Therapeutic Exercises Modalities Cold Pack/Ice Massage Electric Stimulation Hot Packs Ultrasound Next Visit Focus/Plan Next Note Type Treatment Note Next Visit Plan Progress ther ex for core stabilization and strengthening, continue combination land and aquatic PT.
--- NOTE | 2018-07-26 14:45 | PT.OTN ---
Current Diagnoses Arthropathy, unspecified (07/26/18) Other intervertebral disc degeneration, lumbar region (07/26/18) Intervertebral disc stenosis of neural canal of lumbar region (07/26/18) Physical Therapy Treatment Note PT-OP-A Visit Information Start: 07/08/18 11:14 Freq: Status: Active Protocol: Document 07/26/18 11:45 LJ (Rec: 07/26/18 14:44 LJ [id number]) Out-Patient Physical Therapy Visit Information Visit Information Visit Type Aquatic Treatment Note Visit Start Time 11:45 Visit Stop Time 12:30 Total Visit Minutes 45 Visit Number 4 Number of SUPERMARKET MANAGER Visits 1 PT-OP-B Current Condition Start: 07/08/18 11:14 Freq: Status: Active Protocol: Document 07/08/18 11:15 SAK (Rec: 07/08/18 12:08 SAK [id number]) Current Condition History of Current Condition Onset Date 4 yrs Current Complaints LBP, anterior hip/groin pain, medial bilateral LE pain History of Current Condition Has had persistent, worsening pain. Has seen a chiropractor recently with some relief (70 % 3-4 days). Wants combination land and aquatic PT to do what he can to avoid surgery. No good position for pain relief. Prior PT focused on soft tissue relief, manual therapy anteriorly not helpful. 5 years clear of bladder CA. MRI shows miltilevel degenerative disc disease, multilevel facet arthropathy, severe L4-5 central canal narrowing, mild L1-2 central canal narrowing. Severe bilateral L4-5 neural foraminal narrowing, severe right and mild left L5-S1 neural foraminal narrowing. Moderate bilateral L3-4 neural foraminal narrowing, mild bilateral L2-L3 neural foraminal narrowing. Future Testing and Treatments Planned Waiting for consult at [facility] Treatment Goals Patient/Caregiver Goals Minimize pain, improve his function, avoid back surgery. Prior Functional Status Baseline Function- ADL's Independent Baseline Function- Mobility Independent Baseline Function- Gait indep Baseline Function- Recreation/Hobbies No limitations Current Functional Impairments (Reported) Functional Limitations- ADL's painful Functional Limitations- Mobility/Gait painful, limited to short distance community Functional Limitations- Recreation/ painful, unable Hobbies Personal Factors Other Personal Factors That May Effect obesity: BMI 41 Therapy/Recovery PT-OP-C Subjective Start: 07/08/18 11:14 Freq: Status: Active Protocol: Document 07/15/18 11:13 [facility] (Rec: 07/15/18 12:05 [facility] [id number]) OP-PT Subjective Patient Comments Patient Comments For 2 days after last session feeling better, then 2 nights of pain and poor sleep. Went to chiropractor and did extended exercise in pool yesterday and had bad night last night. Has not tried ice or heat. Has done HEP 1x. PT-OP-G Mobility & Gait Start: 07/08/18 11:14 Freq: Status: Active Protocol: Document 07/08/18 11:15 SAK (Rec: 07/08/18 14:04 [facility] [id number]) OP Mobility Evaluation Bed Mobility Rolling painful Supine to and from Sit painful Transfers Sit to Stand painful with increased lumbar lordosis OP Gait Assessment Gait Gait Assistance Required: Independent Assistive Devices Assistive Device None Gait Deviations General Gait Pattern Wide Based Gait Comments Gait Comments ER bernadette LE's, increased lumbar lordosis, increased thoracic kyphosis, forward head PT-OP-J Posture/Palpation/Skin Start: 07/08/18 11:14 Freq: Status: Active Protocol: Document 07/08/18 11:15 [facility] (Rec: 07/08/18 14:04 [facility] [id number]) Posture Evaluation Position Standing Head/C-Spine Posture Forward Head T-Spine Posture Increased Kyphosis L-Spine Posture Increased Lordosis Palpation Assessment Location Two Palpation Location lumbar parspinals Palpation Findings Soft Tissue Tightness Tenderness PT-OP-K Range of Motion Start: 07/08/18 11:14 Freq: Status: Active Protocol: Document 07/08/18 11:15 SAK (Rec: 07/08/18 14:04 [facility] [id number]) Lumbar Spine Range of Motion Lumbar Spine Active Testing Position Standing Extension 20 Rotation Left 30 Rotation Right 30 Lateral Flexion Left 25 Lateral Flexion Right 25 Comments forward flexion of trunk to 80 deg but with minimal movement in lumbar spine; majority of movement occurs at hips Hip Goniometric Range of Motion Hip Measured in Degrees bernadette Testing Position Supine Flexion w/Knee Flexed 100 Straight Leg Raise 65 Extension 0 Internal Rotation 10 External Rotation 35 Hip ROM Limitations Hip ROM Limitations Soft Tissue Tightness Pain Knee Goniometric Range of Motion Knee Measured in Degrees Right Knee ROM WFL Yes Left Knee ROM WFL Yes PT-OP-M Strength Start: 07/08/18 11:14 Freq: Status: Active Protocol: Document 07/08/18 11:15 SAK (Rec: 07/08/18 14:04 SAK [id number]) Trunk Strength Trunk Manual Muscle Testing Core Stabilization poor activation of TrA, multifidi Hip Strength Hip Manual Muscle Testing bernadette Flexion (L2) 4 Good Extension (S1) 3+ Fair+ Abduction 4 Good External Rotation 4- Good- Internal Rotation 4 Good Knee Strength Knee Manual Muscle Testing bernadette Flexion (S2) 5 Normal Extension (L3) 5 Normal Ankle/Foot Strength Ankle and Foot Manual Muscle Testing Right Dorsiflexion (L4) 5 Normal Plantarflexion (S1) 5 Normal Left Dorsiflexion (L4) 5 Normal Plantarflexion (S1) 5 Normal PT-OP-Q Treatments Start: 07/08/18 11:14 Freq: Status: Active Protocol: Document 07/15/18 11:13 SAK (Rec: 07/15/18 12:05 SAK [id number]) Cardio Equipment Recumbent Stepper (Sci-Fit) Duration (Minutes) 8 Resistance 3 Seat Position 13 Gym Equipment Therapeutic Ball pelvic tilts Exercise Details A/P, side/side, circles Ball Size/Color 75 cm Body Position Sitting Reps/Duration 10x ea Comments verbal and manual cues Therapeutic Exercises Supine Exercises dbl leg lowering Equipment Used 65 cm september Supine Exercise Name with TrA Reps/Minutes 10x TrA with hamstring set Equipment Used 65 cm therapy ball Reps/Minutes 10x sequential bridge Reps/Minutes 10x Pelvic tilt Reps/Minutes 10x Standing Exercises postural isometric Reps/Minutes 10x 6 Standing Exercise Name squats Equipment Used yardstick Reps/Minutes 10x Self-Care/Home Management Treatment Education Patient Education Body Mechanics Home Exercise Program Posture PT-OP-S Aquatic Treatment Start: 07/08/18 11:14 Freq: Status: Active Protocol: Document 07/26/18 11:45 LJ (Rec: 07/26/18 14:44 LJ [id number]) Aquatics Treatment Pool Entry/Exit Pool Entry/Exit Method Stairs Assistance Independent Comments stretches back on exit Water Walking Backwards Water Level Chest Level Level of Assistance Verbal Cues Comments VC for glute activation w/o lordosis Monster Walk Water Level Chest Level Level of Assistance Verbal Cues Sideways Water Level Chest Level Level of Assistance Verbal Cues Comments lacks core activation Forwards Water Level Chest Level Level of Assistance Verbal Cues Comments lacks core activation Lunge Walk Water Level Chest Level Level of Assistance Verbal Cues Comments lacks core activation Spinal Exercises 2 Details pelvic tilts on wall Body Position Standing Water Level Chest Level Reps/Duration x25 Comments VCs for TrA activation; manual cues for posterior pelvic tilt [place] Activities [place] Activities Bicycle [place] Hip Abduction/Adduction Sit Kicks Other Activities Corner SLR x 5: 10 sec raise, lower, and hold LB stretch on ladder 2nd step 30 sec hold x 2 Equipment BB Duration 15 min Comments Pt lacks core control during transitional motions. PT-OP-T Assessment and Plan Start: 07/08/18 11:14 Freq: Status: Active Protocol: Document 07/26/18 11:45 LJ (Rec: 07/26/18 14:44 LJ [email or web address]) Physical Therapy Assessment Rehab Potential Rehabilitation Potential Excellent Evaluation Complexity Number of Personal Factors/Comorbidities 1-2 Number of Body Systems Impaired 3 Clinical Presentation at Evaluation Evolving Impairments Impairments Activity Tolerance Functional Mobility Gait Pain Posture Strength Goals Four Impairment posture Short Term Goal (STG) Patient will demonstrate good understanding of neutral posture and be able to correct his posture with minimal verbal and manual cues STG Duration 6 wks Foster Parent Goal (LTG) Patient will demonstrate ability to self-correct posture with no cues consistently LTG Duration 3 months Three Impairment strength/core stab Short Term Goal (STG) Patient to demonstrate good understanding of HEP and be compliant with HEP with emphasis on core stab and strengthening STG Duration 6 wks [facility] Goal (LTG) Patient to demonstrate good core stabilization with functional mobility skills LTG Duration 3 months Two Impairment activity tolerance Short Term Goal (STG) Decrease Oswestry disability index score to no greater than 30% STG Duration 6 wks [facility] Goal (LTG) Decrease Oswestry Disability Index score to no greater than 15% and return to usual activities without pain LTG Duration 3 months One Impairment painful functional mobility Short Term Goal (STG) Patient will be able to roll over in bed with minimal to no pain STG Duration 6 wks Foster Parent Goal (LTG) Patient will be able to perform all transfers and walk community distances with minimal to no pain. LTG Duration 3 months Assessment Summary Assessment Frequent verbal and manual cues for patient's postural alignment and core stabilization, has difficulty achieving posterior pelvic tilt, core musculature fatigues quickly Physical Therapy Plan Frequency and Duration Frequency of Treatment 2x/Week Duration of Treatment 3 months Plan of Care Start Date 07/08/18 Plan of Care End Date 10/06/18 Therapeutic Interventions Therapeutic Interventions Aquatic Therapy Home Exercise Program Manual Therapy Neuromuscular Re-education Patient/Caregiver Education Self-Care/Home Management Soft Tissue Mobilization Taping Therapeutic Activities Therapeutic Exercises Modalities Cold Pack/Ice Massage Electric Stimulation Hot Packs Ultrasound Next Visit Focus/Plan Next Note Type Treatment Note Next Visit Plan Progress ther ex for core stabilization and strengthening, continue combination land and aquatic PT.
--- NOTE | 2018-07-26 16:35 | PT.OTN ---
Current Diagnoses Arthropathy, unspecified (07/26/18) Other intervertebral disc degeneration, lumbar region (07/26/18) Intervertebral disc stenosis of neural canal of lumbar region (07/26/18) Physical Therapy Treatment Note PT-OP-A Visit Information Start: 07/08/18 11:14 Freq: Status: Active Protocol: Document 07/26/18 11:45 LJ (Rec: 07/26/18 14:44 LJ [email or web address]) Out-Patient Physical Therapy Visit Information Visit Information Visit Type Aquatic Treatment Note Visit Start Time 11:45 Visit Stop Time 12:30 Total Visit Minutes 45 Visit Number 4 Number of REFRIGERATION TECH Visits 1 PT-OP-B Current Condition Start: 07/08/18 11:14 Freq: Status: Active Protocol: Document 07/08/18 11:15 SAK (Rec: 07/08/18 12:08 SAK [id number]) Current Condition History of Current Condition Onset Date 4 yrs Current Complaints LBP, anterior hip/groin pain, medial bilateral LE pain History of Current Condition Has had persistent, worsening pain. Has seen a chiropractor recently with some relief (70 % 3-4 days). Wants combination land and aquatic PT to do what he can to avoid surgery. No good position for pain relief. Prior PT focused on soft tissue relief, manual therapy anteriorly not helpful. 5 years clear of bladder CA. MRI shows miltilevel degenerative disc disease, multilevel facet arthropathy, severe L4-5 central canal narrowing, mild L1-2 central canal narrowing. Severe bilateral L4-5 neural foraminal narrowing, severe right and mild left L5-S1 neural foraminal narrowing. Moderate bilateral L3-4 neural foraminal narrowing, mild bilateral L2-L3 neural foraminal narrowing. Future Testing and Treatments Planned Waiting for consult at [facility] Treatment Goals Patient/Caregiver Goals Minimize pain, improve his function, avoid back surgery. Prior Functional Status Baseline Function- ADL's Independent Baseline Function- Mobility Independent Baseline Function- Gait indep Baseline Function- Recreation/Hobbies No limitations Current Functional Impairments (Reported) Functional Limitations- ADL's painful Functional Limitations- Mobility/Gait painful, limited to short distance community Functional Limitations- Recreation/ painful, unable Hobbies Personal Factors Other Personal Factors That May Effect obesity: BMI 41 Therapy/Recovery PT-OP-C Subjective Start: 07/08/18 11:14 Freq: Status: Active Protocol: Document 07/26/18 14:44 LJ (Rec: 07/26/18 14:45 LJ [email or web address]) OP-PT Subjective Patient Comments Patient Comments no c/o pain. 07/26/18 14:45 PT OP Treatment Note by Shannan Elizondo Current Diagnoses Arthropathy, unspecified (07/26/18) Other intervertebral disc degeneration, lumbar region (07/26/18) Intervertebral disc stenosis of neural canal of lumbar region (07/26/18) Physical Therapy Treatment Note PT-OP-A Visit Information Start: 07/08/18 11:14 Freq: Status: Active Protocol: Document 07/26/18 11:45 LJ (Rec: 07/26/18 14:44 LJ [email or web address]) Out-Patient Physical Therapy Visit Information Visit Information Visit Type Aquatic Treatment Note Visit Start Time 11:45 Visit Stop Time 12:30 Total Visit Minutes 45 Visit Number 4 Number of REFRIGERATION TECH Visits 1 PT-OP-B Current Condition Start: 07/08/18 11:14 Freq: Status: Active Protocol: Document 07/08/18 11:15 SAK (Rec: 07/08/18 12:08 SAK [id number]) Current Condition History of Current Condition Onset Date 4 yrs Current Complaints LBP, anterior hip/groin pain, medial bilateral LE pain History of Current Condition Has had persistent, worsening pain. Has seen a chiropractor recently with some relief (70 % 3-4 days). Wants combination land and aquatic PT to do what he can to avoid surgery. No good position for pain relief. Prior PT focused on soft tissue relief, manual therapy anteriorly not helpful. 5 years clear of bladder CA. MRI shows miltilevel degenerative disc disease, multilevel facet arthropathy, severe L4-5 central canal narrowing, mild L1-2 central canal narrowing. Severe bilateral L4-5 neural foraminal narrowing, severe right and mild left L5-S1 neural foraminal narrowing. Moderate bilateral L3-4 neural foraminal narrowing, mild bilateral L2-L3 neural foraminal narrowing. Future Testing and Treatments Planned Waiting for consult at [facility] Treatment Goals Patient/Caregiver Goals Minimize pain, improve his function, avoid back surgery. Prior Functional Status Baseline Function- ADL's Independent Baseline Function- Mobility Independent Baseline Function- Gait indep Baseline Function- Recreation/Hobbies No limitations Current Functional Impairments (Reported) Functional Limitations- ADL's painful Functional Limitations- Mobility/Gait painful, limited to short distance community Functional Limitations- Recreation/ painful, unable Hobbies Personal Factors Other Personal Factors That May Effect obesity: BMI 41 Therapy/Recovery PT-OP-C Subjective Start: 07/08/18 11:14 Freq: Status: Active Protocol: Document 07/15/18 11:13 SAK (Rec: 07/15/18 12:05 SAK [id number]) OP-PT Subjective Patient Comments Patient Comments For 2 days after last session feeling better, then 2 nights of pain and poor sleep. Went to chiropractor and did extended exercise in pool yesterday and had bad night last night. Has not tried ice or heat. Has done HEP 1x. PT-OP-G Mobility & Gait Start: 07/08/18 11:14 Freq: Status: Active Protocol: Document 07/08/18 11:15 SAK (Rec: 07/08/18 14:04 [facility] [id number]) OP Mobility Evaluation Bed Mobility Rolling painful Supine to and from Sit painful Transfers Sit to Stand painful with increased lumbar lordosis OP Gait Assessment Gait Gait Assistance Required: Independent Assistive Devices Assistive Device None Gait Deviations General Gait Pattern Wide Based Gait Comments Gait Comments ER bernadette LE's, increased lumbar lordosis, increased thoracic kyphosis, forward head PT-OP-J Posture/Palpation/Skin Start: 07/08/18 11:14 Freq: Status: Active Protocol: Document 07/08/18 11:15 SAK (Rec: 07/08/18 14:04 [facility] [id number]) Posture Evaluation Position Standing Head/C-Spine Posture Forward Head T-Spine Posture Increased Kyphosis L-Spine Posture Increased Lordosis Palpation Assessment Location Two Palpation Location lumbar parspinals Palpation Findings Soft Tissue Tightness Tenderness PT-OP-K Range of Motion Start: 07/08/18 11:14 Freq: Status: Active Protocol: Document 07/08/18 11:15 SAK (Rec: 07/08/18 14:04 [facility] [id number]) Lumbar Spine Range of Motion Lumbar Spine Active Testing Position Standing Extension 20 Rotation Left 30 Rotation Right 30 Lateral Flexion Left 25 Lateral Flexion Right 25 Comments forward flexion of trunk to 80 deg but with minimal movement in lumbar spine; majority of movement occurs at hips Hip Goniometric Range of Motion Hip Measured in Degrees bernadette Testing Position Supine Flexion w/Knee Flexed 100 Straight Leg Raise 65 Extension 0 Internal Rotation 10 External Rotation 35 Hip ROM Limitations Hip ROM Limitations Soft Tissue Tightness Pain Knee Goniometric Range of Motion Knee Measured in Degrees Right Knee ROM WFL Yes Left Knee ROM WFL Yes PT-OP-M Strength Start: 07/08/18 11:14 Freq: Status: Active Protocol: Document 07/08/18 11:15 SAK (Rec: 07/08/18 14:04 [facility] [id number]) Trunk Strength Trunk Manual Muscle Testing Core Stabilization poor activation of TrA, multifidi Hip Strength Hip Manual Muscle Testing bernadette Flexion (L2) 4 Good Extension (S1) 3+ Fair+ Abduction 4 Good External Rotation 4- Good- Internal Rotation 4 Good Knee Strength Knee Manual Muscle Testing bernadette Flexion (S2) 5 Normal Extension (L3) 5 Normal Ankle/Foot Strength Ankle and Foot Manual Muscle Testing Right Dorsiflexion (L4) 5 Normal Plantarflexion (S1) 5 Normal Left Dorsiflexion (L4) 5 Normal Plantarflexion (S1) 5 Normal PT-OP-Q Treatments Start: 07/08/18 11:14 Freq: Status: Active Protocol: Document 07/15/18 11:13 [facility] (Rec: 07/15/18 12:05 [facility] [id number]) Cardio Equipment Recumbent Stepper (Sci-Fit) Duration (Minutes) 8 Resistance 3 Seat Position 13 Gym Equipment Therapeutic Ball pelvic tilts Exercise Details A/P, side/side, circles Ball Size/Color 75 cm Body Position Sitting Reps/Duration 10x ea Comments verbal and manual cues Therapeutic Exercises Supine Exercises dbl leg lowering Equipment Used 65 cm march Supine Exercise Name with TrA Reps/Minutes 10x TrA with hamstring set Equipment Used 65 cm therapy ball Reps/Minutes 10x sequential bridge Reps/Minutes 10x Pelvic tilt Reps/Minutes 10x Standing Exercises postural isometric Reps/Minutes 10x 6 Standing Exercise Name squats Equipment Used yardstick Reps/Minutes 10x Self-Care/Home Management Treatment Education Patient Education Body Mechanics Home Exercise Program Posture PT-OP-S Aquatic Treatment Start: 07/08/18 11:14 Freq: Status: Active Protocol: Document 07/26/18 11:45 JIN (Rec: 07/26/18 14:44 LJ [email or web address]) Aquatics Treatment Pool Entry/Exit Pool Entry/Exit Method Stairs Assistance Independent Comments stretches back on exit Water Walking Backwards Water Level Chest Level Level of Assistance Verbal Cues Comments VC for glute activation w/o lordosis Monster Walk Water Level Chest Level Level of Assistance Verbal Cues Sideways Water Level Chest Level Level of Assistance Verbal Cues Comments lacks core activation Forwards Water Level Chest Level Level of Assistance Verbal Cues Comments lacks core activation Lunge Walk Water Level Chest Level Level of Assistance Verbal Cues Comments lacks core activation Spinal Exercises 2 Details pelvic tilts on wall Body Position Standing Water Level Chest Level Reps/Duration x25 Comments VCs for TrA activation; manual cues for posterior pelvic tilt [place] Bicycle [place] Hip Abduction/Adduction Sit Kicks Other Activities Corner SLR x 5: 10 sec raise, lower, and hold LB stretch on ladder 2nd step 30 sec hold x 2 Equipment BB Duration 15 min Comments Pt lacks core control during transitional motions. PT-OP-T Assessment and Plan Start: 07/08/18 11:14 Freq: Status: Active Protocol: Document 07/26/18 11:45 JIN (Rec: 07/26/18 14:44 JIN [email or web address]) Physical Therapy Assessment Rehab Potential Rehabilitation Potential Excellent Evaluation Complexity Number of Personal Factors/Comorbidities 1-2 Number of Body Systems Impaired 3 Clinical Presentation at Evaluation Evolving Impairments Impairments Activity Tolerance Functional Mobility Gait Pain Posture Strength Goals Four Impairment posture Short Term Goal (STG) Patient will demonstrate good understanding of neutral posture and be able to correct his posture with minimal verbal and manual cues STG Duration 6 wks Volunteer Specialist Goal (LTG) Patient will demonstrate ability to self-correct posture with no cues consistently LTG Duration 3 months Three Impairment strength/core stab Short Term Goal (STG) Patient to demonstrate good understanding of HEP and be compliant with HEP with emphasis on core stab and strengthening STG Duration 6 wks Volunteer Specialist Goal (LTG) Patient to demonstrate good core stabilization with functional mobility skills LTG Duration 3 months Two Impairment activity tolerance Short Term Goal (STG) Decrease Oswestry disability index score to no greater than 30% STG Duration 6 wks Volunteer Specialist Goal (LTG) Decrease Oswestry Disability Index score to no greater than 15% and return to usual activities without pain LTG Duration 3 months One Impairment painful functional mobility Short Term Goal (STG) Patient will be able to roll over in bed with minimal to no pain STG Duration 6 wks Volunteer Specialist Goal (LTG) Patient will be able to perform all transfers and walk community distances with minimal to no pain. LTG Duration 3 months Assessment Summary Assessment Frequent verbal and manual cues for patient's postural alignment and core stabilization, has difficulty achieving posterior pelvic tilt, core musculature fatigues quickly Physical Therapy Plan Frequency and Duration Frequency of Treatment 2x/Week Duration of Treatment 3 months Plan of Care Start Date 07/08/18 Plan of Care End Date 10/06/18 Therapeutic Interventions Therapeutic Interventions Aquatic Therapy Home Exercise Program Manual Therapy Neuromuscular Re-education Patient/Caregiver Education Self-Care/Home Management Soft Tissue Mobilization Taping Therapeutic Activities Therapeutic Exercises Modalities Cold Pack/Ice Massage Electric Stimulation Hot Packs Ultrasound Next Visit Focus/Plan Next Note Type Treatment Note Next Visit Plan Progress ther ex for core stabilization and strengthening, continue combination land and aquatic PT. Initialized on 07/26/18 14:45 - END OF NOTE PT-OP-G Mobility & Gait Start: 07/08/18 11:14 Freq: Status: Active Protocol: Document 07/08/18 11:15 [facility] (Rec: 07/08/18 14:04 [facility] [id number]) OP Mobility Evaluation Bed Mobility Rolling painful Supine to and from Sit painful Transfers Sit to Stand painful with increased lumbar lordosis OP Gait Assessment Gait Gait Assistance Required: Independent Assistive Devices Assistive Device None Gait Deviations General Gait Pattern Wide Based Gait Comments Gait Comments ER bernadette LE's, increased lumbar lordosis, increased thoracic kyphosis, forward head PT-OP-J Posture/Palpation/Skin Start: 07/08/18 11:14 Freq: Status: Active Protocol: Document 07/08/18 11:15 [facility] (Rec: 07/08/18 14:04 [facility] [id number]) Posture Evaluation Position Standing Head/C-Spine Posture Forward Head T-Spine Posture Increased Kyphosis L-Spine Posture Increased Lordosis Palpation Assessment Location Two Palpation Location lumbar parspinals Palpation Findings Soft Tissue Tightness Tenderness PT-OP-K Range of Motion Start: 07/08/18 11:14 Freq: Status: Active Protocol: Document 07/08/18 11:15 SAK (Rec: 07/08/18 14:04 [facility] [id number]) Lumbar Spine Range of Motion Lumbar Spine Active Testing Position Standing Extension 20 Rotation Left 30 Rotation Right 30 Lateral Flexion Left 25 Lateral Flexion Right 25 Comments forward flexion of trunk to 80 deg but with minimal movement in lumbar spine; majority of movement occurs at hips Hip Goniometric Range of Motion Hip Measured in Degrees bernadette Testing Position Supine Flexion w/Knee Flexed 100 Straight Leg Raise 65 Extension 0 Internal Rotation 10 External Rotation 35 Hip ROM Limitations Hip ROM Limitations Soft Tissue Tightness Pain Knee Goniometric Range of Motion Knee Measured in Degrees Right Knee ROM WFL Yes Left Knee ROM WFL Yes PT-OP-M Strength Start: 07/08/18 11:14 Freq: Status: Active Protocol: Document 07/08/18 11:15 SAK (Rec: 07/08/18 14:04 SAK [id number]) Trunk Strength Trunk Manual Muscle Testing Core Stabilization poor activation of TrA, multifidi Hip Strength Hip Manual Muscle Testing bernadette Flexion (L2) 4 Good Extension (S1) 3+ Fair+ Abduction 4 Good External Rotation 4- Good- Internal Rotation 4 Good Knee Strength Knee Manual Muscle Testing bernadette Flexion (S2) 5 Normal Extension (L3) 5 Normal Ankle/Foot Strength Ankle and Foot Manual Muscle Testing Right Dorsiflexion (L4) 5 Normal Plantarflexion (S1) 5 Normal Left Dorsiflexion (L4) 5 Normal Plantarflexion (S1) 5 Normal PT-OP-Q Treatments Start: 07/08/18 11:14 Freq: Status: Active Protocol: Document 07/15/18 11:13 SAK (Rec: 07/15/18 12:05 SAK [id number]) Cardio Equipment Recumbent Stepper (Sci-Fit) Duration (Minutes) 8 Resistance 3 Seat Position 13 Gym Equipment Therapeutic Ball pelvic tilts Exercise Details A/P, side/side, circles Ball Size/Color 75 cm Body Position Sitting Reps/Duration 10x ea Comments verbal and manual cues Therapeutic Exercises Supine Exercises dbl leg lowering Equipment Used 65 cm september Supine Exercise Name with TrA Reps/Minutes 10x TrA with hamstring set Equipment Used 65 cm therapy ball Reps/Minutes 10x sequential bridge Reps/Minutes 10x Pelvic tilt Reps/Minutes 10x Standing Exercises postural isometric Reps/Minutes 10x 6 Standing Exercise Name squats Equipment Used yardstick Reps/Minutes 10x Self-Care/Home Management Treatment Education Patient Education Body Mechanics Home Exercise Program Posture PT-OP-S Aquatic Treatment Start: 07/08/18 11:14 Freq: Status: Active Protocol: Document 07/26/18 11:45 JIN (Rec: 07/26/18 14:44 LJ [email or web address]) Aquatics Treatment Pool Entry/Exit Pool Entry/Exit Method Stairs Assistance Independent Comments stretches back on exit Water Walking Backwards Water Level Chest Level Level of Assistance Verbal Cues Comments VC for glute activation w/o lordosis Monster Walk Water Level Chest Level Level of Assistance Verbal Cues Sideways Water Level Chest Level Level of Assistance Verbal Cues Comments lacks core activation Forwards Water Level Chest Level Level of Assistance Verbal Cues Comments lacks core activation Lunge Walk Water Level Chest Level Level of Assistance Verbal Cues Comments lacks core activation Spinal Exercises 2 Details pelvic tilts on wall Body Position Standing Water Level Chest Level Reps/Duration x25 Comments VCs for TrA activation; manual cues for posterior pelvic tilt [place] Activities Bicycle [place] Hip Abduction/Adduction Sit Kicks Other Activities Corner SLR x 5: 10 sec raise, lower, and hold LB stretch on ladder 2nd step 30 sec hold x 2 Equipment BB Duration 15 min Comments Pt lacks core control during transitional motions. PT-OP-T Assessment and Plan Start: 07/08/18 11:14 Freq: Status: Active Protocol: Document 07/26/18 11:45 JIN (Rec: 07/26/18 14:44 JIN [email or web address]) Physical Therapy Assessment Rehab Potential Rehabilitation Potential Excellent Evaluation Complexity Number of Personal Factors/Comorbidities 1-2 Number of Body Systems Impaired 3 Clinical Presentation at Evaluation Evolving Impairments Impairments Activity Tolerance Functional Mobility Gait Pain Posture Strength Goals Four Impairment posture Short Term Goal (STG) Patient will demonstrate good understanding of neutral posture and be able to correct his posture with minimal verbal and manual cues STG Duration 6 wks Volunteer Specialist Goal (LTG) Patient will demonstrate ability to self-correct posture with no cues consistently LTG Duration 3 months Three Impairment strength/core stab Short Term Goal (STG) Patient to demonstrate good understanding of HEP and be compliant with HEP with emphasis on core stab and strengthening STG Duration 6 wks Volunteer Specialist Goal (LTG) Patient to demonstrate good core stabilization with functional mobility skills LTG Duration 3 months Two Impairment activity tolerance Short Term Goal (STG) Decrease Oswestry disability index score to no greater than 30% STG Duration 6 wks Jail Goal (LTG) Decrease Oswestry Disability Index score to no greater than 15% and return to usual activities without pain LTG Duration 3 months One Impairment painful functional mobility Short Term Goal (STG) Patient will be able to roll over in bed with minimal to no pain STG Duration 6 wks Jail Goal (LTG) Patient will be able to perform all transfers and walk community distances with minimal to no pain. LTG Duration 3 months Assessment Summary Assessment Frequent verbal and manual cues for patient's postural alignment and core stabilization, has difficulty achieving posterior pelvic tilt, core musculature fatigues quickly Physical Therapy Plan Frequency and Duration Frequency of Treatment 2x/Week Duration of Treatment 3 months Plan of Care Start Date 07/08/18 Plan of Care End Date 10/06/18 Therapeutic Interventions Therapeutic Interventions Aquatic Therapy Home Exercise Program Manual Therapy Neuromuscular Re-education Patient/Caregiver Education Self-Care/Home Management Soft Tissue Mobilization Taping Therapeutic Activities Therapeutic Exercises Modalities Cold Pack/Ice Massage Electric Stimulation Hot Packs Ultrasound Next Visit Focus/Plan Next Note Type Treatment Note Next Visit Plan Progress ther ex for core stabilization and strengthening, continue combination land and aquatic PT.
--- NOTE | 2018-07-28 16:24 | PT.OTN ---
Current Diagnoses Arthropathy, unspecified (07/28/18) Other intervertebral disc degeneration, lumbar region (07/28/18) Intervertebral disc stenosis of neural canal of lumbar region (07/28/18) Physical Therapy Treatment Note PT-OP-A Visit Information Start: 07/08/18 11:14 Freq: Status: Active Protocol: Document 07/28/18 15:26 SAK (Rec: 07/28/18 15:27 [facility] [id number]) Out-Patient Physical Therapy Visit Information Visit Information Visit Type Treatment Note Visit Start Time 15:15 Visit Stop Time 16:05 Total Visit Minutes 50 Visit Number 5 Number of GRINDER TENDER Visits 0 Evaluation Information Evaluation Date 07/08/18 PT-OP-B Current Condition Start: 07/08/18 11:14 Freq: Status: Active Protocol: Document 07/08/18 11:15 [facility] (Rec: 07/08/18 12:08 [facility] [id number]) Current Condition History of Current Condition Onset Date 4 yrs Current Complaints LBP, anterior hip/groin pain, medial bilateral LE pain History of Current Condition Has had persistent, worsening pain. Has seen a chiropractor recently with some relief (70 % 3-4 days). Wants combination land and aquatic PT to do what he can to avoid surgery. No good position for pain relief. Prior PT focused on soft tissue relief, manual therapy anteriorly not helpful. 5 years clear of bladder CA. MRI shows miltilevel degenerative disc disease, multilevel facet arthropathy, severe L4-5 central canal narrowing, mild L1-2 central canal narrowing. Severe bilateral L4-5 neural foraminal narrowing, severe right and mild left L5-S1 neural foraminal narrowing. Moderate bilateral L3-4 neural foraminal narrowing, mild bilateral L2-L3 neural foraminal narrowing. Future Testing and Treatments Planned Waiting for consult at [facility] Treatment Goals Patient/Caregiver Goals Minimize pain, improve his function, avoid back surgery. Prior Functional Status Baseline Function- ADL's Independent Baseline Function- Mobility Independent Baseline Function- Gait indep Baseline Function- Recreation/Hobbies No limitations Current Functional Impairments (Reported) Functional Limitations- ADL's painful Functional Limitations- Mobility/Gait painful, limited to short distance community Functional Limitations- Recreation/ painful, unable Hobbies Personal Factors Other Personal Factors That May Effect obesity: BMI 41 Therapy/Recovery PT-OP-C Subjective Start: 07/08/18 11:14 Freq: Status: Active Protocol: Document 07/28/18 15:28 [facility]AK (Rec: 07/28/18 16:24 [facility]AK [id number]) OP-PT Subjective Patient Comments Patient Comments Reports pretty good couple days. PT-OP-G Mobility & Gait Start: 07/08/18 11:14 Freq: Status: Active Protocol: Document 07/08/18 11:15 SAK (Rec: 07/08/18 14:04 [facility]AK [id number]) OP Mobility Evaluation Bed Mobility Rolling painful Supine to and from Sit painful Transfers Sit to Stand painful with increased lumbar lordosis OP Gait Assessment Gait Gait Assistance Required: Independent Assistive Devices Assistive Device None Gait Deviations General Gait Pattern Wide Based Gait Comments Gait Comments ER bernadette LE's, increased lumbar lordosis, increased thoracic kyphosis, forward head PT-OP-J Posture/Palpation/Skin Start: 07/08/18 11:14 Freq: Status: Active Protocol: Document 07/08/18 11:15 SAK (Rec: 07/08/18 14:04 [facility] [id number]) Posture Evaluation Position Standing Head/C-Spine Posture Forward Head T-Spine Posture Increased Kyphosis L-Spine Posture Increased Lordosis Palpation Assessment Location Two Palpation Location lumbar parspinals Palpation Findings Soft Tissue Tightness Tenderness PT-OP-K Range of Motion Start: 07/08/18 11:14 Freq: Status: Active Protocol: Document 07/08/18 11:15 SAK (Rec: 07/08/18 14:04 [facility] [id number]) Lumbar Spine Range of Motion Lumbar Spine Active Testing Position Standing Extension 20 Rotation Left 30 Rotation Right 30 Lateral Flexion Left 25 Lateral Flexion Right 25 Comments forward flexion of trunk to 80 deg but with minimal movement in lumbar spine; majority of movement occurs at hips Hip Goniometric Range of Motion Hip Measured in Degrees bernadette Testing Position Supine Flexion w/Knee Flexed 100 Straight Leg Raise 65 Extension 0 Internal Rotation 10 External Rotation 35 Hip ROM Limitations Hip ROM Limitations Soft Tissue Tightness Pain Knee Goniometric Range of Motion Knee Measured in Degrees Right Knee ROM WFL Yes Left Knee ROM WFL Yes PT-OP-M Strength Start: 07/08/18 11:14 Freq: Status: Active Protocol: Document 07/08/18 11:15 [facility]AK (Rec: 07/08/18 14:04 [facility] [id number]) Trunk Strength Trunk Manual Muscle Testing Core Stabilization poor activation of TrA, multifidi Hip Strength Hip Manual Muscle Testing bernadette Flexion (L2) 4 Good Extension (S1) 3+ Fair+ Abduction 4 Good External Rotation 4- Good- Internal Rotation 4 Good Knee Strength Knee Manual Muscle Testing bernadette Flexion (S2) 5 Normal Extension (L3) 5 Normal Ankle/Foot Strength Ankle and Foot Manual Muscle Testing Right Dorsiflexion (L4) 5 Normal Plantarflexion (S1) 5 Normal Left Dorsiflexion (L4) 5 Normal Plantarflexion (S1) 5 Normal PT-OP-Q Treatments Start: 07/08/18 11:14 Freq: Status: Active Protocol: Document 07/28/18 15:28 [facility]AK (Rec: 07/28/18 16:05 [facility] [id number]) Cardio Equipment Recumbent Stepper (Sci-Fit) Duration (Minutes) 10 Resistance 2.5 Seat Position 13 Gym Equipment Shuttle Recovery Unilateral Squats Resistance 37 Reps/Time 10x2 Bilateral Squats Resistance 62 Shuttle Recovery Platform Stable Reps/Time 10x2 Therapeutic Ball pelvic tilts Exercise Details A/P, side/side, circles Ball Size/Color 75 cm Body Position Sitting Reps/Duration 10x ea Comments verbal and manual cues Therapeutic Exercises Supine Exercises isometric hold abdominals Supine Exercise Name push/pull Reps/Minutes 5x DKTC Reps/Minutes 2x SKTC Reps/Minutes 2x ball squeeze Reps/Minutes 10x dbl leg lowering Equipment Used 6575 cm ball Reps/Minutes 10x september Supine Exercise Name with TrA Reps/Minutes 10x sequential bridge Reps/Minutes 10x Pelvic tilt Reps/Minutes 10x Standing Exercises 2 Standing Exercise Name HC stretch Equipment Used AILYN PT-OP-S Aquatic Treatment Start: 07/08/18 11:14 Freq: Status: Active Protocol: Document 07/26/18 11:45 JIN (Rec: 07/26/18 14:44 LJ [id number]) Aquatics Treatment Pool Entry/Exit Pool Entry/Exit Method Stairs Assistance Independent Comments stretches back on exit Water Walking Backwards Water Level Chest Level Level of Assistance Verbal Cues Comments VC for glute activation w/o lordosis Monster Walk Water Level Chest Level Level of Assistance Verbal Cues Sideways Water Level Chest Level Level of Assistance Verbal Cues Comments lacks core activation Forwards Water Level Chest Level Level of Assistance Verbal Cues Comments lacks core activation Lunge Walk Water Level Chest Level Level of Assistance Verbal Cues Comments lacks core activation Spinal Exercises 2 Details pelvic tilts on wall Body Position Standing Water Level Chest Level Reps/Duration x25 Comments VCs for TrA activation; manual cues for posterior pelvic tilt [place] Activities [place] Activities Bicycle [place] Hip Abduction/Adduction Sit Kicks Other Activities Corner SLR x 5: 10 sec raise, lower, and hold LB stretch on ladder 2nd step 30 sec hold x 2 Equipment BB Duration 15 min Comments Pt lacks core control during transitional motions. PT-OP-T Assessment and Plan Start: 07/08/18 11:14 Freq: Status: Active Protocol: Document 07/28/18 15:28 [facility] (Rec: 07/28/18 16:23 [facility] [id number]) Physical Therapy Assessment Goals Four Impairment posture Short Term Goal (STG) Patient will demonstrate good understanding of neutral posture and be able to correct his posture with minimal verbal and manual cues STG Duration 6 wks Longterm Goal (LTG) Patient will demonstrate ability to self-correct posture with no cues consistently LTG Duration 3 months Three Impairment strength/core stab Short Term Goal (STG) Patient to demonstrate good understanding of HEP and be compliant with HEP with emphasis on core stab and strengthening STG Duration 6 wks Ticket Marker Goal (LTG) Patient to demonstrate good core stabilization with functional mobility skills LTG Duration 3 months Two Impairment activity tolerance Short Term Goal (STG) Decrease Oswestry disability index score to no greater than 30% STG Duration 6 wks Ticket Marker Goal (LTG) Decrease Oswestry Disability Index score to no greater than 15% and return to usual activities without pain LTG Duration 3 months One Impairment painful functional mobility Short Term Goal (STG) Patient will be able to roll over in bed with minimal to no pain STG Duration 6 wks Longterm Goal (LTG) Patient will be able to perform all transfers and walk community distances with minimal to no pain. LTG Duration 3 months Assessment Summary Assessment Improved ability to perform pelvic tilt; use of mirror for visual feedback with seated therapy ball exercises helpful . Physical Therapy Plan Frequency and Duration Frequency of Treatment 2x/Week Duration of Treatment 3 months Plan of Care Start Date 07/08/18 Plan of Care End Date 10/06/18 Therapeutic Interventions Therapeutic Interventions Aquatic Therapy Home Exercise Program Manual Therapy Neuromuscular Re-education Patient/Caregiver Education Self-Care/Home Management Soft Tissue Mobilization Taping Therapeutic Activities Therapeutic Exercises Modalities Cold Pack/Ice Massage Electric Stimulation Hot Packs Ultrasound Next Visit Focus/Plan Next Note Type Treatment Note Next Visit Plan Progress ther ex for core stabilization and strengthening, continue combination land and aquatic PT.
--- NOTE | 2018-08-03 16:47 | PT.OTN ---
Current Diagnoses Arthropathy, unspecified (08/03/18) Other intervertebral disc degeneration, lumbar region (08/03/18) Intervertebral disc stenosis of neural canal of lumbar region (08/03/18) Physical Therapy Treatment Note PT-OP-A Visit Information Start: 07/08/18 11:14 Freq: Status: Active Protocol: Document 08/03/18 12:59 [facility]AK (Rec: 08/03/18 13:45 [facility] [id number]) Out-Patient Physical Therapy Visit Information Visit Information Visit Type Treatment Note Visit Start Time 13:00 Visit Stop Time 13:50 Total Visit Minutes 50 Visit Number 10 Number of PRECISION LAYOUT WORKER Visits 0 Evaluation Information Evaluation Date 07/08/18 PT-OP-B Current Condition Start: 07/08/18 11:14 Freq: Status: Active Protocol: Document 07/08/18 11:15 [facility] (Rec: 07/08/18 12:08 [facility] [id number]) Current Condition History of Current Condition Onset Date 4 yrs Current Complaints LBP, anterior hip/groin pain, medial bilateral LE pain History of Current Condition Has had persistent, worsening pain. Has seen a chiropractor recently with some relief (70 % 3-4 days). Wants combination land and aquatic PT to do what he can to avoid surgery. No good position for pain relief. Prior PT focused on soft tissue relief, manual therapy anteriorly not helpful. 5 years clear of bladder CA. MRI shows miltilevel degenerative disc disease, multilevel facet arthropathy, severe L4-5 central canal narrowing, mild L1-2 central canal narrowing. Severe bilateral L4-5 neural foraminal narrowing, severe right and mild left L5-S1 neural foraminal narrowing. Moderate bilateral L3-4 neural foraminal narrowing, mild bilateral L2-L3 neural foraminal narrowing. Future Testing and Treatments Planned Waiting for consult at [facility] Treatment Goals Patient/Caregiver Goals Minimize pain, improve his function, avoid back surgery. Prior Functional Status Baseline Function- ADL's Independent Baseline Function- Mobility Independent Baseline Function- Gait indep Baseline Function- Recreation/Hobbies No limitations Current Functional Impairments (Reported) Functional Limitations- ADL's painful Functional Limitations- Mobility/Gait painful, limited to short distance community Functional Limitations- Recreation/ painful, unable Hobbies Personal Factors Other Personal Factors That May Effect obesity: BMI 41 Therapy/Recovery PT-OP-C Subjective Start: 07/08/18 11:14 Freq: Status: Active Protocol: Document 08/03/18 12:59 [facility]AK (Rec: 08/03/18 13:45 [facility]AK [id number]) OP-PT Subjective Patient Comments Patient Comments Pain variable, a couple of bad nights, but overall improved. Pain 0-2 mostly, occasional spike to 7/10. Taking an Alleve at dinnertime and 600mg Neurontin at bedtime. PT-OP-G Mobility & Gait Start: 07/08/18 11:14 Freq: Status: Active Protocol: Document 07/08/18 11:15 [facility]AK (Rec: 07/08/18 14:04 [facility] [id number]) OP Mobility Evaluation Bed Mobility Rolling painful Supine to and from Sit painful Transfers Sit to Stand painful with increased lumbar lordosis OP Gait Assessment Gait Gait Assistance Required: Independent Assistive Devices Assistive Device None Gait Deviations General Gait Pattern Wide Based Gait Comments Gait Comments ER bernadette LE's, increased lumbar lordosis, increased thoracic kyphosis, forward head PT-OP-J Posture/Palpation/Skin Start: 07/08/18 11:14 Freq: Status: Active Protocol: Document 07/08/18 11:15 [facility]AK (Rec: 07/08/18 14:04 [facility] [id number]) Posture Evaluation Position Standing Head/C-Spine Posture Forward Head T-Spine Posture Increased Kyphosis L-Spine Posture Increased Lordosis Palpation Assessment Location Two Palpation Location lumbar parspinals Palpation Findings Soft Tissue Tightness Tenderness PT-OP-K Range of Motion Start: 07/08/18 11:14 Freq: Status: Active Protocol: Document 07/08/18 11:15 [facility]AK (Rec: 07/08/18 14:04 [facility] [id number]) Lumbar Spine Range of Motion Lumbar Spine Active Testing Position Standing Extension 20 Rotation Left 30 Rotation Right 30 Lateral Flexion Left 25 Lateral Flexion Right 25 Comments forward flexion of trunk to 80 deg but with minimal movement in lumbar spine; majority of movement occurs at hips Hip Goniometric Range of Motion Hip Measured in Degrees bernadette Testing Position Supine Flexion w/Knee Flexed 100 Straight Leg Raise 65 Extension 0 Internal Rotation 10 External Rotation 35 Hip ROM Limitations Hip ROM Limitations Soft Tissue Tightness Pain Knee Goniometric Range of Motion Knee Measured in Degrees Right Knee ROM WFL Yes Left Knee ROM WFL Yes PT-OP-M Strength Start: 07/08/18 11:14 Freq: Status: Active Protocol: Document 07/08/18 11:15 [facility]AK (Rec: 07/08/18 14:04 [facility]AK [id number]) Trunk Strength Trunk Manual Muscle Testing Core Stabilization poor activation of TrA, multifidi Hip Strength Hip Manual Muscle Testing bernadette Flexion (L2) 4 Good Extension (S1) 3+ Fair+ Abduction 4 Good External Rotation 4- Good- Internal Rotation 4 Good Knee Strength Knee Manual Muscle Testing bernadette Flexion (S2) 5 Normal Extension (L3) 5 Normal Ankle/Foot Strength Ankle and Foot Manual Muscle Testing Right Dorsiflexion (L4) 5 Normal Plantarflexion (S1) 5 Normal Left Dorsiflexion (L4) 5 Normal Plantarflexion (S1) 5 Normal PT-OP-Q Treatments Start: 07/08/18 11:14 Freq: Status: Active Protocol: Document 08/03/18 12:59 [facility]AK (Rec: 08/03/18 13:45 [facility] [id number]) Cardio Equipment Recumbent Stepper (Sci-Fit) Duration (Minutes) 10 Resistance 3.0 Seat Position 13 Gym Equipment Shuttle Recovery Unilateral Squats Resistance 50 Reps/Time 10x2 Bilateral Squats Resistance 75 Shuttle Recovery Platform Stable Reps/Time 10x2 Shuttle Balance 1 Details red clips Comments WBOS & NBOS fwd & side; fwd staggered stance. emphasis on core stab and alignment Therapeutic Ball pelvic tilts Exercise Details A/P, side/side, circles Ball Size/Color 75 cm Body Position Sitting Reps/Duration 10x ea Comments verbal and manual cues Sport Cord fwd/bck/side Cord/Resistance green Reps/Duration 5x ea Comments mirror for visual feedback Therapeutic Exercises Standing Exercises postural isometric Reps/Minutes 10x 5 Standing Exercise Name hamstring stretche Equipment Used stair 2 Standing Exercise Name HC stretch Equipment Used AILYN Gait Training Gait Activity 1 Description stair gait Comments 4 stair; emphasis on gluteal activation 20 stairs Self-Care/Home Management Treatment Education Patient Education Body Mechanics Joint Protection Posture PT-OP-S Aquatic Treatment Start: 07/08/18 11:14 Freq: Status: Active Protocol: Document 07/26/18 11:45 LJ (Rec: 07/26/18 14:44 LJ [id number]) Aquatics Treatment Pool Entry/Exit Pool Entry/Exit Method Stairs Assistance Independent Comments stretches back on exit Water Walking Backwards Water Level Chest Level Level of Assistance Verbal Cues Comments VC for glute activation w/o lordosis Monster Walk Water Level Chest Level Level of Assistance Verbal Cues Sideways Water Level Chest Level Level of Assistance Verbal Cues Comments lacks core activation Forwards Water Level Chest Level Level of Assistance Verbal Cues Comments lacks core activation Lunge Walk Water Level Chest Level Level of Assistance Verbal Cues Comments lacks core activation Spinal Exercises 2 Details pelvic tilts on wall Body Position Standing Water Level Chest Level Reps/Duration x25 Comments VCs for TrA activation; manual cues for posterior pelvic tilt [place] Activities [place] Activities Bicycle [place] Hip Abduction/Adduction Sit Kicks Other Activities Corner SLR x 5: 10 sec raise, lower, and hold LB stretch on ladder 2nd step 30 sec hold x 2 Equipment BB Duration 15 min Comments Pt lacks core control during transitional motions. PT-OP-T Assessment and Plan Start: 07/08/18 11:14 Freq: Status: Active Protocol: Document 08/03/18 12:59 [facility] (Rec: 08/03/18 16:47 [facility] [id number]) Physical Therapy Assessment Goals Four Impairment posture Short Term Goal (STG) Patient will demonstrate good understanding of neutral posture and be able to correct his posture with minimal verbal and manual cues STG Duration 6 wks Feather Trimmer Goal (LTG) Patient will demonstrate ability to self-correct posture with no cues consistently LTG Duration 3 months Three Impairment strength/core stab Short Term Goal (STG) Patient to demonstrate good understanding of HEP and be compliant with HEP with emphasis on core stab and strengthening STG Duration 6 wks Group Home Goal (LTG) Patient to demonstrate good core stabilization with functional mobility skills LTG Duration 3 months Two Impairment activity tolerance Short Term Goal (STG) Decrease Oswestry disability index score to no greater than 30% STG Duration 6 wks Feather Trimmer Goal (LTG) Decrease Oswestry Disability Index score to no greater than 15% and return to usual activities without pain LTG Duration 3 months One Impairment painful functional mobility Short Term Goal (STG) Patient will be able to roll over in bed with minimal to no pain STG Duration 6 wks Group Home Goal (LTG) Patient will be able to perform all transfers and walk community distances with minimal to no pain. LTG Duration 3 months Assessment Summary Assessment Patient demonstrating improving understanding of neutral alignment, progressed to sport cord without c/o pain. Overall decrease in pain per patient report. Physical Therapy Plan Frequency and Duration Frequency of Treatment 2x/Week Duration of Treatment 3 months Plan of Care Start Date 12/20/18 Plan of Care End Date 10/06/18 Therapeutic Interventions Therapeutic Interventions Aquatic Therapy Home Exercise Program Manual Therapy Neuromuscular Re-education Patient/Caregiver Education Self-Care/Home Management Soft Tissue Mobilization Taping Therapeutic Activities Therapeutic Exercises Modalities Cold Pack/Ice Massage Electric Stimulation Hot Packs Ultrasound Next Visit Focus/Plan Next Note Type Treatment Note Next Visit Plan Aquatic therapy next session; emphasis on neutral alignment and core stabilization, strengthening.
--- NOTE | 2018-08-06 14:51 | PT.OTN ---
Current Diagnoses Arthropathy, unspecified (08/06/18) Other intervertebral disc degeneration, lumbar region (08/06/18) Intervertebral disc stenosis of neural canal of lumbar region (08/06/18) Physical Therapy Treatment Note PT-OP-A Visit Information Start: 07/08/18 11:14 Freq: Status: Active Protocol: Document 08/06/18 10:15 SAK (Rec: 08/06/18 14:47 SAK [id number]) Out-Patient Physical Therapy Visit Information Visit Information Visit Type Aquatic Treatment Note Visit Start Time 10:15 Visit Stop Time 11:00 Total Visit Minutes 45 Visit Number 7 Evaluation Information Evaluation Date 07/08/18 PT-OP-B Current Condition Start: 07/08/18 11:14 Freq: Status: Active Protocol: Document 07/08/18 11:15 SAK (Rec: 07/08/18 12:08 SAK [id number]) Current Condition History of Current Condition Onset Date 4 yrs Current Complaints LBP, anterior hip/groin pain, medial bilateral LE pain History of Current Condition Has had persistent, worsening pain. Has seen a chiropractor recently with some relief (70 % 3-4 days). Wants combination land and aquatic PT to do what he can to avoid surgery. No good position for pain relief. Prior PT focused on soft tissue relief, manual therapy anteriorly not helpful. 5 years clear of bladder CA. MRI shows miltilevel degenerative disc disease, multilevel facet arthropathy, severe L4-5 central canal narrowing, mild L1-2 central canal narrowing. Severe bilateral L4-5 neural foraminal narrowing, severe right and mild left L5-S1 neural foraminal narrowing. Moderate bilateral L3-4 neural foraminal narrowing, mild bilateral L2-L3 neural foraminal narrowing. Future Testing and Treatments Planned Waiting for consult at [facility] Treatment Goals Patient/Caregiver Goals Minimize pain, improve his function, avoid back surgery. Prior Functional Status Baseline Function- ADL's Independent Baseline Function- Mobility Independent Baseline Function- Gait indep Baseline Function- Recreation/Hobbies No limitations Current Functional Impairments (Reported) Functional Limitations- ADL's painful Functional Limitations- Mobility/Gait painful, limited to short distance community Functional Limitations- Recreation/ painful, unable Hobbies Personal Factors Other Personal Factors That May Effect obesity: BMI 41 Therapy/Recovery PT-OP-C Subjective Start: 07/08/18 11:14 Freq: Status: Active Protocol: Document 08/06/18 10:15 SAK (Rec: 08/06/18 14:47 SAK [id number]) OP-PT Subjective Patient Comments Patient Reported Progress Improving PT-OP-G Mobility & Gait Start: 07/08/18 11:14 Freq: Status: Active Protocol: Document 07/08/18 11:15 SAK (Rec: 07/08/18 14:04 SAK [id number]) OP Mobility Evaluation Bed Mobility Rolling painful Supine to and from Sit painful Transfers Sit to Stand painful with increased lumbar lordosis OP Gait Assessment Gait Gait Assistance Required: Independent Assistive Devices Assistive Device None Gait Deviations General Gait Pattern Wide Based Gait Comments Gait Comments ER bernadette LE's, increased lumbar lordosis, increased thoracic kyphosis, forward head PT-OP-J Posture/Palpation/Skin Start: 07/08/18 11:14 Freq: Status: Active Protocol: Document 07/08/18 11:15 SAK (Rec: 07/08/18 14:04 SAK [id number]) Posture Evaluation Position Standing Head/C-Spine Posture Forward Head T-Spine Posture Increased Kyphosis L-Spine Posture Increased Lordosis Palpation Assessment Location Two Palpation Location lumbar parspinals Palpation Findings Soft Tissue Tightness Tenderness PT-OP-K Range of Motion Start: 07/08/18 11:14 Freq: Status: Active Protocol: Document 07/08/18 11:15 SAK (Rec: 07/08/18 14:04 [facility] [id number]) Lumbar Spine Range of Motion Lumbar Spine Active Testing Position Standing Extension 20 Rotation Left 30 Rotation Right 30 Lateral Flexion Left 25 Lateral Flexion Right 25 Comments forward flexion of trunk to 80 deg but with minimal movement in lumbar spine; majority of movement occurs at hips Hip Goniometric Range of Motion Hip Measured in Degrees bernadette Testing Position Supine Flexion w/Knee Flexed 100 Straight Leg Raise 65 Extension 0 Internal Rotation 10 External Rotation 35 Hip ROM Limitations Hip ROM Limitations Soft Tissue Tightness Pain Knee Goniometric Range of Motion Knee Measured in Degrees Right Knee ROM WFL Yes Left Knee ROM WFL Yes PT-OP-M Strength Start: 07/08/18 11:14 Freq: Status: Active Protocol: Document 07/08/18 11:15 SAK (Rec: 07/08/18 14:04 SAK [id number]) Trunk Strength Trunk Manual Muscle Testing Core Stabilization poor activation of TrA, multifidi Hip Strength Hip Manual Muscle Testing bernadette Flexion (L2) 4 Good Extension (S1) 3+ Fair+ Abduction 4 Good External Rotation 4- Good- Internal Rotation 4 Good Knee Strength Knee Manual Muscle Testing bernadette Flexion (S2) 5 Normal Extension (L3) 5 Normal Ankle/Foot Strength Ankle and Foot Manual Muscle Testing Right Dorsiflexion (L4) 5 Normal Plantarflexion (S1) 5 Normal Left Dorsiflexion (L4) 5 Normal Plantarflexion (S1) 5 Normal PT-OP-Q Treatments Start: 07/08/18 11:14 Freq: Status: Active Protocol: Document 08/03/18 12:59 [facility] (Rec: 08/03/18 13:45 [facility] [id number]) Cardio Equipment Recumbent Stepper (Sci-Fit) Duration (Minutes) 10 Resistance 3.0 Seat Position 13 Gym Equipment Shuttle Recovery Unilateral Squats Resistance 50 Reps/Time 10x2 Bilateral Squats Resistance 75 Shuttle Recovery Platform Stable Reps/Time 10x2 Shuttle Balance 1 Details red clips Comments WBOS & NBOS fwd & side; fwd staggered stance. emphasis on core stab and alignment Therapeutic Ball pelvic tilts Exercise Details A/P, side/side, circles Ball Size/Color 75 cm Body Position Sitting Reps/Duration 10x ea Comments verbal and manual cues Sport Cord fwd/bck/side Cord/Resistance green Reps/Duration 5x ea Comments mirror for visual feedback Therapeutic Exercises Standing Exercises postural isometric Reps/Minutes 10x 5 Standing Exercise Name hamstring stretche Equipment Used stair 2 Standing Exercise Name HC stretch Equipment Used AILYN Gait Training Gait Activity 1 Description stair gait Comments 4 stair; emphasis on gluteal activation 20 stairs Self-Care/Home Management Treatment Education Patient Education Body Mechanics Joint Protection Posture PT-OP-S Aquatic Treatment Start: 07/08/18 11:14 Freq: Status: Active Protocol: Document 08/06/18 10:15 [facility] (Rec: 08/06/18 14:51 [facility] [id number]) Aquatics Treatment Pool Entry/Exit Pool Entry/Exit Method Stairs Assistance Independent Water Walking Backwards Water Level Chest Level Walking Equipment kickboard held underwater for core activation Level of Assistance Verbal Cues Comments VC for glute activation w/o lordosis Sideways Water Level Chest Level Walking Equipment kickboard held underwater for core activation Level of Assistance Verbal Cues Forwards Water Level Chest Level Walking Equipment kickboard held underwater for core activation Level of Assistance Verbal Cues Comments lacks core activation Spinal Exercises tiltboard sit Details minimize use of UE's and LE's Reps/Duration 6 min wall squat Details kickboard push down slow return, small amp side to side (held underwater), Equipment kickboard Comments also fwd/bck (KB held underwater) 2 Details pelvic tilts on wall Body Position Standing Water Level Chest Level Reps/Duration 5x Comments VCs for TrA activation; manual cues for posterior pelvic tilt [place] Activities [place] Activities Bicycle Bicycle Backwards [place] Running Hip Abduction/Adduction Sit Kicks Comments med barbells for backward, forward holding barbells at sides PT-OP-T Assessment and Plan Start: 07/08/18 11:14 Freq: Status: Active Protocol: Document 08/06/18 10:15 SAK (Rec: 08/06/18 14:47 SAK [id number]) Physical Therapy Assessment Goals Four Impairment posture Short Term Goal (STG) Patient will demonstrate good understanding of neutral posture and be able to correct his posture with minimal verbal and manual cues STG Duration 6 wks Half-Way Goal (LTG) Patient will demonstrate ability to self-correct posture with no cues consistently LTG Duration 3 months Three Impairment strength/core stab Short Term Goal (STG) Patient to demonstrate good understanding of HEP and be compliant with HEP with emphasis on core stab and strengthening STG Duration 6 wks Half-Way Goal (LTG) Patient to demonstrate good core stabilization with functional mobility skills LTG Duration 3 months Two Impairment activity tolerance Short Term Goal (STG) Decrease Oswestry disability index score to no greater than 30% STG Duration 6 wks Half-Way Goal (LTG) Decrease Oswestry Disability Index score to no greater than 15% and return to usual activities without pain LTG Duration 3 months One Impairment painful functional mobility Short Term Goal (STG) Patient will be able to roll over in bed with minimal to no pain STG Duration 6 wks Half-Way Goal (LTG) Patient will be able to perform all transfers and walk community distances with minimal to no pain. LTG Duration 3 months Physical Therapy Plan Frequency and Duration Frequency of Treatment 2x/Week Duration of Treatment 3 months Plan of Care Start Date 07/08/18 Plan of Care End Date 10/06/18 Therapeutic Interventions Therapeutic Interventions Aquatic Therapy Home Exercise Program Manual Therapy Neuromuscular Re-education Patient/Caregiver Education Self-Care/Home Management Soft Tissue Mobilization Taping Therapeutic Activities Therapeutic Exercises Modalities Cold Pack/Ice Massage Electric Stimulation Hot Packs Ultrasound Next Visit Focus/Plan Next Note Type Treatment Note Next Visit Plan Continue to progress with therapeutic land and aquatic exercises for core strengthening, postural correction and pain management .
--- NOTE | 2018-08-06 14:52 | PT.OTN ---
Current Diagnoses Arthropathy, unspecified (08/06/18) Other intervertebral disc degeneration, lumbar region (08/06/18) Intervertebral disc stenosis of neural canal of lumbar region (08/06/18) Physical Therapy Treatment Note PT-OP-A Visit Information Start: 07/08/18 11:14 Freq: Status: Active Protocol: Document 08/06/18 10:15 SAK (Rec: 08/06/18 14:47 SAK [id number]) Out-Patient Physical Therapy Visit Information Visit Information Visit Type Aquatic Treatment Note Visit Start Time 10:15 Visit Stop Time 11:00 Total Visit Minutes 45 Visit Number 7 Evaluation Information Evaluation Date 07/08/18 PT-OP-B Current Condition Start: 07/08/18 11:14 Freq: Status: Active Protocol: Document 07/08/18 11:15 SAK (Rec: 07/08/18 12:08 SAK [id number]) Current Condition History of Current Condition Onset Date 4 yrs Current Complaints LBP, anterior hip/groin pain, medial bilateral LE pain History of Current Condition Has had persistent, worsening pain. Has seen a chiropractor recently with some relief (70 % 3-4 days). Wants combination land and aquatic PT to do what he can to avoid surgery. No good position for pain relief. Prior PT focused on soft tissue relief, manual therapy anteriorly not helpful. 5 years clear of bladder CA. MRI shows miltilevel degenerative disc disease, multilevel facet arthropathy, severe L4-5 central canal narrowing, mild L1-2 central canal narrowing. Severe bilateral L4-5 neural foraminal narrowing, severe right and mild left L5-S1 neural foraminal narrowing. Moderate bilateral L3-4 neural foraminal narrowing, mild bilateral L2-L3 neural foraminal narrowing. Future Testing and Treatments Planned Waiting for consult at [facility] Treatment Goals Patient/Caregiver Goals Minimize pain, improve his function, avoid back surgery. Prior Functional Status Baseline Function- ADL's Independent Baseline Function- Mobility Independent Baseline Function- Gait indep Baseline Function- Recreation/Hobbies No limitations Current Functional Impairments (Reported) Functional Limitations- ADL's painful Functional Limitations- Mobility/Gait painful, limited to short distance community Functional Limitations- Recreation/ painful, unable Hobbies Personal Factors Other Personal Factors That May Effect obesity: BMI 41 Therapy/Recovery PT-OP-C Subjective Start: 07/08/18 11:14 Freq: Status: Active Protocol: Document 08/06/18 10:15 SAK (Rec: 08/06/18 14:47 SAK [id number]) OP-PT Subjective Patient Comments Patient Reported Progress Improving PT-OP-G Mobility & Gait Start: 07/08/18 11:14 Freq: Status: Active Protocol: Document 07/08/18 11:15 SAK (Rec: 07/08/18 14:04 SAK [id number]) OP Mobility Evaluation Bed Mobility Rolling painful Supine to and from Sit painful Transfers Sit to Stand painful with increased lumbar lordosis OP Gait Assessment Gait Gait Assistance Required: Independent Assistive Devices Assistive Device None Gait Deviations General Gait Pattern Wide Based Gait Comments Gait Comments ER bernadette LE's, increased lumbar lordosis, increased thoracic kyphosis, forward head PT-OP-J Posture/Palpation/Skin Start: 07/08/18 11:14 Freq: Status: Active Protocol: Document 07/08/18 11:15 SAK (Rec: 07/08/18 14:04 SAK [id number]) Posture Evaluation Position Standing Head/C-Spine Posture Forward Head T-Spine Posture Increased Kyphosis L-Spine Posture Increased Lordosis Palpation Assessment Location Two Palpation Location lumbar parspinals Palpation Findings Soft Tissue Tightness Tenderness PT-OP-K Range of Motion Start: 07/08/18 11:14 Freq: Status: Active Protocol: Document 07/08/18 11:15 SAK (Rec: 07/08/18 14:04 [facility] [id number]) Lumbar Spine Range of Motion Lumbar Spine Active Testing Position Standing Extension 20 Rotation Left 30 Rotation Right 30 Lateral Flexion Left 25 Lateral Flexion Right 25 Comments forward flexion of trunk to 80 deg but with minimal movement in lumbar spine; majority of movement occurs at hips Hip Goniometric Range of Motion Hip Measured in Degrees bernadette Testing Position Supine Flexion w/Knee Flexed 100 Straight Leg Raise 65 Extension 0 Internal Rotation 10 External Rotation 35 Hip ROM Limitations Hip ROM Limitations Soft Tissue Tightness Pain Knee Goniometric Range of Motion Knee Measured in Degrees Right Knee ROM WFL Yes Left Knee ROM WFL Yes PT-OP-M Strength Start: 07/08/18 11:14 Freq: Status: Active Protocol: Document 07/08/18 11:15 SAK (Rec: 07/08/18 14:04 SAK [id number]) Trunk Strength Trunk Manual Muscle Testing Core Stabilization poor activation of TrA, multifidi Hip Strength Hip Manual Muscle Testing bernadette Flexion (L2) 4 Good Extension (S1) 3+ Fair+ Abduction 4 Good External Rotation 4- Good- Internal Rotation 4 Good Knee Strength Knee Manual Muscle Testing bernadette Flexion (S2) 5 Normal Extension (L3) 5 Normal Ankle/Foot Strength Ankle and Foot Manual Muscle Testing Right Dorsiflexion (L4) 5 Normal Plantarflexion (S1) 5 Normal Left Dorsiflexion (L4) 5 Normal Plantarflexion (S1) 5 Normal PT-OP-Q Treatments Start: 07/08/18 11:14 Freq: Status: Active Protocol: Document 08/03/18 12:59 [facility] (Rec: 08/03/18 13:45 [facility] [id number]) Cardio Equipment Recumbent Stepper (Sci-Fit) Duration (Minutes) 10 Resistance 3.0 Seat Position 13 Gym Equipment Shuttle Recovery Unilateral Squats Resistance 50 Reps/Time 10x2 Bilateral Squats Resistance 75 Shuttle Recovery Platform Stable Reps/Time 10x2 Shuttle Balance 1 Details red clips Comments WBOS & NBOS fwd & side; fwd staggered stance. emphasis on core stab and alignment Therapeutic Ball pelvic tilts Exercise Details A/P, side/side, circles Ball Size/Color 75 cm Body Position Sitting Reps/Duration 10x ea Comments verbal and manual cues Sport Cord fwd/bck/side Cord/Resistance green Reps/Duration 5x ea Comments mirror for visual feedback Therapeutic Exercises Standing Exercises postural isometric Reps/Minutes 10x 5 Standing Exercise Name hamstring stretche Equipment Used stair 2 Standing Exercise Name HC stretch Equipment Used AILYN Gait Training Gait Activity 1 Description stair gait Comments 4 stair; emphasis on gluteal activation 20 stairs Self-Care/Home Management Treatment Education Patient Education Body Mechanics Joint Protection Posture PT-OP-S Aquatic Treatment Start: 07/08/18 11:14 Freq: Status: Active Protocol: Document 08/06/18 10:15 [facility] (Rec: 08/06/18 14:51 [facility] [id number]) Aquatics Treatment Pool Entry/Exit Pool Entry/Exit Method Stairs Assistance Independent Water Walking Backwards Water Level Chest Level Walking Equipment kickboard held underwater for core activation Level of Assistance Verbal Cues Comments VC for glute activation w/o lordosis Sideways Water Level Chest Level Walking Equipment kickboard held underwater for core activation Level of Assistance Verbal Cues Forwards Water Level Chest Level Walking Equipment kickboard held underwater for core activation Level of Assistance Verbal Cues Comments lacks core activation Spinal Exercises tiltboard sit Details minimize use of UE's and LE's Reps/Duration 6 min wall squat Details kickboard push down slow return, small amp side to side (held underwater), Equipment kickboard Comments also fwd/bck (KB held underwater) 2 Details pelvic tilts on wall Body Position Standing Water Level Chest Level Reps/Duration 5x Comments VCs for TrA activation; manual cues for posterior pelvic tilt [place] Activities [place] Activities Bicycle Bicycle Backwards [place] Running Hip Abduction/Adduction Sit Kicks Comments med barbells for backward, forward holding barbells at sides PT-OP-T Assessment and Plan Start: 07/08/18 11:14 Freq: Status: Active Protocol: Document 08/06/18 10:15 SAK (Rec: 08/06/18 14:47 SAK [id number]) Physical Therapy Assessment Goals Four Impairment posture Short Term Goal (STG) Patient will demonstrate good understanding of neutral posture and be able to correct his posture with minimal verbal and manual cues STG Duration 6 wks Residential Goal (LTG) Patient will demonstrate ability to self-correct posture with no cues consistently LTG Duration 3 months Three Impairment strength/core stab Short Term Goal (STG) Patient to demonstrate good understanding of HEP and be compliant with HEP with emphasis on core stab and strengthening STG Duration 6 wks Residential Goal (LTG) Patient to demonstrate good core stabilization with functional mobility skills LTG Duration 3 months Two Impairment activity tolerance Short Term Goal (STG) Decrease Oswestry disability index score to no greater than 30% STG Duration 6 wks Residential Goal (LTG) Decrease Oswestry Disability Index score to no greater than 15% and return to usual activities without pain LTG Duration 3 months One Impairment painful functional mobility Short Term Goal (STG) Patient will be able to roll over in bed with minimal to no pain STG Duration 6 wks Residential Goal (LTG) Patient will be able to perform all transfers and walk community distances with minimal to no pain. LTG Duration 3 months Physical Therapy Plan Frequency and Duration Frequency of Treatment 2x/Week Duration of Treatment 3 months Plan of Care Start Date 07/08/18 Plan of Care End Date 10/06/18 Therapeutic Interventions Therapeutic Interventions Aquatic Therapy Home Exercise Program Manual Therapy Neuromuscular Re-education Patient/Caregiver Education Self-Care/Home Management Soft Tissue Mobilization Taping Therapeutic Activities Therapeutic Exercises Modalities Cold Pack/Ice Massage Electric Stimulation Hot Packs Ultrasound Next Visit Focus/Plan Next Note Type Treatment Note Next Visit Plan Continue to progress with therapeutic land and aquatic exercises for core strengthening, postural correction and pain management .
--- NOTE | 2018-08-16 15:00 | PT.OTN ---
Current Diagnoses Arthropathy, unspecified (08/06/18) Other intervertebral disc degeneration, lumbar region (08/06/18) Intervertebral disc stenosis of neural canal of lumbar region (08/06/18) Physical Therapy Treatment Note PT-OP-A Visit Information Start: 07/08/18 11:14 Freq: Status: Active Protocol: Document 08/16/18 12:30 LJ (Rec: 08/16/18 15:00 LJ [id number]) Out-Patient Physical Therapy Visit Information Visit Information Visit Type Aquatic Treatment Note Visit Start Time 12:30 Visit Stop Time 13:15 Total Visit Minutes 45 Visit Number 8 Number of BLIND EYELETTER Visits 1 PT-OP-B Current Condition Start: 07/08/18 11:14 Freq: Status: Active Protocol: Document 07/08/18 11:15 SAK (Rec: 07/08/18 12:08 SAK [id number]) Current Condition History of Current Condition Onset Date 4 yrs Current Complaints LBP, anterior hip/groin pain, medial bilateral LE pain History of Current Condition Has had persistent, worsening pain. Has seen a chiropractor recently with some relief (70 % 3-4 days). Wants combination land and aquatic PT to do what he can to avoid surgery. No good position for pain relief. Prior PT focused on soft tissue relief, manual therapy anteriorly not helpful. 5 years clear of bladder CA. MRI shows miltilevel degenerative disc disease, multilevel facet arthropathy, severe L4-5 central canal narrowing, mild L1-2 central canal narrowing. Severe bilateral L4-5 neural foraminal narrowing, severe right and mild left L5-S1 neural foraminal narrowing. Moderate bilateral L3-4 neural foraminal narrowing, mild bilateral L2-L3 neural foraminal narrowing. Future Testing and Treatments Planned Waiting for consult at [facility] Treatment Goals Patient/Caregiver Goals Minimize pain, improve his function, avoid back surgery. Prior Functional Status Baseline Function- ADL's Independent Baseline Function- Mobility Independent Baseline Function- Gait indep Baseline Function- Recreation/Hobbies No limitations Current Functional Impairments (Reported) Functional Limitations- ADL's painful Functional Limitations- Mobility/Gait painful, limited to short distance community Functional Limitations- Recreation/ painful, unable Hobbies Personal Factors Other Personal Factors That May Effect obesity: BMI 41 Therapy/Recovery PT-OP-C Subjective Start: 07/08/18 11:14 Freq: Status: Active Protocol: Document 08/16/18 12:30 LJ (Rec: 08/16/18 15:00 LJ [id number]) OP-PT Subjective Patient Comments Patient Comments No new c/o. PT-OP-G Mobility & Gait Start: 07/08/18 11:14 Freq: Status: Active Protocol: Document 07/08/18 11:15 SAK (Rec: 07/08/18 14:04 SAK [id number]) OP Mobility Evaluation Bed Mobility Rolling painful Supine to and from Sit painful Transfers Sit to Stand painful with increased lumbar lordosis OP Gait Assessment Gait Gait Assistance Required: Independent Assistive Devices Assistive Device None Gait Deviations General Gait Pattern Wide Based Gait Comments Gait Comments ER bernadette LE's, increased lumbar lordosis, increased thoracic kyphosis, forward head PT-OP-J Posture/Palpation/Skin Start: 07/08/18 11:14 Freq: Status: Active Protocol: Document 07/08/18 11:15 SAK (Rec: 07/08/18 14:04 SAK [id number]) Posture Evaluation Position Standing Head/C-Spine Posture Forward Head T-Spine Posture Increased Kyphosis L-Spine Posture Increased Lordosis Palpation Assessment Location Two Palpation Location lumbar parspinals Palpation Findings Soft Tissue Tightness Tenderness PT-OP-K Range of Motion Start: 07/08/18 11:14 Freq: Status: Active Protocol: Document 07/08/18 11:15 SAK (Rec: 07/08/18 14:04 SAK [id number]) Lumbar Spine Range of Motion Lumbar Spine Active Testing Position Standing Extension 20 Rotation Left 30 Rotation Right 30 Lateral Flexion Left 25 Lateral Flexion Right 25 Comments forward flexion of trunk to 80 deg but with minimal movement in lumbar spine; majority of movement occurs at hips Hip Goniometric Range of Motion Hip Measured in Degrees bernadette Testing Position Supine Flexion w/Knee Flexed 100 Straight Leg Raise 65 Extension 0 Internal Rotation 10 External Rotation 35 Hip ROM Limitations Hip ROM Limitations Soft Tissue Tightness Pain Knee Goniometric Range of Motion Knee Measured in Degrees Right Knee ROM WFL Yes Left Knee ROM WFL Yes PT-OP-M Strength Start: 07/08/18 11:14 Freq: Status: Active Protocol: Document 07/08/18 11:15 SAK (Rec: 07/08/18 14:04 SAK [id number]) Trunk Strength Trunk Manual Muscle Testing Core Stabilization poor activation of TrA, multifidi Hip Strength Hip Manual Muscle Testing bernadette Flexion (L2) 4 Good Extension (S1) 3+ Fair+ Abduction 4 Good External Rotation 4- Good- Internal Rotation 4 Good Knee Strength Knee Manual Muscle Testing bernadette Flexion (S2) 5 Normal Extension (L3) 5 Normal Ankle/Foot Strength Ankle and Foot Manual Muscle Testing Right Dorsiflexion (L4) 5 Normal Plantarflexion (S1) 5 Normal Left Dorsiflexion (L4) 5 Normal Plantarflexion (S1) 5 Normal PT-OP-Q Treatments Start: 07/08/18 11:14 Freq: Status: Active Protocol: Document 08/03/18 12:59 SAK (Rec: 08/03/18 13:45 SAK [id number]) Cardio Equipment Recumbent Stepper (Sci-Fit) Duration (Minutes) 10 Resistance 3.0 Seat Position 13 Gym Equipment Shuttle Recovery Unilateral Squats Resistance 50 Reps/Time 10x2 Bilateral Squats Resistance 75 Shuttle Recovery Platform Stable Reps/Time 10x2 Shuttle Balance 1 Details red clips Comments WBOS & NBOS fwd & side; fwd staggered stance. emphasis on core stab and alignment Therapeutic Ball pelvic tilts Exercise Details A/P, side/side, circles Ball Size/Color 75 cm Body Position Sitting Reps/Duration 10x ea Comments verbal and manual cues Sport Cord fwd/bck/side Cord/Resistance green Reps/Duration 5x ea Comments mirror for visual feedback Therapeutic Exercises Standing Exercises postural isometric Reps/Minutes 10x 5 Standing Exercise Name hamstring stretche Equipment Used stair 2 Standing Exercise Name HC stretch Equipment Used AILYN Gait Training Gait Activity 1 Description stair gait Comments 4 stair; emphasis on gluteal activation 20 stairs Self-Care/Home Management Treatment Education Patient Education Body Mechanics Joint Protection Posture PT-OP-S Aquatic Treatment Start: 07/08/18 11:14 Freq: Status: Active Protocol: Document 08/16/18 12:30 LJ (Rec: 08/16/18 15:00 LJ [email or web address]) Aquatics Treatment Pool Entry/Exit Pool Entry/Exit Method Stairs Assistance Independent Water Walking Backwards Water Level Chest Level Walking Equipment kickboard held underwater for core activation Level of Assistance Verbal Cues Comments VC for glute activation w/o lordosis Sideways Water Level Chest Level Walking Equipment kickboard held underwater for core activation Level of Assistance Verbal Cues Forwards Water Level Chest Level Walking Equipment kickboard held underwater for core activation Level of Assistance Verbal Cues Comments lacks core activation Spinal Exercises cross body KB pull down Details both dir Body Position Standing Water Level Waist Level Comments VC for core act. tiltboard sit Reps/Duration 10 min-LE movements Comments breaststroke in shallow water 2 Details pelvic tilts on wall Reps/Duration 10 Comments VCs for TrA activation; manual cues for posterior pelvic tilt [place] Activities [place] Activities Bicycle Cross Country Other Activities pendulums x10 Comments med barbells for backward, forward holding barbells at sides PT-OP-T Assessment and Plan Start: 07/08/18 11:14 Freq: Status: Active Protocol: Document 08/16/18 12:30 LJ (Rec: 08/16/18 15:00 LJ [email or web address]) Physical Therapy Assessment Goals Four Impairment posture Short Term Goal (STG) Patient will demonstrate good understanding of neutral posture and be able to correct his posture with minimal verbal and manual cues STG Duration 6 wks Orchestra Leader Goal (LTG) Patient will demonstrate ability to self-correct posture with no cues consistently LTG Duration 3 months Three Impairment strength/core stab Short Term Goal (STG) Patient to demonstrate good understanding of HEP and be compliant with HEP with emphasis on core stab and strengthening STG Duration 6 wks Orchestra Leader Goal (LTG) Patient to demonstrate good core stabilization with functional mobility skills LTG Duration 3 months Two Impairment activity tolerance Short Term Goal (STG) Decrease Oswestry disability index score to no greater than 30% STG Duration 6 wks Long-Term Goal (LTG) Decrease Oswestry Disability Index score to no greater than 15% and return to usual activities without pain LTG Duration 3 months One Impairment painful functional mobility Short Term Goal (STG) Patient will be able to roll over in bed with minimal to no pain STG Duration 6 wks Long-Term Goal (LTG) Patient will be able to perform all transfers and walk community distances with minimal to no pain. LTG Duration 3 months Assessment Summary Assessment Pt improved in coordination in deep water exercises. Demonstrates improved core stabilization and strength. Still requires min VC for beginning of exercise but self -corrects more often. Physical Therapy Plan Frequency and Duration Frequency of Treatment 2x/Week Duration of Treatment 3 months Plan of Care Start Date 07/08/18 Plan of Care End Date 10/06/18 Therapeutic Interventions Therapeutic Interventions Aquatic Therapy Home Exercise Program Manual Therapy Neuromuscular Re-education Patient/Caregiver Education Self-Care/Home Management Soft Tissue Mobilization Taping Therapeutic Activities Therapeutic Exercises Modalities Cold Pack/Ice Massage Electric Stimulation Hot Packs Ultrasound Next Visit Focus/Plan Next Note Type Treatment Note Next Visit Plan Continue to progress with therapeutic land and aquatic exercises for core strengthening, postural correction and pain management . Add resistance on LEs for deep water aerobic exercises.
== END 2018-11-25 12:22 ==
LOC: PHYS 12:30
PROVIDERS: Family Provider Internal Medicine; PCP Internal Medicine; Visit Provider Internal Medicine
DX: M51.36 Other intervertebral disc degeneration, lumbar region (principal); M12.9 Arthropathy, unspecified; M99.53 Intervertebral disc stenosis of neural canal of lumbar region
CPT/HCPCS: 97110; 97113; 97162; 97535

== ENCOUNTER → 2018-08-30 09:56 | Outpatient (CLI) | payer MEDICARE, OTHER, SELFPAY ==
[2018-08-30 10:18] LABS: Add Manual Diff / Slide Review NO; Basophils Absolute Auto 100 /uL (0-100); Basophils Percent Auto 1.6 % (0-2); Eosinophils Absolute Auto 200 /uL (0-450); Eosinophils Percent Auto 3.5 % (2-4); Hematocrit 39.4 % (41-53); Hemoglobin 13.6 g/dL (13.5-17.5); Lymphocytes Absolute Auto 1700 /uL (1100-4500); Lymphocytes Percent Auto 25.1 % (25-40); Mean Corpuscular HGB Conc 34.5 % (30-36); Mean Corpuscular Volume 86.8 fL (80-100); Monocytes Absolute Auto 500 /uL (0-900); Monocytes Percent Auto 7.3 % (3-14); Neutrophils Absolute Auto 4200 /uL (1500-7000); Neutrophils Percent Auto 62.5 % (50-75); Platelet Count 159 X10^3/uL (150-400); Red Blood Cell Count 4.54 X10^6/uL (4.5-5.9); Red Cell Distribution Width 13.4 % (11.6-14.8); White Blood Cell Count 6.7 X10^3/uL (4.5-11.0)
[2018-08-30 10:31] LABS: Alanine Aminotransferase 25 IU/L (21-72); Albumin 4.3 g/dL (3.5-5.0); Albumin Globulin Ratio 1.4 (1.0-2.8); Alkaline Phosphatase 109 U/L (38-126); Aspartate Aminotransferase 28 IU/L (17-59); BUN Creatinine Ratio 26.7 (6-22); Bilirubin Total 0.3 mg/dL (0.2-1.3); Blood Urea Nitrogen 24 mg/dL (9-20); Calcium 9.1 mg/dL (8.4-10.2); Carbon Dioxide 21 mmol/L (22-32); Chloride 108 mmol/L (98-107); Estimated Glomerular Filt Rate > 60.0 mL/min (>60); Glucose 118 mg/dL (80-110); HEMOLYSIS < 15 (0-50); Sodium 140 mmol/L (137-145); Total Protein 7.3 g/dL (6.3-8.2)
--- NOTE | 2018-08-30 12:14 | PC.NURSE ---
labs stable, provider visit 08/31
== END ==
PROVIDERS: Family Provider Internal Medicine; PCP Internal Medicine
DX: Z08 Encounter for follow-up examination after completed treatment for malignant neoplasm (principal); Z85.51 Personal history of malignant neoplasm of bladder; Z85.46 Personal history of malignant neoplasm of prostate
CPT/HCPCS: 36415; 80053; 85025

== ENCOUNTER 2018-11-02 08:01 | Day surgery (SDC) | payer MEDICARE, OTHER, SELFPAY ==
[2018-11-02] MEDS: PROPARACAINE 0.5% OPHTH SOL 2 DROPS EYE-OP (08:40)
[2018-11-02] MEDS: CATARACT EYE COMPOUND (10 DROPS/SYRINGE) 3 DROPS EYE-OP ×3 (08:42→09:01)
[2018-11-02 08:51] VITALS: BP 151/71; PULSE 64; RESP 20; TEMP 36.5; O2SAT 97; BMI 40.6
--- NOTE | 2018-11-02 09:46 | PM.PREOP ---
Pre-operative Note Interval Note History & Physical reviewed/Exam performed by Physician: No Changes to H&P: No
--- NOTE | 2018-11-02 09:46 | PM.OP.1 ---
Operative Date/Time/Diagnoses Pre-op diagnosis: Nuclear cataract right eye Procedure & Clinicians Procedure: Cataract Surgery Same procedure as scheduled: Yes Surgeon: Renato Mian Anesthesia Type: MAC +/- and Sedation Operative Notes Procedure in detail: Patient brought to the operating suite. Tetracaine drops placed in the right eye. Patient was prepped and draped in sterile manner. Wire lid speculum was placed in the eye. Betadine drops were placed on the eye. This was irrigated. Lidocaine jelly was placed on the eye. A paracentesis port was created with a side-port blade. 0.1 mL 1% preservative free lidocaine was injected into the anterior chamber. The anterior chamber was deepened with viscoelastic. 2.6 mm keratome was used to create a temporal clear corneal incision. Cystotome and Utrata forceps were used to create continuous tear capsulorrhexis. Balanced salt solution was used to hydro dissect the nucleus. The phacoemulsification handpiece was inserted and the nucleus was removed using the stop and chop technique. The irrigation aspiration handpiece was inserted and the remaining cortex was removed. Anterior chamber was deepened with viscoelastic. An Ren ZCB00 intraocular lens with a power of 20.0 was injected into the capsular bag. Irrigation aspiration handpiece was inserted and the remaining viscoelastic was removed. Incision was hydrated with balanced salt solution and found to be leak free with pressure with Weck-Ermelinda sponges. 0.1 mL Vigamox injected anterior chamber. 0.3 mL Kenalog 10 mg was injected subconjunctivally. Lid speculum was removed. The patient left the operating room in excellent condition. Complications: none Condition: stable Disposition: same day surgery
[2018-11-02] MEDS: PHENYLEPHRINE/LIDOCAINE VIAL (OR) 0.2 ML EYE-OP (09:59)
[2018-11-02] MEDS: MOXIFLOXACIN OPHTH DROPS 3 ML BOTTLE 2 DROPS INJ (09:59)
[2018-11-02] MEDS: CHONDROIDTIN/SOD HYALURONATE 1.05 ML SYRINGE INTRAOCULA (10:00)
[2018-11-02] MEDS: LIDOCAINE JELLY 2% 5 ML 1 APPLIC TOP (10:01)
[2018-11-02] MEDS: TETRACAINE 0.5% OPHTH DROPS 4 ML 2 DROPS EYE-OP (10:01)
[2018-11-02] MEDS: BALANCED SALT IRRIG SOLN NO.2 500 ML, EPINEPHrine 1 MG IRR (10:02)
[2018-11-02] MEDS: TRIAMCINOLONE 50 MG/5 ML VIAL INJ (10:02)
[2018-11-02 10:19] VITALS: BP 124/73; PULSE 62; RESP 16; TEMP 36.1; O2SAT 97
== END 2018-11-02 10:28 ==
LOC: OR 08:03
PROVIDERS: Family Provider Internal Medicine; PCP Internal Medicine; Visit Provider Ophthalmology
DX: H25.11 Age-related nuclear cataract, right eye (principal); F41.9 Anxiety disorder, unspecified
CPT/HCPCS: J0171; J2250; J3010; J3301

== ENCOUNTER 2018-11-16 07:30 | Day surgery (SDC) | payer MEDICARE, OTHER, SELFPAY ==
[2018-11-16 07:46] VITALS: BP 120/82; PULSE 59; RESP 18; TEMP 36.4; O2SAT 96; BMI 43.9
[2018-11-16] MEDS: PROPARACAINE 0.5% OPHTH SOL 2 DROPS EYE-OP (07:54)
[2018-11-16] MEDS: CATARACT EYE COMPOUND (10 DROPS/SYRINGE) 3 DROPS EYE-OP ×3 (07:58→08:08)
--- NOTE | 2018-11-16 09:08 | PM.PREOP ---
Pre-operative Note Interval Note History & Physical reviewed/Exam performed by Physician: No Changes to H&P: No
--- NOTE | 2018-11-16 09:08 | PM.OP.1 ---
Operative Date/Time/Diagnoses Pre-op diagnosis: Nuclear Cataract Left eye Post-op diagnosis: same Procedure & Clinicians Surgeon: Renato Main Anesthesia Type: MAC +/- and Sedation Operative Notes Procedure in detail: Patient brought to the operating suite. Tetracaine drops placed in the left eye. Patient was prepped and draped in sterile manner. Wire lid speculum was placed in the eye. Betadine drops were placed on the eye. This was irrigated. Lidocaine jelly was placed on the eye. A paracentesis port was created with a side-port blade. 0.1 mL 1% preservative free lidocaine was injected into the anterior chamber. The anterior chamber was deepened with viscoelastic. 2.6 mm keratome was used to create a temporal clear corneal incision. Cystotome and Utrata forceps were used to create continuous tear capsulorrhexis. Balanced salt solution was used to hydro dissect the nucleus. The phacoemulsification handpiece was inserted and the nucleus was removed using the stop and chop technique. The irrigation aspiration handpiece was inserted and the remaining cortex was removed. Anterior chamber was deepened with viscoelastic. An Ren ZCB00 intraocular lens with a power of 21.0 was injected into the capsular bag. Irrigation aspiration handpiece was inserted and the remaining viscoelastic was removed. Incision was hydrated with balanced salt solution and found to be leak free with pressure with Weck-Ermelinda sponges. 0.1 mL Vigamox injected anterior chamber. 0.3 mL Kenalog 10 mg was injected subconjunctivally. Lid speculum was removed. The patient left the operating room in excellent condition. Complications: none Condition: stable Disposition: same day surgery
[2018-11-16] MEDS: PHENYLEPHRINE/LIDOCAINE VIAL (OR) 0.2 ML EYE-OP (09:25)
[2018-11-16] MEDS: CHONDROIDTIN/SOD HYALURONATE 1.05 ML SYRINGE INTRAOCULA (09:25)
[2018-11-16] MEDS: TRIAMCINOLONE 50 MG/5 ML VIAL INJ (09:25)
[2018-11-16] MEDS: MOXIFLOXACIN OPHTH DROPS 3 ML BOTTLE 2 DROPS INJ (09:25)
[2018-11-16] MEDS: BALANCED SALT IRRIG SOLN NO.2 500 ML, EPINEPHrine 1 MG IRR (09:26)
[2018-11-16] MEDS: TETRACAINE 0.5% OPHTH DROPS 4 ML 2 DROPS EYE-OP (09:26)
[2018-11-16] MEDS: LIDOCAINE JELLY 2% 5 ML 1 APPLIC TOP (09:26)
[2018-11-16 09:41] VITALS: BP 119/68; PULSE 55; RESP 16; TEMP 36.4; O2SAT 94
== END 2018-11-16 09:54 | disposition home or self-care (01) ==
PROVIDERS: Family Provider Internal Medicine; PCP Internal Medicine; Visit Provider Ophthalmology
DX: H25.12 Age-related nuclear cataract, left eye (principal); F41.9 Anxiety disorder, unspecified
CPT/HCPCS: J0171; J2250; J3010; J3301

== ENCOUNTER → 2019-06-30 14:09 | Outpatient (CLI) | payer MEDICARE, OTHER, SELFPAY ==
--- NOTE | 2019-06-30 | DI.US.S_ITS ---
PROCEDURE: US RENAL COMPLETE INDICATIONS: PERSONAL HISTORY OF MALIGNANT NEOPLASM OF BLADDER TECHNIQUE: Real-time scanning was performed of the kidneys and bladder, with image documentation. COMPARISON: [facility], CT, IVP (ABD & PEL WWO CONTRAST), 03/03/2017, 10:39. [facility], CT, CT ABDOMEN PELVIS WO/W CON, 03/02/2018, 10:29. FINDINGS: Kidneys: Kidneys are normal in size. Right kidney measures 12.7 cm long; left kidney measures 11.0 cm long. Right renal cortical thickness is 1.2 cm; left renal cortical thickness is 1.3 cm. Renal cortical echotexture is normal. Mild bilateral renal pelviectasis, left greater than right. No nephrolithiasis. A couple of cysts are seen in left kidney, one in the inferior pole measuring 1.1 cm and one in the mid zone measuring 8mm. No suspicious solid mass lesions. Bladder: Surgically absent Miscellaneous: No free pelvic fluid. IMPRESSION: 1. Mild bilateral renal pelviectasis, left and right. 2. Small left renal cysts. 3. Cystectomy. Dictated by: Howie Melo M.D. on 06/30/2019 at 16:16 Approved by: Howie Melo M.D. on 06/30/2019 at 16:27
== END ==
PROVIDERS: Family Provider Internal Medicine; PCP Internal Medicine; Visit Provider Urology
DX: Z08 Encounter for follow-up examination after completed treatment for malignant neoplasm (principal); Z85.51 Personal history of malignant neoplasm of bladder; N28.1 Cyst of kidney, acquired; Z90.6 Acquired absence of other parts of urinary tract
CPT/HCPCS: 76770

== ENCOUNTER → 2019-08-25 16:13 | Outpatient (CLI) | payer MEDICARE, OTHER, SELFPAY ==
--- NOTE | 2019-08-25 | DI.MRI.S_ITS ---
PROCEDURE: MR LUMBAR SPINE WO/W CON INDICATIONS: Spondylosis without myelopathy or radiculopathy TECHNIQUE: Noncontrast sagittal T1 spin echo and T2 fast spin echo, sagittal STIR, axial T1 and T2 fast spin echo through the lumbar spine. In cases with scoliosis, additional coronal T2 fast spin echo may be performed. After the administration of contrast, sagittal and axial T1 spin echo with fat saturation through the lumbar spine. COMPARISON: None. FINDINGS: Image quality: Excellent. Alignment and curvature: There is normal bony alignment. Marrow: Multilevel degenerative endplate sclerosis and spurring. Diffuse facet arthropathy. No acute vertebral body compression fractures. No suspicious marrow enhancement. Spinal cord: Conus medullaris terminates at the L1 level. Visualized spinal cord demonstrates normal signal, without suspicious enhancement. Paraspinous soft tissues: No paravertebral masses or abnormal enhancement. L1-L2: Mild central canal narrowing. The lateral recesses appear grossly patent. No definite foraminal narrowing. L2-L3: Mild central canal narrowing. The lateral recesses appear patent. No right-sided foraminal stenosis. Moderate left foraminal stenosis with nerve root compression. L3-L4: Moderate-severe central canal stenosis. Partial effacement of both lateral recesses with bilaterally symmetric appearance. Moderate bilateral foraminal stenosis with questionable nerve root compression. L4-L5: Moderate-severe canal narrowing. Partial effacement of both lateral recesses with bilaterally symmetric appearance. Severe bilateral foraminal stenosis with nerve root compression. L5-S1: No high-grade central canal stenosis. Lateral recesses appear patent. No definite foraminal narrowing. IMPRESSION: Multilevel lumbar spondylosis and facet arthropathy with moderate-severe central canal narrowing at L3-L4 and L4-L5. Bilateral subarticular narrowing at L3-L4 and L4-L5. Severe bilateral L4-L5 foraminal stenoses. Moderate bilateral L3-L4, and moderate left L2-L3 foraminal stenoses No suspicious marrow or cord enhancement Dictated by: Solo Agarwal M.D. on 08/26/2019 at 9:23 Approved by: Solo Agarwal M.D. on 08/26/2019 at 9:40
== END ==
PROVIDERS: Family Provider Internal Medicine; PCP Internal Medicine; Referring Provider Dentist Orthodontics and Dentofacial Orthopedics; Visit Provider Neurological Surgery
DX: M47.816 Spondylosis without myelopathy or radiculopathy, lumbar region (principal); M48.061 Spinal stenosis, lumbar region without neurogenic claudication
CPT/HCPCS: 72158; A9579

== ENCOUNTER → 2019-12-27 10:45 | Outpatient (CLI) | payer MEDICARE, OTHER, SELFPAY ==
[2019-12-27 11:51] LABS: Hemoglobin A1C% w Est Avg Glu 5.5 % (4.0-6.0)
[2019-12-27 12:01] LABS: Alanine Aminotransferase 14 IU/L (<50); Albumin 4.1 g/dL (3.5-5.0); Albumin Globulin Ratio 1.4 (1.0-2.8); Alkaline Phosphatase 107 U/L (38-126); Aspartate Aminotransferase 26 IU/L (17-59); BUN Creatinine Ratio 30.4 (6-22); Bilirubin Total 0.3 mg/dL (0.2-1.3); Blood Urea Nitrogen 28 mg/dL (9-20); Calcium 9.2 mg/dL (8.4-10.2); Carbon Dioxide 22 mmol/L (22-32); Chloride 110 mmol/L (98-107); Cholesterol 136 mg/dL (140-199); Estimated Glomerular Filt Rate > 60.0 mL/min (>60); Globulin 2.9 g/dL (1.7-4.1); Glucose 107 mg/dL (80-110); HDL Cholesterol 45 mg/dL (40-60); HEMOLYSIS < 15 (0-50); LDL Cholesterol Calculated 76 mg/dL (<100); Potassium 4.3 mmol/L (3.4-5.1); Sodium 140 mmol/L (137-145); Triglycerides 75 mg/dL (35-150)
[2019-12-27 12:17] LABS: Vitamin D 25 Hydroxy (D3) 63.2 ng/mL (30.0-100.0)
== END ==
PROVIDERS: Nurse Practitioner Family; Family Provider Internal Medicine; PCP Internal Medicine; Referring Provider Internal Medicine; Visit Provider Internal Medicine
DX: E55.9 Vitamin D deficiency, unspecified (principal); R73.03 Prediabetes; E66.9 Obesity, unspecified; R03.0 Elevated blood-pressure reading, without diagnosis of hypertension
CPT/HCPCS: 36415; 80053; 80061; 82306; 83036

== ENCOUNTER → 2020-09-18 07:13 | Outpatient (CLI) | payer MEDICARE, OTHER, SELFPAY ==
[2020-09-18 08:26] LABS: Hemoglobin A1C% w Est Avg Glu 5.8 % (4.0-6.0)
[2020-09-18 08:27] LABS: Alanine Aminotransferase 17 IU/L (<50); Albumin Globulin Ratio 1.4 (1.0-2.8); Alkaline Phosphatase 119 U/L (38-126); Aspartate Aminotransferase 27 IU/L (17-59); BUN Creatinine Ratio 34.9 (6-22); Bilirubin Total 0.2 mg/dL (0.2-1.3); Blood Urea Nitrogen 29 mg/dL (9-20); Calcium 9.1 mg/dL (8.4-10.2); Carbon Dioxide 23 mmol/L (22-32); Chloride 111 mmol/L (98-107); Estimated Glomerular Filt Rate > 60.0 mL/min (>60); Globulin 2.9 g/dL (1.7-4.1); Glucose 118 mg/dL (80-110); HEMOLYSIS < 15 (0-50); Potassium 4.5 mmol/L (3.4-5.1); Sodium 139 mmol/L (137-145); Total Protein 6.9 g/dL (6.3-8.2)
== END ==
PROVIDERS: Family Provider Internal Medicine; PCP Internal Medicine; Referring Provider Internal Medicine; Visit Provider Internal Medicine
DX: Z00.00 Encounter for general adult medical examination without abnormal findings (principal)
CPT/HCPCS: 36415; 80053; 83036

== ENCOUNTER → 2020-09-20 08:08 | Outpatient (CLI) | payer MEDICARE, OTHER, SELFPAY ==
--- NOTE | 2020-09-20 | DI.RAD.S_ITS ---
PROCEDURE: XR LUMBAR SPINE MIN 4V INDICATIONS: LOW BACK PAIN TECHNIQUE: 5 views of the lumbar spine were acquired, including bilateral oblique views. COMPARISON: None. FINDINGS: Bones: 5 nonrib-bearing vertebrae are present. There is normal bony alignment. No vertebral body compression fractures. No suspicious bony lesions. Degenerative disc disease is mild along the thoracic spine inferiorly and the thoracolumbar junction and is [id number] along the lumbosacral spine best seen at L4-L5. Facet osteoarthritis becomes progressively more prominent from L3 inferiorly, and there may be spinal and foraminal stenosis at L3 through S1. Soft tissues: Overlying bowel gas pattern is normal. No suspicious soft tissue calcifications. Oblique images: Or subluxation seen. Moderate to moderately severe facet osteoarthritis is seen along the lower 3 levels of the LS spine. IMPRESSION: Relatively mild degenerative disc disease when compared to the degree of facet osteoarthritis which is more prominent. Spinal and foraminal stenosis from L3-4 through L5-S1 likely is present. No prior compression fracture. Dictated by: Mamadou Christie M.D. on 09/20/2020 at 11:27 Approved by: Mamadou Christie M.D. on 09/20/2020 at 11:29
== END ==
PROVIDERS: Family Provider Internal Medicine; PCP Internal Medicine; Referring Provider Internal Medicine; Visit Provider Internal Medicine
DX: M54.5 Low back pain (principal); M51.34 Other intervertebral disc degeneration, thoracic region; M51.35 Other intervertebral disc degeneration, thoracolumbar region; M51.36 Other intervertebral disc degeneration, lumbar region; M47.816 Spondylosis without myelopathy or radiculopathy, lumbar region
CPT/HCPCS: 72110

== ENCOUNTER → 2020-10-13 08:07 | Outpatient (CLI) | payer MEDICARE, OTHER, SELFPAY ==
[2020-10-13 09:28] LABS: Add Manual Diff / Slide Review NO; Basophils Absolute Auto 0 /uL (0-100); Basophils Percent Auto 0.4 % (0-2); Eosinophils Absolute Auto 200 /uL (0-450); Eosinophils Percent Auto 2.8 % (2-4); Hemoglobin 13.2 g/dL (13.5-17.5); Lymphocytes Absolute Auto 1600 /uL (1100-4500); Lymphocytes Percent Auto 20.4 % (25-40); Mean Corpuscular HGB Conc 33.1 % (30-36); Mean Corpuscular Hemoglobin 28.9 PG (26-34); Mean Corpuscular Volume 87.1 fL (80-100); Monocytes Absolute Auto 600 /uL (0-900); Neutrophils Absolute Auto 5500 /uL (1500-7000); Neutrophils Percent Auto 69.4 % (50-75); Platelet Count 221 X10^3/uL (150-400); Red Blood Cell Count 4.59 X10^6/uL (4.5-5.9); White Blood Cell Count 7.9 X10^3/uL (4.5-11.0)
[2020-10-13 10:27] LABS: Vitamin B12 824 pg/mL (239-931)
[2020-10-13 10:40] LABS: TSH w/ Reflex to FT4 1.44 uIU/mL (0.47-4.68)
== END ==
PROVIDERS: Family Provider Internal Medicine; PCP Internal Medicine; Referring Provider Internal Medicine; Visit Provider Internal Medicine
DX: R53.82 Chronic fatigue, unspecified (principal)
CPT/HCPCS: 36415; 82607; 84443; 85025

== ENCOUNTER → 2021-04-22 12:07 | Outpatient (CLI) | payer MEDICARE, OTHER, SELFPAY ==
--- NOTE | 2021-04-22 12:10 | DI.US.S_ITS ---
PROCEDURE: US ABDOMEN COMPLETE INDICATIONS: History of bladder cancer, ileostomy TECHNIQUE: Real-time scanning was performed of the abdominal and retroperitoneal organs, with image documentation. COMPARISON: [facility], US, ABDOMEN COMPLETE, 05/12/2016, 10:20. FINDINGS: Liver: Liver is mildly enlarged and measures 20.9 cm in length. Increased liver parenchymal echotexture is seen. Previously noted 6.3 x 4.8 x 6.5 cm simple cyst in anterior right hepatic lobe now measures 6.3 x 4.5 x 7.6 cm in size. No gross solid appearing hepatic lesion. Gallbladder: There is no gallstone. No gallbladder wall thickening or pericholecystic fluid. No sonographic Olmstead sign. Biliary ducts: Intrahepatic bile ducts are non-dilated. Extrahepatic bile duct caliber measures 4.2 mm. Normal is 6-7 mm or less in diameter, or 10 mm or less post-cholecystectomy. Pancreas: Pancreas is not well seen on this study due to overlying bowel gas. Spleen: Spleen is normal in size and homogeneous in echotexture. Kidneys: Kidneys are normal in size and echotexture. Right kidney measures 12.1 cm long; left kidney measures 11.7 cm long. Mild prominence of bilateral renal collecting system is seen which may indicate mild hydronephrosis versus extrarenal pelvis. No solid masses. Aorta: Visualized aorta is normal in caliber at less than 3 cm. Iliacs: Proximal common iliac arteries are normal in caliber at less than 2.5 cm. IVC: Intrahepatic inferior vena cava is patent. Miscellaneous: Urinary bladder is surgically absent. Right lower quadrant ileal conduit is seen with right-sided ileostomy. Ureteral jets are not well seen on this study. IMPRESSION: 1. Prior cystectomy with ileal conduit and right-sided ileostomy. Suggestion of very mild bilateral hydronephrosis versus prominent renal pelvis . No obstructing renal stone or solid appearing renal lesion is seen. 2. Mild hepatomegaly and hepatic steatosis. Patient's known right hepatic cyst is essentially stable in size. 3. Normal appearing gallbladder. No biliary ductal dilatation. Dictated by: Emery Navarro M.D. on 04/22/2021 at 13:38 Approved by: Emery Navarro M.D. on 04/22/2021 at 13:47
[2021-04-22 13:29] LABS: Add Manual Diff / Slide Review NO; Basophils Absolute Auto 0 /uL (0-100); Basophils Percent Auto 0.4 % (0-2); Eosinophils Absolute Auto 200 /uL (0-450); Eosinophils Percent Auto 3.1 % (2-4); Hematocrit 37.9 % (41-53); Hemoglobin 12.6 g/dL (13.5-17.5); Lymphocytes Absolute Auto 1900 /uL (1100-4500); Lymphocytes Percent Auto 24.6 % (25-40); Mean Corpuscular HGB Conc 33.3 % (30-36); Mean Corpuscular Hemoglobin 29.8 PG (26-34); Mean Corpuscular Volume 89.5 fL (80-100); Monocytes Absolute Auto 600 /uL (0-900); Monocytes Percent Auto 7.8 % (3-14); Neutrophils Absolute Auto 5000 /uL (1500-7000); Neutrophils Percent Auto 64.1 % (50-75); Platelet Count 156 X10^3/uL (150-400); Red Blood Cell Count 4.24 X10^6/uL (4.5-5.9); Red Cell Distribution Width 14.7 % (11.6-14.8); White Blood Cell Count 7.7 X10^3/uL (4.5-11.0)
[2021-04-22 13:47] LABS: Alanine Aminotransferase 20 IU/L (<50); Albumin 3.8 g/dL (3.5-5.0); Albumin Globulin Ratio 1.4 (1.0-2.8); Alkaline Phosphatase 122 U/L (38-126); Aspartate Aminotransferase 25 IU/L (17-59); BUN Creatinine Ratio 25.3 (6-22); Bilirubin Total 0.2 mg/dL (0.2-1.3); Blood Urea Nitrogen 24 mg/dL (9-20); Calcium 9.4 mg/dL (8.4-10.2); Carbon Dioxide 25 mmol/L (22-32); Chloride 109 mmol/L (98-107); Estimated Glomerular Filt Rate > 60.0 mL/min (>60); Globulin 2.7 g/dL (1.7-4.1); Glucose 83 mg/dL (80-110); HEMOLYSIS < 15 (0-50); Potassium 4.7 mmol/L (3.4-5.1); Sodium 140 mmol/L (137-145); Total Protein 6.5 g/dL (6.3-8.2)
[2021-04-22 14:16] LABS: Prostate Specific Antigen < 0.064 ng/mL (0.10-4.00)
== END ==
PROVIDERS: Family Provider Internal Medicine; PCP Internal Medicine; Referring Provider Urology; Visit Provider Urology
DX: K76.89 Other specified diseases of liver (principal); K76.0 Fatty (change of) liver, not elsewhere classified; C67.9 Malignant neoplasm of bladder, unspecified; Z85.46 Personal history of malignant neoplasm of prostate; Z92.21 Personal history of antineoplastic chemotherapy; Z98.890 Other specified postprocedural states; Z93.2 Ileostomy status
CPT/HCPCS: 36415; 76700; 80053; 84153; 85025

== ENCOUNTER → 2021-05-24 10:08 | Outpatient (CLI) | payer MEDICARE, OTHER, SELFPAY ==
[2021-05-24 11:54] LABS: Hemoglobin A1C% w Est Avg Glu 5.8 % (4.0-6.0)
[2021-05-26 11:02] LABS: Cholesterol, Total 140 mg/dL (100-199); HDL-Cholesterol 37 mg/dL (>39); LDL Particle 1009 nmol/L (<1000); LDL Size 20.9 nm (>20.5); LDL-Cholsterol 76 mg/dL (0-99); LP-IR Score 41 (<=45); Small LDL- Particle 374 nmol/L (<=527); Triglycerides 157 mg/dL (0-149)
== END ==
PROVIDERS: Family Provider Internal Medicine; PCP Internal Medicine; Referring Provider Internal Medicine; Visit Provider Internal Medicine
DX: Z13.220 Encounter for screening for lipoid disorders (principal); R73.03 Prediabetes; R73.01 Impaired fasting glucose; E66.01 Morbid (severe) obesity due to excess calories
CPT/HCPCS: 36415; 80061; 83036; 83704

== ENCOUNTER → 2021-10-07 11:44 | Outpatient (CLI) | payer MEDICARE, OTHER, SELFPAY ==
--- NOTE | 2021-10-07 | DI.CT.S_ITS ---
PROCEDURE: CT CHEST WO CON INDICATIONS: cancer screnning exam TECHNIQUE: Noncontrast 2.0-2.5 mm thick sections acquired from the pulmonary apices to the posterior costophrenic angles. 7 mm thick axial MIP, and 5 mm coronal and sagittal reformats were then acquired. A low radiation dose technique was utilized. COMPARISON: [facility], CT, THORAX WITH CONTRAST, 02/11/2013, 8:16. [facility], CT, CT ABDOMEN PELVIS WO/W CON, 03/02/2018, 10:29. FINDINGS: Image quality: Diagnostic, given the low radiation dose technique. Lungs and pleura: 2 mm subpleural pulmonary nodule, posterior inferior right upper lobe, image 151/3. This was present on the previous study from 2012, and is a benign pulmonary nodule. 1 mm pulmonary nodule, subpleural location, left lower lobe, image 208/3. This was present in 2012, and is also a benign pulmonary nodule. No new or increasing pulmonary nodules. Mediastinum: Heart size is normal. No pericardial effusion. Minimal coronary artery calcifications. No mediastinal adenopathy by size criteria. Thoracic aorta and central pulmonary arteries are normal in size. Esophagus is normal in caliber. No hiatal hernia. Bones and chest wall: No suspicious bony lesions. No vertebral body compression fractures. No axillary or supraclavicular adenopathy by size criteria. Thyroid gland is unremarkable as visualized. Abdomen: Prominent right lobe liver cyst. Visualized upper abdomen solid organs and bowel loops appear normal in the absence of contrast. IMPRESSION: 1. LungRads Category 1: Negative. No nodules and/or definitely benign nodules. 2. Annual followup low dose noncontrast CT of the chest is recommended for lung cancer screening Dictated by: Shoaib Ybarra M.D. on 10/07/2021 at 15:47 Approved by: Shoaib Ybarra M.D. on 10/07/2021 at 16:04
== END ==
PROVIDERS: Family Provider Internal Medicine; PCP Internal Medicine; Referring Provider Internal Medicine; Visit Provider Internal Medicine
DX: Z12.2 Encounter for screening for malignant neoplasm of respiratory organs (principal)
CPT/HCPCS: 71250

== ENCOUNTER → 2021-11-11 08:58 | Outpatient (CLI) | payer MEDICARE, OTHER, SELFPAY ==
--- NOTE | 2021-11-11 09:01 | DI.US.S_ITS ---
PROCEDURE: US ABD AORTA ANEURYSM SCREEN INDICATIONS: Encounter for screening for cardiovascular disorde TECHNIQUE: Real time scanning was performed of the aorta and iliac arteries, with image documentation. COMPARISON: None. FINDINGS: Aorta: Proximal aortic diameter measures 2.9 cm. Mid-aorta measures 2.4 cm. Distal aortic diameter is 2.3 cm. Iliac arteries: Right common iliac artery measures 1.1 cm. Left common iliac artery measures 1.3 cm. IMPRESSION: No abdominal aortic aneurysm. Recommend follow-up screening ultrasound in 5 years. Approved by: Aurelia Salomon MD, PhD on 11/11/2021 at 10:43
[2021-11-11 13:56] LABS: Alanine Aminotransferase 18 IU/L (<50); Albumin 3.8 g/dL (3.5-5.0); Albumin Globulin Ratio 1.5 (1.0-2.8); Alkaline Phosphatase 99 U/L (38-126); Aspartate Aminotransferase 24 IU/L (17-59); Bilirubin Total 0.3 mg/dL (0.2-1.3); Bilirubin Unconjugated 0.5 mg/dL (0.0-1.1); Globulin 2.5 g/dL (1.7-4.1); HEMOLYSIS < 15 (0-50); Total Protein 6.3 g/dL (6.3-8.2)
[2021-11-11 14:25] LABS: Prostate Specific Antigen < 0.064 ng/mL (0.10-4.00)
== END ==
PROVIDERS: Urology; Family Provider Internal Medicine; PCP Internal Medicine; Referring Provider Internal Medicine; Visit Provider Internal Medicine
DX: Z85.46 Personal history of malignant neoplasm of prostate (principal); Z13.6 Encounter for screening for cardiovascular disorders; C67.9 Malignant neoplasm of bladder, unspecified; D63.8 Anemia in other chronic diseases classified elsewhere
CPT/HCPCS: 36415; 76706; 80076; 84153

== ENCOUNTER → 2021-12-02 08:06 | Outpatient (CLI) | payer MEDICARE, OTHER, SELFPAY ==
[2021-12-02 09:33] LABS: Add Manual Diff / Slide Review NO; Basophils Absolute Auto 0 /uL (0-100); Basophils Percent Auto 0.4 % (0-2); Eosinophils Absolute Auto 600 /uL (0-450); Eosinophils Percent Auto 7.5 % (2-4); Hematocrit 41.3 % (41-53); Hemoglobin 14.1 g/dL (13.5-17.5); Lymphocytes Absolute Auto 1900 /uL (1100-4500); Lymphocytes Percent Auto 25.2 % (25-40); Mean Corpuscular HGB Conc 34.1 % (30-36); Mean Corpuscular Hemoglobin 30.6 PG (26-34); Mean Corpuscular Volume 89.8 fL (80-100); Monocytes Absolute Auto 500 /uL (0-900); Monocytes Percent Auto 6.9 % (3-14); Neutrophils Absolute Auto 4500 /uL (1500-7000); Platelet Count 165 X10^3/uL (150-400); Red Blood Cell Count 4.59 X10^6/uL (4.5-5.9); White Blood Cell Count 7.4 X10^3/uL (4.5-11.0)
[2021-12-02 09:57] LABS: Alanine Aminotransferase 19 IU/L (<50); Albumin Globulin Ratio 1.3 (1.0-2.8); Alkaline Phosphatase 118 U/L (38-126); Aspartate Aminotransferase 24 IU/L (17-59); BUN Creatinine Ratio 23.6 (6-22); Bilirubin Total 0.3 mg/dL (0.2-1.3); Blood Urea Nitrogen 25 mg/dL (9-20); Carbon Dioxide 24 mmol/L (22-32); Chloride 109 mmol/L (98-107); Estimated Glomerular Filt Rate > 60 mL/min (>60); Glucose 123 mg/dL (80-110); HEMOLYSIS < 15 (0-50); Potassium 4.9 mmol/L (3.4-5.1); Sodium 139 mmol/L (137-145)
== END ==
PROVIDERS: Family Provider Internal Medicine; PCP Internal Medicine; Referring Provider Urology; Visit Provider Urology
DX: C67.9 Malignant neoplasm of bladder, unspecified (principal); D63.8 Anemia in other chronic diseases classified elsewhere; Z85.46 Personal history of malignant neoplasm of prostate; Z90.6 Acquired absence of other parts of urinary tract; Z90.79 Acquired absence of other genital organ(s); Z92.21 Personal history of antineoplastic chemotherapy; Z96.659 Presence of unspecified artificial knee joint; Z98.890 Other specified postprocedural states
CPT/HCPCS: 36415; 80053; 85025

== ENCOUNTER → 2022-08-01 16:27 | Outpatient (CLI) | payer MEDICARE, OTHER, SELFPAY ==
--- NOTE | 2022-08-01 16:29 | DI.US.S_ITS ---
PROCEDURE: US RENAL COMPLETE INDICATIONS: Bladder cancer, ileostomy, rule out hydronephrosis TECHNIQUE: Real-time scanning was performed of the kidneys, with image documentation. COMPARISON: [facility], US, US RENAL COMPLETE, 06/30/2019, 14:19. FINDINGS: Kidneys: Kidneys are normal in size. Right kidney measures 12.1 cm long; left kidney measures 10.7 cm long. Right renal cortical thickness is 1.5 cm; left renal cortical thickness is 2.1 cm. Renal cortical echotexture is normal. Left pelviectasis or mild hydronephrosis appears less prominent when compared to the ultrasound from 06/30/2019. No right-sided hydronephrosis. Bladder: Status post cystectomy. Miscellaneous: No free pelvic fluid. Simple cyst again noted in the right hepatic lobe measuring up to 6 cm in maximum dimension. IMPRESSION: 1. Left pelviectasis versus mild hydronephrosis. 2. Status post cystectomy. Approved by: Daniel Nolasco M.D. on 08/01/2022 at 21:47
== END ==
PROVIDERS: Family Provider Internal Medicine; PCP Internal Medicine; Referring Provider Urology; Visit Provider Urology
DX: C67.9 Malignant neoplasm of bladder, unspecified (principal); K76.89 Other specified diseases of liver; Z93.2 Ileostomy status; Z90.6 Acquired absence of other parts of urinary tract; Z98.890 Other specified postprocedural states
CPT/HCPCS: 76770

== ENCOUNTER → 2022-08-13 10:13 | Outpatient (CLI) | payer MEDICARE, OTHER, SELFPAY ==
[2022-08-13 10:55] LABS: Hemoglobin A1C% w Est Avg Glu 6.2 % (4.0-6.0)
[2022-08-13 11:00] LABS: BUN Creatinine Ratio 24.8 (6-22); Blood Urea Nitrogen 26 mg/dL (9-20); Carbon Dioxide 24 mmol/L (22-32); Chloride 107 mmol/L (98-107); Estimated Glomerular Filt Rate > 60 mL/min (>60); Glucose 115 mg/dL (80-110); HEMOLYSIS < 15 (0-50); Potassium 4.8 mmol/L (3.4-5.1); Sodium 140 mmol/L (137-145)
== END ==
PROVIDERS: Family Provider Internal Medicine; PCP Family Medicine; Referring Provider Urology; Visit Provider Urology
DX: R73.01 Impaired fasting glucose (principal); C67.9 Malignant neoplasm of bladder, unspecified; Z90.6 Acquired absence of other parts of urinary tract; Z92.21 Personal history of antineoplastic chemotherapy; Z98.890 Other specified postprocedural states
CPT/HCPCS: 36415; 80048; 83036

== ENCOUNTER → 2022-12-03 14:22 | Outpatient (CLI) | payer MEDICARE, OTHER, SELFPAY | PROVIDERS: Family Provider Internal Medicine; PCP Family Medicine; Referring Provider Orthopaedic Surgery Foot and Ankle Surgery; Visit Provider Surgery | DX: N99.528 Other complication of incontinent external stoma of urinary tract (principal) | CPT/HCPCS: 99203; 99213 ==

== ENCOUNTER → 2022-12-10 12:39 | Outpatient (CLI) | payer MEDICARE, OTHER, SELFPAY | PROVIDERS: Family Provider Internal Medicine; PCP Family Medicine; Referring Provider Family Medicine; Visit Provider Surgery | DX: Z93.59 Other cystostomy status (principal) | CPT/HCPCS: 99212 ==

== ENCOUNTER → 2023-02-05 16:12 | Outpatient (CLI) | payer MEDICARE, OTHER, SELFPAY ==
[2023-02-06 03:36] LABS: x Labcorp Estim. Avg Glu (eAG) 131 mg/dL (.); x Labcorp Hemoglobin A1c 6.2 % (4.8-5.6)
== END ==
PROVIDERS: Family Provider Internal Medicine; PCP Family Medicine; Referring Provider Family Medicine; Visit Provider Family Medicine
DX: R73.01 Impaired fasting glucose (principal)
CPT/HCPCS: 36415; 83036

== ENCOUNTER → 2023-02-19 14:41 | Outpatient (CLI) | payer MEDICARE, OTHER, SELFPAY ==
--- NOTE | 2023-02-19 14:42 | DI.US.S_ITS ---
PROCEDURE: US RENAL COMPLETE INDICATIONS: HYDRONEPHROSIS TECHNIQUE: Real-time scanning was performed of the kidneys and bladder, with image documentation. COMPARISON: [facility], CT, CT ABDOMEN PELVIS WO/W CON, 03/02/2018, 10:29. [facility], US, US RENAL COMPLETE, 08/01/2022, 16:43. FINDINGS: Kidneys: Kidneys are normal in size. Right kidney measures 11.4 cm long; left kidney measures 10.6 cm long. Right renal cortical thickness is 2.4 cm; left renal cortical thickness is 2.3 cm. Renal cortical echotexture is normal. No hydronephrosis or nephrolithiasis. A hypodense cystic lesion or mass is visualized off the lower pole of the left kidney which measures 1.5 x 1.7 x 1.7 cm. Bladder: Surgically absent Miscellaneous: No free pelvic fluid. IMPRESSION: 1. No hydronephrosis. 2. Questionable left renal mass versus cystic lesion which is incompletely characterized by ultrasound. Renal mass protocol CT could be used to further characterize findings. Dictated by: Sujatha Alva M.D. on 02/20/2023 at 14:52 Approved by: Sujatha Alva M.D. on 02/20/2023 at 14:58
== END ==
PROVIDERS: Family Provider Internal Medicine; PCP Family Medicine; Referring Provider Urology; Visit Provider Urology
DX: N13.39 Other hydronephrosis (principal)
CPT/HCPCS: 76770

== ENCOUNTER → 2023-02-24 11:11 | Outpatient (CLI) | payer MEDICARE, OTHER, SELFPAY ==
[2023-02-24 12:51] LABS: Add Manual Diff / Slide Review NO; Basophils Absolute Auto 0 /uL (0-100); Basophils Percent Auto 0.4 % (0-2); Eosinophils Absolute Auto 300 /uL (0-450); Eosinophils Percent Auto 4.8 % (2-4); Hematocrit 40.5 % (41-53); Hemoglobin 13.4 g/dL (13.5-17.5); Lymphocytes Absolute Auto 1800 /uL (1100-4500); Lymphocytes Percent Auto 26.4 % (25-40); Mean Corpuscular HGB Conc 33.2 % (30-36); Mean Corpuscular Hemoglobin 30.4 PG (26-34); Mean Corpuscular Volume 91.6 fL (80-100); Monocytes Absolute Auto 500 /uL (0-900); Monocytes Percent Auto 7.6 % (3-14); Neutrophils Absolute Auto 4200 /uL (1500-7000); Neutrophils Percent Auto 60.8 % (50-75); Platelet Count 160 X10^3/uL (150-400); Red Blood Cell Count 4.42 X10^6/uL (4.5-5.9); Red Cell Distribution Width 13.8 % (11.6-14.8); White Blood Cell Count 6.9 X10^3/uL (4.5-11.0)
[2023-02-24 13:13] LABS: BUN Creatinine Ratio 24.1 (6-22); Blood Urea Nitrogen 26 mg/dL (9-20); Calcium 9.1 mg/dL (8.4-10.2); Carbon Dioxide 23 mmol/L (22-32); Chloride 107 mmol/L (98-107); Estimated Glomerular Filt Rate > 60 mL/min (>60); Glucose 98 mg/dL (80-110); HEMOLYSIS < 15 (0-50); Potassium 4.7 mmol/L (3.4-5.1); Sodium 138 mmol/L (137-145)
== END ==
PROVIDERS: Family Provider Internal Medicine; PCP Family Medicine; Referring Provider Urology; Visit Provider Urology
DX: C61 Malignant neoplasm of prostate (principal); N13.39 Other hydronephrosis; Z85.51 Personal history of malignant neoplasm of bladder; Z85.46 Personal history of malignant neoplasm of prostate; Z92.21 Personal history of antineoplastic chemotherapy
CPT/HCPCS: 36415; 80048; 85025

== ENCOUNTER → 2023-03-02 08:46 | Outpatient (CLI) | payer MEDICARE, OTHER, SELFPAY ==
--- NOTE | 2023-03-02 08:47 | DI.CT.S_ITS ---
PROCEDURE: CT ABDOMEN RENAL PROTOCOL INDICATIONS: Evaluate left renal lesion noted on ultrasound TECHNIQUE: Optional 5 mm thick noncontrast images acquired from the diaphragm to the iliac crests. After the administration of intravenous contrast, 5 mm thick images again acquired from the diaphragm to the iliac crests in the arterial and urographic phases. 5 mm thick coronal and sagittal reformats were then acquired. For radiation dose reduction, the following was used: automated exposure control, adjustment of mA and/or kV according to patient size. COMPARISON: [facility], CT, CT ABDOMEN PELVIS WO/W CON, 03/02/2018, 10:29. [facility], US, US RENAL COMPLETE, 02/19/2023, 14:45. FINDINGS: Image quality: Good Lower chest: scattered scarring and atelectasis in the lower lungs. No hiatal hernia. Normal heart size. Solid organs: Suspected hepatic steatosis. Right lobe liver cyst again seen. Gallbladder is unremarkable. No pathologic dilation of the biliary tree or pancreatic duct. [id number]-cz-[id number] pancreatic parenchymal atrophy. No splenomegaly. Again seen is a 1 cm right adrenal nodule. No hydronephrosis bilaterally. No obstructing stone. Mild bilateral cortical atrophy and small focal areas of scarring. No solid renal mass is identified. Bosniak 1 and 2 renal lesions are present, for which no dedicated followup is necessary per 2019 proposed guidelines. The sonographic lesion in question represents a nonenhancing cysts from the inferior portion of the left kidney measuring up to 1.5 cm. No ureter filling defects. Partially seen urinary diversion changes. Vessels and lymph nodes: Portal vein is patent. No pathologic lymph nodes by size criteria or abdominal aortic aneurysm. Bowel and peritoneum: The no evidence of small bowel obstruction, pathologic ascites, or abscess. Body wall: Midline ventral abdominal wall fat containing hernia measuring up to 2.9 cm at the neck. Bones: No acute or suspicious osseous finding. Degenerative changes are present. The IMPRESSION: Bosniak 1 and 2 renal lesions are present, for which no dedicated followup is necessary per 2019 proposed guidelines. Previous sonographic abnormality correlates to to a nonenhancing cyst at the left inferior pole. Scattered areas of cortical scarring. No hydronephrosis. No obstructing stones. Partially seen urinary diversion changes. Other findings as above. Dictated by: Joesph Gamboa M.D. on 03/02/2023 at 10:21 Approved by: Joesph Gamboa M.D. on 03/02/2023 at 10:28
== END ==
PROVIDERS: Family Provider Internal Medicine; PCP Family Medicine; Referring Provider Urology; Visit Provider Urology
DX: N28.9 Disorder of kidney and ureter, unspecified (principal); K43.9 Ventral hernia without obstruction or gangrene; K76.89 Other specified diseases of liver; E27.9 Disorder of adrenal gland, unspecified; K86.89 Other specified diseases of pancreas; J98.4 Other disorders of lung; Z85.46 Personal history of malignant neoplasm of prostate; Z85.51 Personal history of malignant neoplasm of bladder
CPT/HCPCS: 74170; Q9967

== ENCOUNTER → 2023-05-04 10:46 | Outpatient (CLI) | payer MEDICARE, OTHER, SELFPAY ==
[2023-05-04 12:15] LABS: Hemoglobin A1C% w Est Avg Glu 5.9 % (4.0-6.0)
== END ==
PROVIDERS: Family Provider Internal Medicine; PCP Family Medicine; Referring Provider Family Medicine; Visit Provider Family Medicine
DX: R73.01 Impaired fasting glucose (principal)
CPT/HCPCS: 36415; 83036

== ENCOUNTER → 2023-07-23 11:41 | Outpatient (CLI) | payer MEDICARE, OTHER, SELFPAY ==
--- NOTE | 2023-07-23 11:44 | DI.MRI.S_ITS ---
PROCEDURE: MR LUMBAR SPINE WO CON INDICATIONS: low back with radiculopathy TECHNIQUE: Noncontrast sagittal T1 spin echo and T2 fast echo, sagittal STIR, and T2 fast spin echo through the lumbar spine. In cases with scoliosis, additional coronal T2 fast spin echo may be performed. COMPARISON: [facility], MR, MR LUMBAR SPINE WO/W CON, 08/25/2019, 16:27. FINDINGS: Image quality: Excellent. Alignment and Curvature: There is normal bony alignment. Bone Marrow: Marrow is of normal overall signal. No acute vertebral body compression fractures. Spinal Cord: Conus medullaris terminates at the L1 level. Visualized cord demonstrates normal signal and size. Paraspinous Soft Tissues: No paravertebral masses. T12-L1: Mild disc desiccation and height loss. Broad-based disc bulge. Mild facet ligamentum flavum hypertrophy. No canal stenosis. No foraminal stenosis. Findings are unchanged from the study dated August 25, 2019. L1-L2: Mild disc desiccation and height loss. Mild disc bulge. Mild canal stenosis. Moderate facet and ligamentum flavum hypertrophy. Mild bilateral foraminal stenosis. Findings are unchanged. There is a small focal posterior high-intensity zone. L2-L3: Mild disc desiccation and height loss. Broad-based disc bulge. Severe facet ligamentum flavum hypertrophy. Moderate canal stenosis. Mild bilateral foraminal stenosis. Findings are similar to the prior study. There is a small focal posterior high-intensity zone. L3-L4: Mild disc desiccation and height loss. Broad-based disc bulge. Severe facet ligamentum flavum hypertrophy. Moderate canal stenosis. Moderate bilateral foraminal stenosis. Findings are similar to the prior study. L4-L5: Mild disc desiccation and height loss. Broad-based disc bulge. Severe facet ligamentum flavum hypertrophy. Severe canal stenosis. Moderate bilateral foraminal narrowing. Findings are similar to the prior study. L5-S1: Mild disc desiccation and height loss. Severe facet ligamentum flavum hypertrophy. Mild disc bulge. No canal stenosis. Moderate right and mild left foraminal narrowing. Findings are unchanged. IMPRESSION: 1. Multilevel broad-based disc bulges and facet and ligamentum flavum hypertrophy with resultant canal stenosis, most severe at L4-5. Findings are similar to the prior study dated August 25, 2019. 2. Multilevel foraminal narrowing which is moderate in degree bilaterally at L3-4, L4-5, and on the right at L5-S1. 3. 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 These may be new when compared with the prior study. Dictated by: Sujatha Alva M.D. on 07/23/2023 at 13:52 Approved by: Sujatha Alva M.D. on 07/23/2023 at 14:03
== END ==
LOC: MRI 11:43
PROVIDERS: Family Provider Internal Medicine; PCP Family Medicine; Referring Provider Family Medicine; Visit Provider Family Medicine
DX: M51.36 Other intervertebral disc degeneration, lumbar region (principal); M51.37 Other intervertebral disc degeneration, lumbosacral region; M47.816 Spondylosis without myelopathy or radiculopathy, lumbar region; M47.817 Spondylosis without myelopathy or radiculopathy, lumbosacral region; M48.061 Spinal stenosis, lumbar region without neurogenic claudication; M48.07 Spinal stenosis, lumbosacral region; M54.50 Low back pain, unspecified
CPT/HCPCS: 36415; 72148; 80053; 84403; 85025

== ENCOUNTER → 2023-08-10 09:36 | Outpatient (CLI) | payer MEDICARE, OTHER, SELFPAY ==
[2023-08-10 11:29] LABS: Add Manual Diff / Slide Review NO; Basophils Absolute Auto 0 /uL (0-100); Basophils Percent Auto 0.5 % (0-2); Eosinophils Absolute Auto 300 /uL (0-450); Eosinophils Percent Auto 5.5 % (2-4); Hematocrit 41.2 % (41-53); Hemoglobin 13.9 g/dL (13.5-17.5); Lymphocytes Absolute Auto 1500 /uL (1100-4500); Lymphocytes Percent Auto 24.6 % (25-40); Mean Corpuscular HGB Conc 33.8 % (30-36); Mean Corpuscular Hemoglobin 30.6 PG (26-34); Mean Corpuscular Volume 90.5 fL (80-100); Monocytes Absolute Auto 500 /uL (0-900); Monocytes Percent Auto 8.7 % (3-14); Neutrophils Absolute Auto 3700 /uL (1500-7000); Neutrophils Percent Auto 60.7 % (50-75); Platelet Count 164 X10^3/uL (150-400); Red Blood Cell Count 4.55 X10^6/uL (4.5-5.9); Red Cell Distribution Width 13.8 % (11.6-14.8); White Blood Cell Count 6.2 X10^3/uL (4.5-11.0)
[2023-08-10 11:43] LABS: HEMOLYSIS < 15 (0-50); Iron 86 ug/dL (49-181)
[2023-08-10 11:49] LABS: BUN Creatinine Ratio 26.9 (6-22); Blood Urea Nitrogen 28 mg/dL (9-20); Calcium 9.5 mg/dL (8.4-10.2); Carbon Dioxide 23 mmol/L (22-32); Chloride 107 mmol/L (98-107); Estimated Glomerular Filt Rate > 60 mL/min (>60); Glucose 107 mg/dL (80-110); HEMOLYSIS < 15 (0-50); Hemoglobin A1C% w Est Avg Glu 6.1 % (4.0-6.0); Potassium 4.9 mmol/L (3.4-5.1); Sodium 137 mmol/L (137-145)
[2023-08-10 11:54] LABS: Percent Iron Saturation 27 % (20-50); Total Iron Binding Capacity 318 ug/dL (261-462); Transferrin 263 mg/dL (206-381)
[2023-08-10 12:20] LABS: Prostate Specific Antigen Scrn < 0.064 ng/mL (0.1-4.0)
[2023-08-10 12:23] LABS: Ferritin 30 ng/mL (18-464)
[2023-08-10 15:59] LABS: Hep C Virus Ab w/Reflex Quant NEGATIVE s/c (NEGATIVE)
== END ==
LOC: LAB 09:38
PROVIDERS: Internal Medicine Hematology & Oncology; Urology; Family Provider Internal Medicine; PCP Family Medicine; Referring Provider Family Medicine; Visit Provider Family Medicine
DX: N13.30 Unspecified hydronephrosis (principal); R73.01 Impaired fasting glucose; Z12.5 Encounter for screening for malignant neoplasm of prostate; D64.9 Anemia, unspecified; Z90.6 Acquired absence of other parts of urinary tract; Z85.46 Personal history of malignant neoplasm of prostate; Z90.79 Acquired absence of other genital organ(s); E66.01 Morbid (severe) obesity due to excess calories; Z11.59 Encounter for screening for other viral diseases; Z92.21 Personal history of antineoplastic chemotherapy
CPT/HCPCS: 36415; 80048; 82728; 83036; 83540; 83550; 85025; 86803; G0103

== ENCOUNTER → 2023-08-15 09:22 | Outpatient (CLI) | payer MEDICARE, OTHER, SELFPAY ==
[2023-08-17 11:25] LABS: Fecal Immunochemical Test Negative (Negative)
== END ==
LOC: LAB 09:23
PROVIDERS: Family Provider Internal Medicine; PCP Family Medicine; Referring Provider Family Medicine; Visit Provider Family Medicine
DX: Z12.11 Encounter for screening for malignant neoplasm of colon (principal)
CPT/HCPCS: 82274

== ENCOUNTER → 2023-08-29 10:26 | Outpatient (CLI) | payer MEDICARE, OTHER, SELFPAY ==
--- NOTE | 2023-08-29 10:30 | DI.RAD.S_ITS ---
PROCEDURE: XR LUMBAR SPINE MIN 4V INDICATIONS: BACK PAIN TECHNIQUE: 5 views of the lumbar spine were acquired, including bilateral oblique views. COMPARISON: [facility], , XR LUMBAR SPINE MIN 4V, 09/20/2020, 8:14. FINDINGS: Bones: 5 nonrib-bearing vertebrae are present. There is normal bony alignment. No vertebral body compression fractures. No suspicious bony lesions. Soft tissues: Overlying bowel gas pattern is normal. No suspicious soft tissue calcifications. Oblique images: No pars defects. IMPRESSION: No acute bony abnormality. Approved by: Dane Ferreira M.D. on 08/29/2023 at 10:42
== END ==
LOC: RAD 10:29
PROVIDERS: Family Provider Internal Medicine; PCP Family Medicine; Referring Provider Physical Medicine & Rehabilitation; Visit Provider Physical Medicine & Rehabilitation
DX: M54.9 Dorsalgia, unspecified (principal)
CPT/HCPCS: 72110

== ENCOUNTER → 2023-09-05 09:06 | Outpatient (CLI) | payer MEDICARE, OTHER, SELFPAY ==
[2023-09-05 11:09] LABS: Cholesterol 162 mg/dL (140-199); HDL Cholesterol 41 mg/dL (40-60); LDL Cholesterol Calculated 84 mg/dL (<100); Triglycerides 186 mg/dL (35-150)
== END ==
LOC: LAB 09:07
PROVIDERS: Family Provider Internal Medicine; PCP Family Medicine; Referring Provider Family Medicine; Visit Provider Family Medicine
DX: E78.5 Hyperlipidemia, unspecified (principal)
CPT/HCPCS: 36415; 80061

== ENCOUNTER → 2023-09-17 07:42 | Outpatient (CLI) | payer MEDICARE, OTHER, SELFPAY ==
--- NOTE | 2023-09-17 08:00 | DI.US.S_ITS ---
PROCEDURE: US RENAL COMPLETE INDICATIONS: History of cystectomy with ileal loop TECHNIQUE: Real-time scanning was performed of the kidneys and bladder, with image documentation. COMPARISON: [facility], CT, CT ABDOMEN RENAL PROTOCOL, 03/02/2023, 9:06. FINDINGS: Kidneys: Kidneys are normal in size. Right kidney measures 11.3 cm long; left kidney measures 11.3 cm long. Right renal cortical thickness is 1.3 cm; left renal cortical thickness is 1.6 cm. Renal cortical echotexture is normal. There is trace left hydronephrosis. No right hydronephrosis. No nephrolithiasis of either kidney. No suspicious solid mass lesions. Bladder: Surgically absent. Miscellaneous: No free pelvic fluid. The liver is diffusely echogenic. IMPRESSION: 1. Trace left hydronephrosis. Findings are likely similar to the comparison CT dated March 02, 2023. 2. No right hydronephrosis. No nephrolithiasis. 3. Increased hepatic echogenicity noted likely related to fatty infiltration of the liver but other sources of hepatocellular disease cannot be excluded. Dictated by: Sujatha Alva M.D. on 09/17/2023 at 9:07 Approved by: Sujatha Alva M.D. on 09/17/2023 at 9:14
== END ==
PROVIDERS: Family Provider Internal Medicine; PCP Family Medicine; Referring Provider Urology; Visit Provider Urology
DX: N28.9 Disorder of kidney and ureter, unspecified (principal); E66.01 Morbid (severe) obesity due to excess calories; Z68.41 Body mass index [BMI] 40.0-44.9, adult; Z85.51 Personal history of malignant neoplasm of bladder; N13.39 Other hydronephrosis; Z85.46 Personal history of malignant neoplasm of prostate; Z92.21 Personal history of antineoplastic chemotherapy; Z90.6 Acquired absence of other parts of urinary tract; Z90.79 Acquired absence of other genital organ(s); Z93.6 Other artificial openings of urinary tract status
CPT/HCPCS: 76770; 99214

== ENCOUNTER → 2023-12-01 08:17 | Outpatient (CLI) | payer MEDICARE, OTHER, SELFPAY | PROVIDERS: Family Provider Internal Medicine; PCP Family Medicine; Visit Provider Urology | DX: Z93.6 Other artificial openings of urinary tract status (principal) | CPT/HCPCS: 87077; 87086 ==

== ENCOUNTER 2024-01-12 15:21 | Outpatient (CLI) | payer MEDICARE, OTHER, SELFPAY ==
[2024-01-12] VITALS (10 sets, daily range): BP systolic 102–128; BP diastolic 58–70; PULSE 55–68; RESP 13–22; TEMP 36.2; O2SAT 93–97
--- NOTE | 2024-01-12 16:00 | DI.RAD.S_ITS ---
PROCEDURE: PAIN L/S FACET INJ/BLK 1ST MARCELA INDICATIONS: Bilateral L3-L4 and L5 medial branch block LA COMPARISON: None. FINDINGS: Fluoroscopic spot filming was performed to verify placement of spinal needles at the bilateral L3 through L5 level(s), as labeled on the films. Appropriate location(s) of the needle tip(s) was confirmed by injection of iodinated contrast. IMPRESSION: Fluoroscopic support for bilateral lumbar medial branch blocks. Please see separate procedure note for further details. Dictated by: Serg oTrres M.D. on 01/13/2024 at 7:38 Approved by: Serg Torres M.D. on 01/13/2024 at 7:39
[2024-01-12] MEDS: MIDAZOLAM 2 MG/2 ML VIAL IV ×2 (16:50→16:58)
[2024-01-12] MEDS: BUPIVACAINE 0.5% (PF) 10 ML VIAL 5 ML INJ (16:54)
[2024-01-12] MEDS: iopamidoL 15 ML VIAL 3 ML INJ (16:54)
[2024-01-12] MEDS: LIDOCAINE 1% 20 ML 5 ML INJ (16:54)
--- NOTE | 2024-01-12 17:10 | PM.PROC.IR.1 ---
Date/Time/Diagnoses Date of procedure: 01/12/24 Time of procedure: 17:10 Pre-procedure diagnosis: FACET ARTHROPATHY Post-procedure diagnosis: same Procedure Notes Procedure: 1. BILATERAL L3, L4 AND L5 DIAGNOSTIC MB BLOCKS Indications: Carlos is referred by Dr. Rodriguez for treatment of Bilateral Axial LBP. Physician: Carlos Vines Total Fluoroscopy time (seconds): 18 Total sedation minutes: 15 Complications: none Procedure in detail & Post-procedure care: DESCRIPTION OF PROCEDURE Fluoroscopically guided, contrast-controlled bilateral L3, L4 AND L5 medial branch blocks with 0.5cc of 0.5% Marcaine. Following review of allergy and review of potential side effects and complications, including, but not necessarily limited to, infection, allergic reaction, local tissue breakdown, nerve injury, paralysis, stroke and possible , the patient indicated that the patient understood and agreed to proceed. An informed consent document was signed by the patient, witnessed by a nurse, and placed in the patient's chart. After review of previous anaesthesic history and IV conscious sedation the patient was deemed safe to proceed with today's procedure with IV conscious sedation as ASA class II designation. Safety time-out was performed to confirm patient ID, procedure to be performed and site of procedure. IV sedation was accomplished with a combination of 4mg of Versed was administered by the RN after DO order, titrated to patient comfort during the course of the procedure while the patient remained responsive to all verbal commands In the prone position, following sterile prep and drape of the lumbar region, the right L3, L4 AND L5 anatomical location of the medial branch of the dorsal ramus was identified fluoroscopically. Subsequently an anesthetic skin wheal using 1% lidocaine solution was initiated at each of the anatomical spots. Subsequently then a 22-gauge 3.5-inch spinal needle was atraumatically introduced and advanced under fluoroscopic guidance at each of the corresponding sites at the right L3, L4 and L5 MB. After negative aspiration, 0.2cc of Isovue 200 was injected, confirming placement without vascular or intrathecal uptake. Subsequently then 0.5cc of 0.5% Marcaine solution was injected at each of the corresponding sites at the right L3, L4 and L5 medial branch locations. The identical procedure was replicated on the left. The patient tolerated the procedure well without signs or symptoms of complications. The patient tolerated the procedure well without signs or symptoms of complications prior to transfer to the recovery area continued monitoring without incident. Post-procedure, the patient was monitored initiating provocative activities to measure the amount of relief from block of the facetogenic pain. The patient reported a VAS of 7 prior to the procedure and a post-procedure VAS of 1. It has been a pleasure to assist in the diagnostic and therapeutic care of your patient. POST OP INSTRUCTIONS The patient was provided with a Pain Log to complete over the next several hours and subsequent days prior to the patient's follow up with the ordering physician. If the patient has assisted living nursing director relief to the solution applied, then they may be a candidate for medial branch rhizotomy. The patient is aware, was provided, once again, with a Pain Log and will follow up with the referring physician for review and clinical correlation
== END 2024-01-12 17:31 | disposition home or self-care (01) ==
PROVIDERS: Family Provider Internal Medicine; PCP Family Medicine; Referring Provider Physical Medicine & Rehabilitation; Visit Provider Physical Medicine & Rehabilitation
DX: M47.816 Spondylosis without myelopathy or radiculopathy, lumbar region (principal)
CPT/HCPCS: 64493; 64494; 99152; J2250

== ENCOUNTER → 2024-01-28 12:18 | Outpatient (CLI) | payer MEDICARE, OTHER, SELFPAY ==
[2024-01-28 13:13] LABS: Add Manual Diff / Slide Review NO; Basophils Absolute Auto 0 /uL (0-100); Basophils Percent Auto 0.4 % (0-2); Eosinophils Absolute Auto 200 /uL (0-450); Eosinophils Percent Auto 3.1 % (2-4); Hematocrit 40.7 % (41-53); Hemoglobin 13.6 g/dL (13.5-17.5); Lymphocytes Absolute Auto 1700 /uL (1100-4500); Lymphocytes Percent Auto 22.1 % (25-40); Mean Corpuscular HGB Conc 33.3 % (30-36); Mean Corpuscular Hemoglobin 30.4 PG (26-34); Mean Corpuscular Volume 91.1 fL (80-100); Monocytes Absolute Auto 600 /uL (0-900); Neutrophils Absolute Auto 5000 /uL (1500-7000); Neutrophils Percent Auto 66.4 % (50-75); Platelet Count 162 X10^3/uL (150-400); Red Blood Cell Count 4.47 X10^6/uL (4.5-5.9); Red Cell Distribution Width 13.7 % (11.6-14.8); White Blood Cell Count 7.6 X10^3/uL (4.5-11.0)
--- NOTE | 2024-01-28 13:16 | EKG_ITS ---
[address] [address] Test Date: 2024-01-28 Pat Name: Carlos Pace Department: Room: Gender: Male Melon Packer: SIM : [id number] Requested By: Order Number: [id number] Reading MD: Nils Montemayor MD Measurements Intervals [place] Rate: 58 P: 89 NV: 212 QRS: -38 QRSD: 114 T: 28 QT: 410 QTc: 402 Interpretive Statements Sinus bradycardia with 1st degree AV block Left axis deviation Incomplete right bundle branch block NO SIGNIFICANT CHANGE FROM PRIOR TRACING Electronically Signed On 01-29-2024 7:25:14 PDT by Nils Montemayor MD
[2024-01-28 13:24] LABS: Hemoglobin A1C% w Est Avg Glu 6.1 % (4.0-6.0)
[2024-01-28 13:37] LABS: BUN Creatinine Ratio 26.7 (6-22); Blood Urea Nitrogen 31 mg/dL (9-20); Calcium 9.1 mg/dL (8.4-10.2); Carbon Dioxide 24 mmol/L (22-32); Chloride 109 mmol/L (98-107); Estimated Glomerular Filt Rate > 60 mL/min (>60); Glucose 102 mg/dL (80-110); HEMOLYSIS < 15 (0-50); Potassium 4.8 mmol/L (3.4-5.1); Sodium 139 mmol/L (137-145)
[2024-01-28 14:54] LABS: Vitamin D 25 Hydroxy (D3) 48.6 ng/mL (30.0-100.0)
[2024-01-28 17:14] LABS: Prealbumin 32.2 mg/dL (17.6-36.0)
== END ==
PROVIDERS: Family Provider Internal Medicine; PCP Family Medicine; Referring Provider Orthopaedic Surgery Adult Reconstructive Orthopaedic Surgery; Visit Provider Orthopaedic Surgery Adult Reconstructive Orthopaedic Surgery
DX: Z01.818 Encounter for other preprocedural examination (principal); R73.9 Hyperglycemia, unspecified; E55.9 Vitamin D deficiency, unspecified; R77.0 Abnormality of albumin
CPT/HCPCS: 36415; 80048; 82040; 82306; 83036; 84134; 85025; 93005; 93010

== ENCOUNTER → 2024-03-10 12:14 | Outpatient (CLI) | payer MEDICARE, OTHER, SELFPAY ==
--- NOTE | 2024-03-10 12:16 | DI.US.S_ITS ---
PROCEDURE: US RENAL COMPLETE INDICATIONS: Ileostomy/mild left hydronephrosis TECHNIQUE: Real-time scanning was performed of the kidneys and bladder, with image documentation. COMPARISON: [facility], , RENAL COMPLETE, 09/17/2023, 7:56. FINDINGS: Kidneys: Kidneys are normal in size. Right kidney measures 10.9 cm long; left kidney measures 9.5 cm long. Right renal cortical thickness is 1.6 cm; left renal cortical thickness is 1.8 cm. Renal cortical echotexture is normal. No hydronephrosis or nephrolithiasis. No suspicious solid mass lesions. Simple bilateral renal cysts. Bladder: Removed. Miscellaneous: No free pelvic fluid. IMPRESSION: No visualized obstruction. Dictated by: Kayli Chaney M.D. on 03/10/2024 at 16:17 Approved by: Kayli Chaney M.D. on 03/10/2024 at 16:18
[2024-03-10 14:23] LABS: Add Manual Diff / Slide Review NO; Basophils Absolute Auto 0 /uL (0-100); Basophils Percent Auto 0.4 % (0-2); Eosinophils Absolute Auto 200 /uL (0-450); Eosinophils Percent Auto 2.3 % (2-4); Hematocrit 40.9 % (41-53); Hemoglobin 13.7 g/dL (13.5-17.5); Lymphocytes Absolute Auto 1700 /uL (1100-4500); Lymphocytes Percent Auto 23.9 % (25-40); Mean Corpuscular HGB Conc 33.6 % (30-36); Mean Corpuscular Hemoglobin 30.3 PG (26-34); Mean Corpuscular Volume 90.4 fL (80-100); Monocytes Absolute Auto 500 /uL (0-900); Monocytes Percent Auto 7.5 % (3-14); Neutrophils Absolute Auto 4700 /uL (1500-7000); Neutrophils Percent Auto 65.9 % (50-75); Platelet Count 177 X10^3/uL (150-400); Red Blood Cell Count 4.53 X10^6/uL (4.5-5.9); Red Cell Distribution Width 13.3 % (11.6-14.8); White Blood Cell Count 7.1 X10^3/uL (4.5-11.0)
[2024-03-10 14:47] LABS: BUN Creatinine Ratio 21.2 (6-22); Blood Urea Nitrogen 28 mg/dL (9-20); Calcium 9.6 mg/dL (8.4-10.2); Carbon Dioxide 21 mmol/L (22-32); Chloride 108 mmol/L (98-107); Estimated Glomerular Filt Rate 57 mL/min (>60); Glucose 89 mg/dL (80-110); HEMOLYSIS < 15 (0-50); Potassium 4.7 mmol/L (3.4-5.1); Sodium 139 mmol/L (137-145)
== END ==
PROVIDERS: Family Provider Internal Medicine; PCP Family Medicine; Referring Provider Urology; Visit Provider Urology
DX: N13.30 Unspecified hydronephrosis (principal); N28.1 Cyst of kidney, acquired; Z85.51 Personal history of malignant neoplasm of bladder; Z90.79 Acquired absence of other genital organ(s); Z90.6 Acquired absence of other parts of urinary tract; Z92.21 Personal history of antineoplastic chemotherapy
CPT/HCPCS: 36415; 76770; 80048; 85025

== ENCOUNTER 2024-03-25 06:15 | Day surgery (SDC) | payer MEDICARE, OTHER, SELFPAY ==
[2024-03-08 09:46] VITALS: BMI 44.9
[2024-03-25] VITALS (11 sets, daily range): BP systolic 80–151; BP diastolic 44–93; PULSE 64–85; RESP 10–18; TEMP 36.1–36.6; O2SAT 92–98; BMI 45.0
--- NOTE | 2024-03-25 06:00 | DI.RAD.S_ITS ---
PROCEDURE: XR KNEE LT 1TO2V INDICATIONS: TKA TECHNIQUE: 2 view(s) of the knee acquired. COMPARISON: None. FINDINGS: Bones: Patient is status post knee joint arthroplasty. Hardware components are in expected positions. Visualized bony structures are intact. Soft tissues: Overlying postoperative changes are noted. IMPRESSION: Expected post-operative appearance of a knee arthroplasty. Dictated by: Aurelia Salomon MD, PhD on 03/28/2024 at 13:00 Approved by: Aurelia Salomon MD, PhD on 03/28/2024 at 13:00
[2024-03-25] MEDS: LACTATED RINGERS 1,000 ML 42 ML IV ×2 (07:00→08:56)
--- NOTE | 2024-03-25 07:38 | PM.PREOP ---
Pre-operative Note Interval Note History & Physical reviewed/Exam performed by Physician: Yes Changes to H&P: No
[2024-03-25] MEDS: CEFAZOLIN VIAL 3 GM in SODIUM CHLORIDE 0.9% 100 ML IV (07:53)
--- NOTE | 2024-03-25 08:21 | SUR.OPER ---
Supine on padded OR bed, head on pillow, arms secured on padded arm boards at <90 degrees abduction, legs uncrossed, safety belt at thigh, tape over blanket over lower legs. Left Leg positioned per procedure.
[2024-03-25] MEDS: ROPIVACAINE/EPI/CLONIDINE/KET 50 ML SYRINGE INJ (08:25)
[2024-03-25] MEDS: TRANEXAMIC ACID 1,000 MG VIAL 1000 MG INJ ×2 (08:27→09:24)
[2024-03-25] MEDS: SODIUM CHLORIDE IRRIG SOLUTION 3,000 ML 3000 ML IRR (09:10)
--- NOTE | 2024-03-25 09:56 | P.OP_ITS ---
Operative Date/Time/Diagnoses Date of procedure: 03/25/24 Pre-op diagnosis: Left knee osteoarthritis Post-op diagnosis: same Procedure & Clinicians Procedure: Left total knee arthroplasty Same procedure as scheduled: Yes Surgeon: Dane Guevara Labor Delivery Rn: Amber Anderson Anesthesia Type: Spinal, Sedation, Peripheral nerve block and Local Operative Notes Estimated Blood Loss (mL): 150 Procedure in detail: Left uncemented Gap-Balanced Chris Persona Medial-Congruent Primary Total Knee Arthroplasty Implants: * Size 9 standard PPS Cruciate Retaining Femoral Component * Size F osseoti Tibial Component [] * Size 13 [Medial Congruent] Polyethylene Insert * [Unresurfaced] Patella Procedure Summary: This 73-year-old male patient has a BMI 45. I discussed the risks associated with perioperative complications in patients with a BMI over 40 with him in detail and explained the steps I would take to attempt to mitigate these risks. Specifically I planned to use a stem extension on his tibia, postoperative antibiotics with cefadroxil, and an incisional wound VAC. he understood these risks and the alternative possibility of losing weight prior to proceeding with surgery and wished to move forward in attempt to lose weight postoperatively. Intraoperatively I found that his bone quality was significantly better than anticipated and therefore changed my initial plan from cemented fixation with a stem extension to uncemented fixation with a keel and pegs on the tibia. This will provide a more durable long-term fixation given the biologic weston and I did not initially anticipate that at his age he would have such high bone quality. He did require a posterior medial release for balancing in extension prior to setting my flexion gap and after the posterior medial release had approximately 1 degree of excess tightness medially relative to laterally. I was willing to accept this given the medial congruent design of the polyethylene insert I was planning to use. His extension gap opened to 12 mm with 40 lb of pressure and I anticipated using a larger polyethylene insert based on that finding. This did in fact turned out to be the case as I was able to achieve full extension with a 13 mm polyethylene with no excess tightness in flexion Procedure in Detail: This patient was seen preoperatively and evaluated for knee pain which was refractory to numerous nonoperative treatment modalities. Their pain correlated with radiographic changes demonstrating significant degeneration in the knee joint. The risks and benefits of continued nonoperative management versus operative management were discussed at length and all of the patient?s questions were answered. Additional educational materials providing further details beyond our discussion in clinic were provided via a publicly available patient education video which included the incidence of medical complications associated with total knee arthroplasty, reasons for revision following total knee arthroplasty, and patient satisfaction rates following total knee arthroplasty. That video can be accessed at [email or web address] . With this understanding of the risks inherent to the procedure, the patient elected to move forward with operative management. Following preoperative optimization, the patient was scheduled for surgery. The patient was met in the preoperative holding area the day of the procedure and all questions were answered. The patient?s nares were swabbed with betadine in order to decolonize them from MRSA. Informed consent was signed and the left limb was marked with indelible ink.? The patient was brought back to the operating room where anesthesia was induced. The patient was transferred to the operating table and all bony prominences were padded. The operative site was prepped and draped in the usual sterile fashion. A second prep stick was utilized following drape placement. The incision was marked corresponding to the medial aspect of the tibial tubercle and the patella. Ioban was wrapped circumferentially around the knee. Prior to incision, tranexamic acid and cefazolin were administered. Templating images were displayed. A timeout procedure was performed verifying the patient?s identity, medical comorbidities, allergies, relevant medications, anesthesia type and the surgical plan. All present were in agreement. The assistance of a physician surgery assistant was required for positioning, room setup, soft tissue retraction and wound closure. Without this assistance, the procedure would have been significantly more challenging and time consuming.?? The tourniquet was inflated prior to incision. I made an anterior incision over the knee, dissected through the subcutaneous tissues and identified the lateral border of the VMO. Medial and lateral soft tissue flaps were developed. A medial parapatellar arthrotomy was performed ensuring that adequate capsular tissue would remain for closure at the conclusion of the procedure. The hip was brought into extension and the medial soft tissues were released off the joint line of the tibia. Tissue overlying the distal anterior femur was released to allow for later assessment for anterior notching but left in place. A portion of the retropatellar fat pad was excised while protecting the patellar tendon. The patella was everted. The patella was [not resurfaced]. Osteophytes were excised and a lateral facetectomy was performed. The patella was released from its everted position.?? I flexed the knee to 90 degrees and placed retractors to allow access to the notch. An opening reamer was used to gain access to the femoral canal and an intramedullary darin was introduced into the canal. Diaphyseal fit was obtained in order to allow a distal femoral resection at 5 degrees relative to the anatomic axis, thereby aiming to achieve mechanical alignment of the eventual implant. A +1 resection was planned and assessed using an kameron wing. I then made the cut using a sagittal saw. This provided additional access to the femoral notch. The ACL and PCL were excised. Retractors were placed on the lateral and medial tibia . I hyperflexed the knee while externally rotating it to sublux the tibia anteriorly. I placed a PCL retractor posteriorly and used this to provide additional anterior subluxation. The remainder of the PCL root was released. An intramedullary reamer was used in the ACL footprint to provide access to the tibial canal. An extramedullary guide was positioned to allow a resection perpendicular to the anatomic and mechanical axes of the tibia, thereby aiming to achieve mechanical alignment of the eventual implant. A [+4 resection off the medial tibia] was planned and the tibial cutting jig was pinned in place. I evaluated the cut depth, varus-valgus alignment and slope of the planned tibial resection and deemed them satisfactory. I cut the tibia with a sagittal saw while using retractors to protect the MCL, patellar tendon, and posterolateral structures.? The knee was repositioned in extension and the Fuzion soft tissue balancing gauge was introduced. This demonstrated that there was excess tension medially relative to laterally When 40 pounds of force was applied to the Fuzion device, the extension gap opened to 12 mm. I moved the knee into 90 degrees of flexion, and the Fuzion device was recalibrated by removing a 9 mm greg to allow assessment of the flexion gap. The Fuzion was placed perpendicular to the resected surface of the tibia and the resected surface of the distal femur. Forty pounds of traction was applied to match the tension of the extension gap. This externally rotated the femur to 5 degrees. Pins were placed in the 12 mm holes. The measured resection guide was placed over the pins to allow sizing. Appropriate sizing was determined and a 4-in-1 block was placed. This was double checked using the Fuzion device to ensure that it would open to an equal distanc e as the extension gap when the same amount of force was applied. The Fuzion block was also used to assess flexion gap symmetry. An kameron wing was used to ensure there would be no anterior notching. Retractors were placed to protect the soft tissues during resection. Captured cuts were performed with a sagittal saw for the anterior and posterior femur as well as the corresponding chamfers.? Trial components were placed and the construct was assessed. Range of motion was assessed by ensuring the knee could achieve full extension and assessing maximum passive knee flexion by elevating the femur and allowing the heel to passively fall towards the buttock. Gap symmetry was assessed by stressing the medial and lateral compartments in both extension and flexion. Laxity was assessed in both extension and flexion and the polyethylene trial was adjusted with shims as necessary. Patellar tracking was assessed with knee flexion. Once satisfied with the construct, I moved forward with implant insertion. Lug holes were drilled in the femur and the tibia was prepped ensuring appropriate sizing and rotation relative to the tibial tubercle.?? The bony ends were irrigated and cement was prepared. Portions of the anterior chamfer cut were utilized as cement restrictors in the femur and tibia where intramedullar rods had been utilized. Cement was placed on the entirety of the undersurface of both the tibial and femoral components. Cement was placed onto the dry tibia and pressurized into the cancellous bone. I impacted the tibial component into place. Cement was removed. The tibia was reduced underneath the femur and placed cement onto the dry surface of the resected femur. I placed the femoral component as well as the intended polyethylene trial. Cement was removed from around the femur. I brought the knee into extension and manually pressurized the construct by pushing on the heel while the cement dried. The knee was bathed in a dilute mixture of betadine and peroxide. A mixture of Ropivacaine, Epinephrine, Clonidine and Toradol was infiltrated throughout the soft tissues into structures including the VMO, patellar tendon, quadriceps tendon, MCL and femoral periosteum. A low adductor canal block was also performed using this mixture unless one had been placed preoperatively by anesthesia. The knee was copiously irrigated with pulse lavage. Once cement had been allowed to dry the knee was again trialed. Range of motion was assessed by ensuring the knee could achieve full extension and assessing maximum passive knee flexion by elevating the femur and allowing the heel to passively fall towards the buttock. Gap symmetry was assessed by stressing the medial and lateral compartments in both extension and flexion. Laxity was assessed in both extension and flexion and the polyethylene trial was adjusted with shims as necessary. Patellar tracking was assessed with knee flexion. The tourniquet was let down and the polyethylene trial was removed. I inspected the knee inspected for excess cement and any residual bleeding. Once hemostasis was achieved I inserted the final polyethylene and ensured appropriate engagement of the dovetail locking mechanism.?? The arthrotomy was closed with absorbable interrupted suture ensuring that this extended to the top of the arthrotomy. This was backed up with running barbed suture throughout the arthrotomy. The skin was closed with 2-0 and 3-0 sutures. Surgical glue was applied and a soft dressing was placed.?The sponge, instrument and needle counts were reported as being correct at the end of the case.??No obvious complications occurred. The patient was transferred from the operating table back to a stretcher. The patient emerged from anesthesia without difficulty and was taken to the PACU in a stable condition.? Plan for aftercare: * Weightbearing as tolerated * Mobilization as soon as the patient has recovered from anesthesia. If physical therapists are unavailable at the time the patient is ready to ambulate, then nursing staff should help patient ambulate * Eliquis 2.5 mg twice per day for DVT prophylaxis * Multimodal pain regimen with no IV opioids ordered * Anticipate discharge home [later today] * Follow up at [facility] in 2 weeks * Detailed postoperative instructions available at [email or web address]
[2024-03-25] MEDS: OXYCODONE IR 5 MG TABLET PO ×2 (10:55→11:28)
[2024-03-25] MEDS: LACTATED RINGERS 1,000 ML 100 ML IV (13:00)
[2024-03-25] MEDS: OXYCODONE IR 10 MG TABLET PO ×2 (13:02→16:00)
[2024-03-25] MEDS: ACETAMINOPHEN 325 MG TABLET 650 MG PO (13:02)
[2024-03-25 14:32] LABS: Hematocrit 36.8 % (41-53); Hemoglobin 12.3 g/dL (13.5-17.5)
--- NOTE | 2024-03-25 15:35 | PT.IIE ---
Current Diagnoses Unilateral primary osteoarthritis, left knee (03/25/24) Surgery Performed Operation Date: 03/25/24 07:45 Actual Procedures p Left Total Knee Arthroplasty(Left) - Dane Guevara MD Surgical History (Last Reviewed 12/16/23 @ 09:16 by Carlos Vines DO) Anesthesia History of prostatectomy History of total cystectomy History of total knee arthroplasty (~2015) History of urostomy Medical History (Last Updated 03/08/24 @ 10:11 by Alise Almeida RN) 1st degree AV block Anemia Anxiety Bladder cancer (2012) Chicken pox Depression Encounter for subsequent annual wellness visit (AWV) in Medicare patient Facet arthropathy, lumbar Herniated nucleus pulposus, L4-5 History of bladder cancer History of bladder cancer History of chemotherapy History of prostate cancer Hydronephrosis IFG (impaired fasting glucose) Ileostomy present Lesion of left [place] kidney Morbid obesity Mumps Pre-diabetes Presence of urostomy Prostate cancer Spinal stenosis, lumbar region with neurogenic claudication Testicular pain, right Physical Therapy Inpatient Evaluation/Re-Eval M1 PT/OT-IP Prior Functional Status Start: 03/25/24 17:04 Freq: NEEDED Status: Active Protocol: Document 03/25/24 15:35 AB (Rec: 03/25/24 17:17 AB [id number]) Medical Review Prior Functional Status Medical History Reviewed Yes Communication able to make needs known Mobility and Gait pt stated that he was independent with all mobilities and ambulation without AD Social History Household Members spouse Living Arrangements House Number of Floors (Floors) Two Floors Number of Stairs To Enter/Railing? pt stays on main level of the house has a ramp to enter Home Environment Standard Height Toilet,Tub/ Shower,Ramp Home Equipment Front Wheel Walker,Raised Toilet Seat w/Armrests,Shower Seat with Backrest,Hand Held Shower,Grab Bars Near Toilet Additional Social History Comment pt has an adjustable bed M2 PT-IP Current Condition Start: 03/25/24 17:04 Freq: NEEDED Status: Active Protocol: Document 03/25/24 15:35 AB (Rec: 03/25/24 17:17 AB [id number]) Physical Therapy Current Condition Current Condition Evaluation Date 03/25/24 Treatment Diagnosis s/p L TKA; difficulty in walking Onset Date 03/25/24 M3 PT-IP Subjective Start: 03/25/24 17:04 Freq: NEEDED Status: Active Protocol: Document 03/25/24 15:35 AB (Rec: 03/25/24 17:17 AB [id number]) Subjective Physical Therapy Visit Type Type Initial Evaluation Visit Start Time 15:35 Visit Stop Time 16:35 Number of FORECLOSURE SPECIALIST Visits 0 Physical Therapy Visit Comments Patient Comments agreeable to do PT; wants to go home Therapy Pain Assessment Pain When Pain Assessed At Rest Pain Present Pain Present Pain Reported Location Left Knee Intensity 2 Scale Used Numeric (0 - 10) Pain Behaviors Guarding Pain Management Techniques Apply Cold,Distraction, Modification of Treatment,Re- positioning,Timing of Activity with Medications M4 PT-IP Mobility and Gait Start: 03/25/24 17:04 Freq: NEEDED Status: Active Protocol: Document 03/25/24 15:35 AB (Rec: 03/25/24 17:17 AB [id number]) PT-Bed Mobility Assessment Supine to Sit Supine to Sit Standby Assistance,Head of Bed Elevated PT-Transfer Assessment Sit to and From Stand Sit to and from Stand Contact Guard Assistance, Minimal Assistance,1 Person Assistance,Use of Upper Extremities Equipment Transfer Assistive Device Gait Belt,Front Wheeled Walker Orthotic/Prosthetic Devices or Brace: No Transfers Transfer Destination Chair Transfer Technique ambulated Transfer Ability Level of Assist Contact Guard Assistance,1 Person Assistance,Use of Upper Extremities Comments Mobility Comments pt supine in bed and agreeable to do PT. BP 147/60 O2 sat: 96% and SD 70. spouse in room with pt. obtained PLOF and home set up from pt and spouse . post-op folder provided and reviewed contents. reviewed HEP. pt completed supine to sit SBA . able to sit on EOB SBA. completed sit to stand min A and max cues for techniques. pt ambulated in room using FWW CGA and cues for LLE steadiness. pt ambulated ~ 12 ft to the other side of the bed. caregiver training conducted. educated spouse on how to use safety belt and how to assist pt. spouse was able to put safety belt on pt. assisted pt with sit to stand CGA and ambulated pt in room ~ 40 ft using FWW CGA. pt ambulated to chair. positioned pt on the chair. call light and table placed within reach. pt and spouse without further concerns. Gait Assessment Gait Gait Assistance Required: Contact Guard Assist Distance (Feet) 40 Able to Maintain Weight Bearing Status Yes During Gait Assistive Devices Assistive Device Gait Belt,Front Wheeled Walker Orthotic/Prosthetic Devices or Brace: No Gait Deviations General Gait Pattern Antalgic,Decreased Stride Length,Decreased Feet Clearance Factors Limiting Gait Function Factors Limiting Gait Function Decreased Activity Tolerance, Decreased Strength,Limited Range of Motion,Pain,Poor Balance,Poor Safety Awareness PT-Balance Assessment Sitting Balance and Reactions Static Sitting Balance Ability Normal Dynamic Sitting Balance Ability Good Standing Balance and Reactions Static Standing Balance Ability Fair Dynamic Standing Balance Ability Fair Device Used FWW M5 PT-IP Objective Assessments Start: 03/25/24 17:04 Freq: NEEDED Status: Active Protocol: Document 03/25/24 15:35 AB (Rec: 03/25/24 17:17 AB [id number]) Orientation Orientation/Cognition Level of Alertness Alert Orientation Name,Place,Situation Language Function Ability Hard of Hearing Safety Awareness Decreased Safety Awareness Memory Description No Deficits Noted Gross Range of Motion Lower Extremity ROM Impairments R knee flexion: ~ 50 deg R knee extension: ~20 deg less to 0 Strength Lower Extremity Strength Assessment Left Impaired Hip 4-/5 Knee 4-/5 Coordination Assessment Gross Coordination Gross Coordination WNL Sensation Assessment Sensation Gross Sensation WNL Muscle Tone Muscle Tone WNL Yes M6 PT-IP Treatment Start: 03/25/24 17:04 Freq: NEEDED Status: Active Protocol: Document 03/25/24 15:35 AB (Rec: 03/25/24 17:17 AB [id number]) Physical Therapy Treatment Education Education Provided Precautions,Weight Bearing Status,Post-Op Packet,Safety M7 PT-IP Assessment and Plan Start: 03/25/24 17:04 Freq: NEEDED Status: Active Protocol: Document 03/25/24 15:35 AB (Rec: 03/25/24 17:17 AB [id number]) PT Summary Assessment and Plan Potential Rehabilitation Potential Good Status of Condition at Evaluation Stable Summary Impairments Pain,ROM,Strength,Balance, Coordination,Bed Mobility, Transfers,Gait,Activity Tolerance Assessment Summary pt is a 73 y/o M s/p L TKA POD 0. pt is WBAT on LLE. pt requiring CGA to min A with mobility using FWW. caregiver training conducted and spouse was able to assist pt safely. pt plans to go home and spouse to assist. pt has outpt PT setup. pt may go home when medically stable. Goals Bed Mobility Goal Independent Transfer Goal Independent,Front Wheeled Walker Gait Goal Independent,Front Wheel Walker Gait Distance 200 Days to Meet Goals 5 Frequency of Treatment Frequency Of Treatment Twice a Day Treatment Plan Physical Therapy Treatment Plan Bed Mobility Training,Transfer Training,Gait Training, Therapeutic Exercise,Balance Retraining,Post Op Education, Discharge Planning,Hot or Cold Pack,Neuromuscular Re-ed, Coordination Retraining,Manual Therapy Weight Bearing Status Weight Bearing Status Weight Bear as Tolerated Allowed Weight Bearing Amount (enter % LLE WBAT or #) (%) Recommendations To Nursing Amount of Assist Needed 1 Person Assist Discharge Recommendations PT Discharge Recommendations Home with Assistance, Outpatient PT Transportation Needs at Discharge Private Vehicle
--- NOTE | 2024-03-25 15:53 | PC.NURSE ---
Addendum entered by Tamanna Mays R.N. 03/25/24 17:48: Patient is cleared for discharge home with today after PT/OT evaluation. He and verbalize understanding of site care, medications, s/sx of infection, activity limitations, and follow up appointment. He is escorted by HAND SINGER via w/ch to private vehicle with and all of his belongings including FWW for discharge home at approximately 1722. Original Note: Patient arrives to room 223 at 1200 this afternoon. He is A&OX4. VSS, afebrile on RA. SBP slightly elevated. Patient reports pain well controlled with po oxycodone and tylenol. He denies numbness and tingling to BLE's. Sujit wrap c/d/i, pepe dressing flashing green light. He has urostomy bag connected to nicholas bag. He is able to tolerate lunch well and sitting at EOB with PT. MD Guevara at bedside clearing patient for discharge home today pending PT clearance.
--- NOTE | 2024-03-25 16:56 | OT.IP.EVAL ---
Current Diagnoses Unilateral primary osteoarthritis, left knee (03/25/24) Surgery Performed Operation Date: 03/25/24 07:45 Actual Procedures p Left Total Knee Arthroplasty(Left) - Dane Guevara MD Past Medical History (Last Updated 03/08/24 @ 10:11 by Alise Almeida, ADA) 1st degree AV block Anemia Anxiety Bladder cancer (2012) Chicken pox Depression Encounter for subsequent annual wellness visit (AWV) in Medicare patient Facet arthropathy, lumbar Herniated nucleus pulposus, L4-5 History of bladder cancer History of bladder cancer History of chemotherapy History of prostate cancer Hydronephrosis IFG (impaired fasting glucose) Ileostomy present Lesion of left [place] kidney Morbid obesity Mumps Pre-diabetes Presence of urostomy Prostate cancer Spinal stenosis, lumbar region with neurogenic claudication Testicular pain, right Surgical History (Last Reviewed 12/16/23 @ 09:16 by Carlos Vines DO) Anesthesia History of prostatectomy History of total cystectomy History of total knee arthroplasty (~2015) History of urostomy Occupational Therapy Inpatient Evaluation/Re-Eval M2 OT-IP Current Condition Start: 03/25/24 16:58 Freq: Status: Active Protocol: Document 03/25/24 16:58 [facility] (Rec: 03/25/24 17:12 [facility] [id number]) Occupational Therapy Current Condition Current Condition Evaluation Date 03/25/24 Treatment Diagnosis S/P L TKA Diagnosis Onset Date 03/25/24 M3 OT- IP Subjective and Pain Start: 03/25/24 16:58 Freq: Status: Active Protocol: Document 03/25/24 16:58 [facility] (Rec: 03/25/24 17:12 [facility] [id number]) OT- Subjective Occupational Therapy Visit Type Type Initial Evaluation Visit Start Time 16:30 Visit Stop Time 16:58 Occupational Therapy Visit Comments Patient Comments Pt agreed to get dressed and do OT eval. Pt's in the room. Patient/Caregiver Goals TO go home OT Pain Assessment Pain When Pain Assessed During Mobility Pain Present Pain Present Pain Reported Location Left Knee Pain Behaviors Holding Area,[place] M4 OT- IP ADL's Start: 03/25/24 16:58 Freq: Status: Active Protocol: Document 03/25/24 16:58 [facility] (Rec: 03/25/24 17:12 [facility] [id number]) OT [id number] General Evaluation Self-Feeding Ability Independent OT ADL-Grooming General Evaluation Grooming Ability Independent OT ADL-Dressing General Eval Upper Body Dressing Ability Independent Lower Body Dressing Ability Minimal Assistance Comments OT Dressing Comments KEVIN to get clothing over his LLE. Educated to dress his LLE first and take out last. Also to be mindful of his left knee positioning all ADl needs . OT ADL-Toileting Comments OT Toileting Comments Suggested toilet paper aid. OT ADL-Bathing Comments OT Bathing Comments Spoke of another option of transfer pole to assist to get into and out of the tub. M5 OT- IP IADL's Start: 03/25/24 16:58 Freq: Status: Active Protocol: Document 03/25/24 16:58 [facility] (Rec: 03/25/24 17:12 [facility] [id number]) OT-Instrumental Activities of Daily Living Home Safety Awareness Awareness of Need for Assistance at Home Good Awareness Ability to Problem Solve Emergency Able to Problem Solve Situations Home Safety Comments Pt has a very supportive to be able to assist for all his needs. Medication Management Medication Management Comments Pt states to assist him. Money Management Money Management Comments Pt's does the bills. Meal Preparation Meal Preparation Comments Pt states already pre-made sups ahead of time. Produce Team Lead Produce Team Lead Caregiver Provides Assist M6 OT- IP Functional Cognition Start: 03/25/24 16:58 Freq: Status: Active Protocol: Document 03/25/24 16:58 [facility] (Rec: 03/25/24 17:12 [facility] [id number]) Cognitive Factors Limiting Selfcare Function Cognitive Ability Level of Alertness Alert Patient Orientation Name,Age,Birthday,Month,Date, Year,Day of Week,Place, Situation Attention Span Ability Capable of Focused Attention, Capable of Sustained Attention Ability to Follow Commands Able to Follow Multi-Step Commands Cognitive Comments Cognitive Assessment Comments Intact OT- Vision and Hearing OT- Vision Assessment Visual Acuity Glasses All The Time Visual Attentiveness WFL Occular Pursuits WFL M7 OT- IP Mobility and Balance Start: 03/25/24 16:58 Freq: Status: Active Protocol: Document 03/25/24 16:58 [facility] (Rec: 03/25/24 17:12 [facility] [id number]) OT-Transfer Assessment Sit to and From Stand Sit to and from Stand Contact Guard Assistance Comments Mobility Comments CGA to stand to the FWW. Able to wood turner the FWW wheels as create more room for pt legs and for more stability. OT- Balance Assessment Sitting Balance and Reactions Static Sitting Balance Ability Normal Dynamic Sitting Balance Ability Good Standing Balance and Reactions Static Standing Balance Ability Good M8 OT- IP Objective Assessments Start: 03/25/24 16:58 Freq: Status: Active Protocol: Document 03/25/24 16:58 [facility] (Rec: 03/25/24 17:12 [facility] [id number]) OT Gross Range of Motion Upper Extremity Range of Motion Assessment Right Impaired OT Strength Upper Extremity Strength Assessment Within Functional Limits M9 OT- IP Assessment and Plan Start: 03/25/24 16:58 Freq: Status: Active Protocol: Document 03/25/24 16:58 [facility] (Rec: 03/25/24 17:12 [facility] [id number]) OT Summary Assessment and Plan Potential Rehabilitation Potential Excellent Analytic Complexity at Evaluation Moderate Summary OT Impairments Pain,Strength,Balance, Functional Mobility,Dressing, Toileting,Bathing,Toilet Transfers,Shower Transfers Progress Towards Goals Progressing Toward Goals Assessment Summary Pt low complexity and main barriers are pain and that he will need more assist or use of LB dressing equipment for ADL needs due to pain and difficulty to lift his leg up at this time. Pt to go home with his and have outpt PT. Goals Dressing Goal Independent,Long Handled Shoe [place],Seed [place] Toileting Goal Standby Assistance Bathing Goal Minimal Assistance Toilet Transfer Goal Independent Shower Transfer Goal Standby Assistance Days to Meet Goals 3 Frequency of Treatment Frequency Of Treatment Once a Day Treatment Plan OT Treatment Plan ADL Training,Functional Mobility,Patient/Family Education,Discharge Planning Discharge Recommendations OT Discharge Recommendations Home with Assistance, Outpatient PT Home Equipment Needs Toilet paper aid Transportation Needs at Discharge Private Vehicle
== END 2024-03-25 17:22 | disposition home or self-care (01) ==
LOC: OR 06:15 → AC 06:17
PROVIDERS: Physician Assistant; Family Provider Internal Medicine; PCP Family Medicine; Referring Provider Orthopaedic Surgery Adult Reconstructive Orthopaedic Surgery; Visit Provider Orthopaedic Surgery Adult Reconstructive Orthopaedic Surgery
PROC: 0SRD0JZ Replacement of Left Knee Joint with Synthetic Substitute, Open Approach (ICD-10-PCS; CPT 27447; principal; 2024-03-25 07:45)
DX: M17.12 Unilateral primary osteoarthritis, left knee (principal); M25.762 Osteophyte, left knee
CPT/HCPCS: 27447; 36415; 73560; 82962; 85014; 85018; 97161; 97165; 97530; 97535; C1776; J0690; J2250; J2405; J2704; J3010

== ENCOUNTER → 2024-08-15 10:41 | Outpatient (CLI) | payer MEDICARE, OTHER, SELFPAY ==
[2024-03-25 14:39] VITALS: BMI 45.0
[2024-08-15 11:28] LABS: Hematocrit 41.2 % (41-53); Hemoglobin 13.8 g/dL (13.5-17.5); Mean Corpuscular HGB Conc 33.5 % (30-36); Mean Corpuscular Hemoglobin 29.9 PG (26-34); Mean Corpuscular Volume 89.4 fL (80-100); Platelet Count 176 X10^3/uL (150-400); Red Blood Cell Count 4.61 X10^6/uL (4.5-5.9); Red Cell Distribution Width 13.5 % (11.6-14.8); White Blood Cell Count 7.1 X10^3/uL (4.5-11.0)
[2024-08-15 11:39] LABS: Hemoglobin A1C% w Est Avg Glu 6.3 % (4.0-6.0)
[2024-08-15 12:00] LABS: Alanine Aminotransferase 24 IU/L (<50); Albumin 4.3 g/dL (3.5-5.0); Albumin Globulin Ratio 1.6 (1.0-2.8); Alkaline Phosphatase 116 U/L (38-126); Aspartate Aminotransferase 27 IU/L (17-59); BUN Creatinine Ratio 25.9 (6-22); Bilirubin Total 0.3 mg/dL (0.2-1.3); Blood Urea Nitrogen 29 mg/dL (9-20); Calcium 9.5 mg/dL (8.4-10.2); Carbon Dioxide 22 mmol/L (22-32); Chloride 108 mmol/L (98-107); Cholesterol 143 mg/dL (140-199); Estimated Glomerular Filt Rate > 60 mL/min (>60); Globulin 2.7 g/dL (1.7-4.1); Glucose 102 mg/dL (80-110); HDL Cholesterol 38 mg/dL (40-60); HEMOLYSIS < 15 (0-50); LDL Cholesterol Calculated 58 mg/dL (<100); Potassium 4.6 mmol/L (3.4-5.1); Sodium 139 mmol/L (137-145); Triglycerides 236 mg/dL (35-150)
== END ==
PROVIDERS: Family Provider Internal Medicine; PCP Family Medicine; Referring Provider Family Medicine; Visit Provider Family Medicine
DX: E66.01 Morbid (severe) obesity due to excess calories (principal); R73.01 Impaired fasting glucose; Z00.00 Encounter for general adult medical examination without abnormal findings; D64.9 Anemia, unspecified; Z93.6 Other artificial openings of urinary tract status
CPT/HCPCS: 36415; 80053; 80061; 83036; 85027

== ENCOUNTER → 2024-09-12 13:29 | Outpatient (CLI) | payer MEDICARE, OTHER, SELFPAY ==
[2024-03-25 14:39] VITALS: BMI 45.0
--- NOTE | 2024-09-12 13:31 | DI.US.S_ITS ---
PROCEDURE: US RENAL COMPLETE INDICATIONS: History of left hydronephrosis TECHNIQUE: Real-time scanning was performed of the kidneys and bladder, with image documentation. COMPARISON: , , US RENAL COMPLETE, 03/10/2024, 12:26. FINDINGS: Kidneys: Kidneys are normal in size. Right kidney measures 11.7 cm long; left kidney measures 11.4 cm long. Right renal cortical thickness is 1.8 cm; left renal cortical thickness is 2.0 cm. Renal cortical echotexture is normal. No hydronephrosis. 1 cm focus of increased echogenicity within the left kidney is present. Bladder: Not evaluated. Miscellaneous: No free pelvic fluid. IMPRESSION: Non-obstructing left renal calculus. Dictated by: Kayli Chaney M.D. on 09/12/2024 at 16:15 Approved by: Kayli Chaney M.D. on 09/12/2024 at 16:17
[2024-09-12 17:57] LABS: Prostate Specific Antigen < 0.064 ng/mL (0.10-4.00)
[2024-09-14 17:08] LABS: Fecal Immunochemical Test Negative (Negative)
== END ==
PROVIDERS: Family Provider Internal Medicine; PCP Family Medicine; Referring Provider Urology; Visit Provider Urology
DX: Z85.46 Personal history of malignant neoplasm of prostate (principal); N13.30 Unspecified hydronephrosis; Z12.11 Encounter for screening for malignant neoplasm of colon; Z90.79 Acquired absence of other genital organ(s); N20.0 Calculus of kidney
CPT/HCPCS: 36415; 76770; 82274; 84153

== ENCOUNTER → 2025-01-31 10:21 | Outpatient (CLI) | payer MEDICARE, OTHER, SELFPAY ==
[2024-03-25 14:39] VITALS: BMI 45.0
[2025-01-31 11:25] LABS: Add Manual Diff / Slide Review NO; Hematocrit 41.2 % (41-53); Hemoglobin 13.8 g/dL (13.5-17.5); Lymphocytes Absolute Auto 1500 /uL (1100-4500); Mean Corpuscular HGB Conc 33.4 % (30-36); Mean Corpuscular Hemoglobin 29.7 PG (26-34); Mean Corpuscular Volume 88.9 fL (80-100); Platelet Count 167 X10^3/uL (150-400)
[2025-01-31 11:45] LABS: Hemoglobin A1C% w Est Avg Glu 6.1 % (4.0-6.0)
[2025-01-31 11:56] LABS: Alanine Aminotransferase 17 IU/L (<50); Albumin 4.2 g/dL (3.5-5.0); Albumin Globulin Ratio 1.6 (1.0-2.8); Alkaline Phosphatase 114 U/L (38-126); Blood Urea Nitrogen 25 mg/dL (9-20); Calcium 9.2 mg/dL (8.4-10.2); Carbon Dioxide 21 mmol/L (22-32); Chloride 107 mmol/L (98-107); Estimated Glomerular Filt Rate > 60 mL/min (>60); Globulin 2.7 g/dL (1.7-4.1); Glucose 92 mg/dL (70-99); HEMOLYSIS < 15 (0-50); Potassium 4.6 mmol/L (3.4-5.1); Sodium 138 mmol/L (137-145); Total Protein 6.9 g/dL (6.3-8.2)
[2025-01-31 12:26] LABS: Prostate Specific Antigen < 0.064 ng/mL (0.10-4.00)
== END ==
PROVIDERS: Family Provider Internal Medicine; PCP Family Medicine; Referring Provider Urology; Visit Provider Urology
DX: R73.01 Impaired fasting glucose (principal); Z85.51 Personal history of malignant neoplasm of bladder; Z85.46 Personal history of malignant neoplasm of prostate; Z93.6 Other artificial openings of urinary tract status; Z92.21 Personal history of antineoplastic chemotherapy; Z90.79 Acquired absence of other genital organ(s); Z90.6 Acquired absence of other parts of urinary tract
CPT/HCPCS: 36415; 80053; 83036; 84153; 85025

== ENCOUNTER → 2025-02-28 15:46 | Outpatient (CLI) | payer MEDICARE, OTHER, SELFPAY ==
[2024-03-25 14:39] VITALS: BMI 45.0
--- NOTE | 2025-02-28 16:18 | DI.US.S_ITS ---
PROCEDURE: US RENAL COMPLETE INDICATIONS: Evaluate recurrent hydro TECHNIQUE: Real-time scanning was performed of the kidneys and bladder, with image documentation. COMPARISON: [facility], , US RENAL COMPLETE, 09/12/2024, 13:51. FINDINGS: Kidneys: Kidneys are normal in size. Right kidney measures 11.9 cm long; left kidney measures 11.2 cm long. Right renal cortical thickness is 1.7 cm. Left renal cortical thickness is normal. Renal cortical echotexture is normal. No right nephrolithiasis. No right hydronephrosis. A 1.4 cm hyperechoic focus in the left inferior pole calyx and a a 1 cm focus in the left lower pole calyx without associated hydronephrosis or twinkle artifact. Left lower pole exophytic 1.7 cm simple cyst No suspicious solid mass lesions. Bladder: Post urostomy. Miscellaneous: No free pelvic fluid. IMPRESSION: Non-obstructive left nephrolithiasis. No associated hydronephrosis. Dictated by: Kwabena Christianson M.D. on 03/01/2025 at 11:32 Approved by: Kwabena Christianson M.D. on 03/01/2025 at 11:39
== END ==
PROVIDERS: PCP Family Medicine; Referring Provider Urology; Visit Provider Urology
DX: N13.30 Unspecified hydronephrosis (principal); N20.0 Calculus of kidney; Z93.6 Other artificial openings of urinary tract status
CPT/HCPCS: 76770

== ENCOUNTER → 2025-04-14 10:58 | Outpatient (CLI) | payer MEDICARE, OTHER, SELFPAY ==
[2024-03-25 14:39] VITALS: BMI 45.0
[2025-04-14 11:10] LABS: Appearance Urine UA SL CLOUDY; Bilirubin Urine UA NEGATIVE (NEGATIVE); Color Urine UA YELLOW; Glucose Urine UA NEGATIVE (Negative); Ketones Urine UA NEGATIVE (NEGATIVE); Leukocyte Esterase Urine UA 3+ (NEGATIVE); Nitrite Urine UA NEGATIVE (Negative); Occult Blood Urine UA 3+ (Negative); Protein Urine UA 2+ (Negative); Specific Gravity Urine UA <=1.005 (1.000-1.035); Urobilinogen Urine UA 0.2 E.U./dL (0.2); pH Urine UA 6.5 (4.5-8.0)
[2025-04-14 11:35] LABS: Culture Indicated Urine Specimen Cultured
== END ==
LOC: LAB 10:58
PROVIDERS: PCP Family Medicine; Referring Provider Family Medicine; Visit Provider Family Medicine
DX: R82.90 Unspecified abnormal findings in urine (principal)
CPT/HCPCS: 81001; 87077; 87086; 87186

== ENCOUNTER → 2025-06-27 13:14 | Outpatient (CLI) | payer MEDICARE, OTHER, SELFPAY ==
[2024-03-25 14:39] VITALS: BMI 45.0
== END ==
PROVIDERS: Family Provider Family Medicine; PCP Family Medicine; Referring Provider Urology; Visit Provider Surgery
DX: L24.B3 Irritant contact dermatitis related to fecal or urinary stoma or fistula (principal)
CPT/HCPCS: 99213

== ENCOUNTER → 2025-07-11 11:28 | Outpatient (CLI) | payer MEDICARE, OTHER, SELFPAY ==
[2024-03-25 14:39] VITALS: BMI 45.0
[2025-07-11 12:51] LABS: Appearance Urine UA SL CLOUDY; Bilirubin Urine UA NEGATIVE (NEGATIVE); Color Urine UA YELLOW; Glucose Urine UA NEGATIVE (Negative); Ketones Urine UA NEGATIVE (NEGATIVE); Leukocyte Esterase Urine UA 3+ (NEGATIVE); Nitrite Urine UA NEGATIVE (Negative); Occult Blood Urine UA 3+ (Negative); Protein Urine UA TRACE (Negative); Specific Gravity Urine UA <=1.005 (1.000-1.035); Urobilinogen Urine UA 0.2 E.U./dL (0.2); pH Urine UA 6.0 (4.5-8.0)
[2025-07-11 13:01] LABS: Culture Indicated Urine Specimen Cultured
== END ==
PROVIDERS: PCP Family Medicine; Referring Provider Family Medicine; Visit Provider Family Medicine
DX: R30.0 Dysuria (principal)
CPT/HCPCS: 81001; 87086